=== PATIENT | male | born 1945 | race Caucasian/White ===

== ENCOUNTER 2017-08-21 11:55 | Day surgery (SDC) | payer MEDICARE, BC ==
[2017-08-21] MEDS ORDERED: LIDOCAINE HCL 10 APPL CARTRIDGE TP ONE (13:13)
--- NOTE | 2017-08-21 13:29 | OR ---
Operative Report - Dictated Report Narrative: Location: Main OR Anesthesia: Lidocaine jelly per urethra/local Preoperative Diagnosis: Gross hematuria Postoperative Diagnosis: Same, couple of false passages one in the area of prior AUS cuff erosion the other near bladder neck Procedure: #1 flexible cystoscopy with washing for cytology and culture Indications: 72-year-old male with history of prostate cancer post prostatectomy patient had AUS complicated by erosion and infection post explant. Significant incontinence and recent episode of gross hematuria. CT with left-sided renal stones but no other obvious pathology. Cystoscopy indicated to assess for bladder pathology and sure nothing else hiding there. Description: Consent obtained. Placed in the supine position. Prepped and draped. Time-out taken . Lidocaine jelly introduced into the urethra without incident. Flexible scope inserted into the urethra and navigated towards the bladder. Distal urethra has a blanching/colonization appearance secondary to colonization and significant incontinence. It is not pathologically narrowed. Prior distal cuff placement location remains as a slightly narrower portion of the urethra. At the 8 o'clock position is a small false passage-like opening I would say about the size of the cuff. Doesn't look like it tracts very far but obviously I did not tried to explore that with the scope. Bypassed easily navigated more proximally to the sphincter which does not coapt well. Anastomosis inspected and there is another false passage on the posterior right side again I did not introduce scope into that area but it almost gives the appearance that it is the right ureteric orifice. This is not the case. On further inspection both ureters are bit more proximal to this and there are normal post prostatectomy location effluxing clear urine. Bladder has some mild trabeculation but no tumor stones or suspicious lesions. They be a little bit of mild debris but nothing significant. Washing for cytology and culture. Anastomotic area looks okay other than that slight false passage like/ diverticular-like area. I don't think these are clinically significant but they may pose slight risk to future AUS placement and I would recommend cannulation and contrast injection to make sure that they dont track too far north or south. Normal urethra EBL: 0 Specimen: none Condition: tolerate procedure Important Findings: No clinically significant concerning cause for the gross hematuria. Diverticular/false passage-like areas near anastomosis posterior right side and in area of prior cuff placement 8 o'clock position. Could pose a problem on future AUS placement if those spaces entered or injured during future device placement as it would expose device to urinary tract. FOLLOW UP: I will see him in 12 months with a PSA/UA/creatinine. Sooner if trouble. Has already met with Dr. Kilgore.
[2017-08-21 13:45] VITALS: BP 144/67
== END 2017-08-21 11:56 | disposition home or self-care (01) ==
LOC: AMB 11:55
PROVIDERS: ATTEND Urology
PROC: 0TJB8ZZ Inspection of Bladder, Via Natural or Artificial Opening Endoscopic (ICD-10-PCS; principal; 2017-08-21)
PROC: 3E1K78Z Irrigation of Genitourinary Tract using Irrigating Substance, Via Natural or Artificial Opening (ICD-10-PCS; 2017-08-21)
DX: N20.0 Calculus of kidney; R31.0 Gross hematuria; Z85.46 Personal history of malignant neoplasm of prostate; N39.3 Stress incontinence (female) (male); Z79.899 Other long term (current) drug therapy

== ENCOUNTER 2020-01-23 22:24 | Inpatient (IN) ==
--- NOTE | 2020-01-23 22:54 | ERNOTE ---
Medical Problem HPI - General Chief Complaint: Fever Time Seen by Provider: 01/23/20 22:45 Source: patient, RN notes reviewed Exam Limitations: no limitations - Immun/Allergies/Home Medications Immunizations: IMMUNIZATION HX Immunizations Up to Date Yes History of Influenza Vaccine Yes Hx Pneumococcal Vaccination Yes Allergies/Adverse Reactions: Allergies Sulfa (Sulfonamide Antibiotics) [Sulfa(Sulfonamide Antibiotics)] Allergy (Severe, Verified 01/20/20 12:34) facial and tongue swelling tetracycline [Tetracycline] Allergy (Severe, Verified 01/20/20 12:34) facial and tongue swelling clindamycin Allergy (Intermediate, Verified 01/20/20 12:34) rash on genitals levofloxacin [From Levaquin] Adverse Reaction (Intermediate, Verified 01/20/20 12:34) severe rash seasonal allergies Adverse Reaction (Intermediate, Uncoded 01/20/20 12:34) rhinitis Home Medications: HOME MEDICATIONS Atorvastatin Calcium 20 mg PO DAILY 12/31/16 [Last Taken Unknown] Irbesartan [Avapro] 300 mg PO DAILY 12/31/16 [Last Taken Unknown] cyanocobalamin (vitamin B-12) 1,000 mcg tablet 1,000 mcg PO DAILY 01/24/18 [Last Taken Unknown] OneTouch Delica Lancets 30 gauge See Dose Instructions .ROUTE .MEDSUPPLY #200 ea NS 07/14/18 [Last Taken Unknown] dabigatran etexilate 150 mg capsule 150 mg PO BID 01/07/19 [Last Taken Unknown] polyethylene glycol 3350 17 gram/dose oral powder 17 g PO BID 01/07/19 [Last Taken Unknown] pregabalin 100 mg capsule 100 mg PO QID 01/07/19 [Last Taken Unknown] sennosides 8.6 mg tablet 8.6 mg PO BID 01/07/19 [Last Taken Unknown] clotrimazole-betamethasone 1 %-0.05 % topical cream 1 applic TP Q12H #45 g 06/08/19 [Last Taken Unknown] allopurinol 100 mg tablet 100 mg PO BID #180 tab 08/17/19 [Last Taken Unknown] blood sugar diagnostic See Dose Instructions .ROUTE .MEDSUPPLY #100 ea 09/14/19 [Last Taken Unknown] metformin 500 mg tablet 500 mg PO BID #180 tab 09/29/19 [Last Taken Unknown] mometasone 0.1 % topical solution 1 applic TP BID ml 11/17/19 [Last Taken Unknown] Aspirin [Aspirin EC] 81 mg PO DAILY 12/03/19 [Last Taken Unknown] Ferrous Sulfate [High Potency Iron] 27 mg PO DAILY 12/03/19 [Last Taken Unknown] Lactobacillus Rhamnosus GG [Culturelle] 1 tab PO DAILY 12/03/19 [Last Taken Unknown] Levomefolate/B6/B12/Algal Oil [Metanx Capsule] 1 ea PO DAILY 12/03/19 [Last Taken Unknown] Metoprolol Succinate [Toprol Xl] 50 mg PO DAILY 12/03/19 [Last Taken Unknown] acetaminophen 500 mg tablet 500 mg PO Q6H PRN #0.1 tab 12/04/19 [Last Taken Unknown] amlodipine 2.5 mg tablet 2.5 mg PO DAILY #0.1 tab 12/04/19 [Last Taken Unknown] hydrochlorothiazide 12.5 mg tablet 12.5 mg PO DAILY #30 tab 12/17/19 [Last Taken Unknown] fentanyl 12 mcg/hr transdermal patch 1 patch TRANSDERMAL Q72H #5 ea 01/13/20 [Last Taken Unknown] - History of Present History Narrative: Patient is a 74-year-old white male with past medical history significant diabetes, hypertension, hyperlipidemia, obstructive sleep apnea was in his usual state of health until yesterday afternoon when he began having fatigue, malaise, headache and low-grade fevers which progressed to higher fevers today with associated shortness of breath. He denies a productive cough, chest pain, ill contacts or wheezing. He does state he has had nausea but no vomiting, orthopnea and lower extremity edema. He denies history of CHF, but has had A. fib in the past, but is on no anticoagulants. He does take an 81 mg aspirin daily. He has no known ill contacts. Denies any abdominal pain, diarrhea or constipation. He has had some urinary frequency and hesitation. He has become progressively weaker and more dyspneic on exertion throughout the day. Timing: getting worse Severity: moderate Modifying Factors - (Improves): Present: rest Modifying Factors - (Worsens): Present: movement Review of Systems - Review of Systems Constitutional: Present: fever, weakness, fatigue, malaise. Absent: chills EYE: Absent: blurred vision, double vision ENT: Absent: nose congestion, sore throat Respiratory: Present: shortness of breath, orthopnea. Absent: cough, wheezing, stridor Cardiology: Present: edema. Absent: chest pain, palpitations, syncope, claudication Gastrointestinal/Abdominal: Present: nausea. Absent: vomiting, diarrhea, constipation, abdominal pain Genitourinary: Present: frequency, dysuria. Absent: hematuria, decreased urinary output Musculoskeletal: Absent: back pain, muscle stiffness, neck pain, joint pain Skin: Present: no symptoms reported Neurological: Present: headache, dizziness/light-headedness, weakness. Absent: numbness, tingling Endocrine: Absent: excessive sweating, flushing, intolerance to heat, intolerance to cold Hematologic/Lymphatic: Absent: easy bruising, easy bleeding Psych: Absent: anxiety, depressed Medical History (Last Reviewed 01/24/20 @ 00:21 by Jose Ramon Cruz MD) Diabetic ulcer of left foot (Acute) Onset Date: Unknown BPH with urinary obstruction Onset Date: Unknown Dr. Raul Fall MD Back pain Onset Date: Unknown L2-3 disc bulge Incontinence Onset Date: Unknown Influenza vaccine refused Onset Date: Unknown Wants to receive at later date. 04/06/19. [facility] Prostate cancer Onset Date: Unknown Urinary incontinence Onset Date: Unknown Atrial fibrillation Onset Date: ~1995 PAF Coronary artery disease Onset Date: Unknown Diabetes Onset Date: Unknown Diabetes mellitus type 2 in obese Onset Date: Unknown Elevated cholesterol Onset Date: Unknown Hyperlipidemia Onset Date: Unknown Hypertension Onset Date: Unknown Joint pain Onset Date: 09/06/11 Neuropathy Onset Date: Unknown Obesity Onset Date: Unknown Osteoarthritis Onset Date: 09/06/11 Sleep apnea Onset Date: Unknown CPAP Hx of intestinal obstruction Onset Date: Unknown Kidney stones Onset Date: ~08/2002 Partial small bowel obstruction Onset Date: Unknown Surgical History: Surgical History (Last Reviewed 01/24/20 @ 00:21 by Jose Ramon Cruz MD) Abnormal colonoscopy Onset Date: 01/09/10 [place]-2 tubular adenomas and 1 hyperplastic polyp H/O barium enema Onset Date: 05/19/15 normal-redundant colon. Recheck in 10 years. H/O cardiac catheterization Onset Date: 11/26/02 normal EF minimal CAD right dominant H/O cardioversion Onset Date: 01/21/03 Dr. Leonardo SAVAGE H/O lithotripsy Onset Date: ~05/2008 H/O radical prostatectomy Onset Date: ~12/2009 History of extraction of renal calculus Onset Date: ~07/2008 History of gastric surgery Onset Date: ~1999 Hx of abdominal surgery Onset Date: Unknown Hx of total knee arthroplasty Onset Date: ~2009 [place] Normal colonoscopy Onset Date: 05/18/15 03/14/01' Karlabiancajayant. 15' Rei-extremely redundant capacious colon. Normal to hepatic flexure. Barium edema done-nomal. Recheck 10 years with barium edema. Normal cystoscopy Onset Date: 12/09/13 [place] Status post epidural steroid injection Onset Date: 05/18/15 x2 07/22/02 artificial urinary sphincter insertion Onset Date: ~2010 [facility] Family History: Family History (Last Reviewed 01/24/20 @ 00:21 by Jose Ramon Cruz MD) Brother Heart disease, Onset Age: 44 coronary stent placement Neuropathy Brother , age 7-ruptured appendix age 65- suicide Ruptured appendix suicide Father , 77 Emphysema of lung Mother , 62 Myocardial infarction Hypertension Cancer Breast Diabetes Heart disease Sister Myocardial infarction Heart disease Sister Myocardial infarction 44, 48, 62, and 65 Cancer, Onset Age: 62 breast CHF (congestive heart failure), Onset Age: 85 Son A-fib paroxysmal Social History: (Last Reviewed 01/24/20 @ 00:21 by Jose Ramon Cruz MD) Social History: Marital status: household members: spouse current occupational status: retired Highest education level completed: high school graduate Service: No Tobacco: Smoking Status: Never smoker Alcohol: alcohol intake: former Substance Use: substance use type: does not use Dietary Habits: caffeine: Yes caffeine comment: 2-3 Type: coffee Personal Safety: victim of physical abuse: No victim of sexual abuse: No Physical Exam - Physical Exam General Appearance: Present: wd/wn, alert, moderate distress, other - Looks tired and weak Head Exam: Present: normal inspection, no evidence of injury Eye Exam: Normal inspection: bilateral, PERRL: bilateral, EOMI: bilateral Neck: Present: supple Respiratory: Present: no accessory muscle use, respiratory distress, rales Cardiovascular/Chest: Present: regular rate, rhythm, systolic murmur - Significant left upper sternal border murmur - 5/6 Gastrointestinal/Abdominal: Present: normal bowel sounds, nontender, no ndistended, soft, no organomegaly Extremity Exam: Present: non-tender, extremity edema Neurological Exam: Present: alert, oriented, normal mood/affect, no motor/sensory deficits Skin Exam: Present: normal color, warm/dry Progress - Results and Orders Patient's Lab Results:: I have reviewed the patient's lab results. Results and Orders: Laboratory Tests 01/23/20 01/23/20 23:00 23:00 Sodium 138 Plasma Sodium 139 Potassium 3.4 Chloride 105 Carbon Dioxide 21.7 L Anion Gap 14.7 H BUN 53 H D Creatinine 2.40 H D Est GFR (Non-Af Amer) 28 L D BUN/Creatinine Ratio 22.1 H Random Glucose 177 H Lactic Acid, Venous 4.1 H* Calcium 8.5 Calcium Adj for Albumin 9.1 Total Bilirubin 2.8 H AST 61 H ALT 69 H Alkaline Phosphatase 186 H Troponin I 0.363 H* C-Reactive Prot, Quant Pending B-Natriuretic Peptide 5884 H Total Protein 6.5 Albumin 2.8 L Laboratory Tests 01/23/20 23:10 WBC 18.4 H RBC 3.95 L Hgb 12.0 L Hct 36.7 L MCV 92.9 MCH 30.4 MCHC 32.7 RDW 15.1 H Plt Count 64 L MPV 13.0 H Neutrophils % (Manual) 85 H Band Neuts % (Manual) 2 Lymphocytes % (Manual) 6 L Monocytes % (Manual) 4 Immature Granulocytes 2 H Neutrophils # (Manual) 15.6 H Lymphocytes # (Manual) 1.1 L Monocytes # (Manual) 0.7 Atypic/Reactive Lymphs 1 Platelet Estimate Decreased L Laboratory Tests 01/23/20 23:00 SARS-CoV-2 (PCR) Not detected Laboratory Tests 01/23/20 23:00 PT 14.7 H INR (Anticoag Therapy) 1.51 H PTT (Sarmad) 41.8 H Laboratory Tests 01/23/20 23:55 Urine Color Dark yellow Urine Appearance Slightly cloudy Urine pH 5.0 Ur Specific [place] 1.020 Urine Protein 15 H Urine Glucose (UA) Negative Urine Ketones 5 Urine Blood 50 H Urine Nitrate Negative Urine Bilirubin 1 H Urine Ictotest Negative Prot Sulfosalicylic Acd Negative Urine Urobilinogen Normal Ur Leukocyte Esterase 25 H Urine RBC 0-5 Urine WBC 0-5 Ur Epithelial Cells Trace Amorphous Sediment Moderate - 2+ H Urine Bacteria 1+ H Urine Culture Comments Culture to follow Repeat troponin I was 0.353, repeat lactic acid was 2.3 - Vital Signs Patient's Vital Signs:: I have reviewed the patient's vital signs. Vital Signs: Vital Signs 01/23/20 22:36 Temperature 39.5 C H Pulse Rate 62 Respiratory Rate 20 Blood Pressure 135/45 O2 Sat by Pulse Oximetry 95 - EKG EKG #1 EKG read: Interp. by me EKG Comments: Paced EKG. EKG #2 EKG: other - Paced EKG unchanged from previous earlier this evening. EKG read: Interp. by me - X-Ray X-Ray #1 X-Ray: chest Interpretation: Interp. by me X-ray Comments: Chest x-ray shows pulmonary edema bilaterally. Right lower lobe consolidation. Noted pacemaker in left upper chest wall - Progress/Reassessment Chief Complaint: Fever Progress:: Improved Progress Note-Subjective: 01/24/20 02:13 Patient states that nausea had improved after Aspirin given and he feels less short of breath. 01/24/20 03:51 Uncertainty as to how much urine output patient has had due to incontinence. Patient did express feeling better at time of transfer to the floor. - Transfer of Care Expected Disposition: Admit Additional Notes: Patient discussed with Dr. Horne was agreeable to admit patient for sepsis, pneumonia, acute CHF, cardiac strain and acute kidney injury. Discussed with her troponin I trends, lactic acid trends and the fact that no IV fluids were given due to stable blood pressures, heart rate and the fact that patient had elevated BNP with chest x-ray consistent with pulmonary edema. Plan - Plan Plan: Patient with numerous abnormalities. Given his past medical history will check to be sure is not an CHF given his shortness of breath, orthopnea and lower extremity edema. Also check to make sure is not having an acute SD though initial EKG is hard to interpret given his pacemaker. Given his fever would also be worried about a pneumonia. Patient does have lactic acidosis with a level of 4.1 but also has an elevated BMP of 5800 and no history of CHF in the past. Lactic acidosis could be secondary to acute coronary syndrome, though given his fever would be more likely associated with sepsis. Chest x-ray does show possible pneumonia but also shows some pulmonary edema and blood pressures and heart rate are normal so will not give him fluid bolus at this time. Given his elevated troponin, again this could be cardiac strain versus acute coronary syndrome. We will give him aspirin, Lasix for the CHF and pulmonary edema and monitor his symptoms. Nitroglycerin was a consideration but was not given to him due to concerns for bottoming out his pressures given that he has findings consistent with sepsis and were about to give him some Lasix for his CHF. We will repeat his troponin I, 3 hours from the initial 1. If this is trending up we will look to transfer to facility with cardiology. Patient would prefer going to [facility] as that is where he follows with cardiology, but we were informed earlier this evening that [facility] has no available beds. Also given Medicare rules we would need to first look to [facility] as an initial transfer consideration. Due to troponin I trending down slightly, as well as improvement in the lactic acid despite no IV fluids given, felt patient was stable enough for admission here. Discussed with Dr. Horne who is agreeable to this. Departure Clinical Impression: Sepsis, Lactic acidosis, Elevated troponin I level, MANDEEP (acute kidney injury) CHF (congestive heart failure) Qualifiers: Heart failure type: combined systolic and diastolic Heart failure chronicity: acute Qualified Code(s): I50.41 - Acute combined systolic (congestive) and diastolic (congestive) heart failure Right lower lobe pneumonia Qualifiers: Pneumonia type: due to unspecified organism Qualified Code(s): J18.9 - Pneumonia, unspecified organism - Departure Disposition: Still a patient Condition: Fair
[2020-01-23 23:18] LABS: Hematocrit 36.7 % (42.0-52.0); Mean Cell Volume 92.9 fl (78-100); Mean Corpuscular Hemoglobin 30.4 pg (27-31); Mean Corpuscular Hgb Conc 32.7 g/dl (32-36); Red Blood Count 3.95 M/mm3 (4.7-6.0); Red Cell Distribution Width 15.1 % (11.5-14.0); White Blood Count 18.4 K/mm3 (4.0-10.5)
[2020-01-23 23:39] LABS: Albumin * 2.8 gm/dl (3.4-5.0); Anion Gap 14.7 mmol/L (6.8-13.8); BUN/Creatinine Ratio 22.1 (9.0-21.6); Bilirubin, Total 2.8 mg/dL (0.0-1.1); Ca. Corrected For Albumin 9.1 mg/dL (8.4-10.2); Calcium * 8.5 mg/dL (7.9-10.9); Carbon Dioxide 21.7 mmol/L (24-32.6); Potassium 3.4 mmol/L (3.4-4.6); Total Protein 6.5 gm/dL (6.2-8.2)
[2020-01-23] MEDS ORDERED: RINGER'S SOLUTION,LACTATED 1,000 ML IV ONE (23:42)
[2020-01-23 23:46] LABS: Troponin I 0.363 ng/mL (0.00-0.10)
[2020-01-24 00:04] LABS: Platelet Count 64 K/mm3 (150-450)
[2020-01-24 00:05] LABS: Total Cells Counted 100
[2020-01-24 00:06] LABS: Atypical (Reactive) Lymph 1 % (0-2); Band 2 % (0-2.0); Immature Granulocyte 2 (0-1); Lymphocyte 6 % (20-51); Monocyte 4 % (0-9); Neutrophil 85 % (42-75); Neutrophil # 15.6 K/mm3 (1.3-6.0); Platelet Estimate Decreased (NORMAL)
[2020-01-24] MEDS ORDERED: ASPIRIN 81 MG TAB.CHEW PO STA (00:08)
[2020-01-24] MEDS ORDERED: NITROGLYCERIN 0.4 MG/TAB BTL SL STA (00:08)
[2020-01-24 00:11] LABS: CRP 22.5 mg/dL (0.0-0.9)
[2020-01-24] MEDS ORDERED: cefTRIAXone SODIUM 1,000 MG/100 ML BAG IV ONE (00:12)
[2020-01-24] MEDS ORDERED: FUROSEMIDE 10 MG/ML VIAL IV STA (00:12)
[2020-01-24 00:17] LABS: Prothrombin Time (Patient) 14.7 Seconds (9.1-10.7)
[2020-01-24 00:19] LABS: INR 1.51 INR (0.92-1.08); Partial Thrombolplastin Time 41.8 Seconds (24-32)
[2020-01-24] MEDS ORDERED: ACETAMINOPHEN 1,000 MG/100 ML BTL IV PRN (00:19)
[2020-01-24 00:33] LABS: Urine Bilirubin 1 mg/dl (NEGATIVE); Urine Blood 50 /ul (NEGATIVE); Urine Ketone 5 mg/dL (NEGATIVE); Urine Nitrite Negative (NEGATIVE); Urine Protein 15 mg/dL (NEGATIVE); Urine Urobilinogen Normal (NORMAL)
[2020-01-24 00:42] LABS: Urine Amorphous Sediment Moderate - 2+ (NONE-FEW); Urine Appearance Slightly Cloudy (CLEAR); Urine Bacteria 1+; Urine Color Dark Yellow; Urine RBC 0-5 /hpf (0-5); Urine WBC 0-5 /hpf (0-5)
[2020-01-24] MEDS ORDERED: ACETAMINOPHEN 325 MG TABLET PO PRN (03:00)
[2020-01-24] MEDS: NORMAL SALINE 1,000 ML IV PRN ×3 (04:09→20:35)
[2020-01-24 06:50] LABS: Hematocrit 32.6 % (42.0-52.0); Hemoglobin 10.8 gm/dL (13.5-18.0); Mean Cell Volume 93.4 fl (78-100); Mean Corpuscular Hemoglobin 30.9 pg (27-31); Mean Corpuscular Hgb Conc 33.1 g/dl (32-36); Mean Platelet Volume 12.7 fl (8-11.3); Neutrophil # 14.4 K/mm3 (1.3-6.0); Neutrophil % 83.9 % (42-75.0); Platelet Count 57 K/mm3 (150-450); Red Blood Count 3.49 M/mm3 (4.7-6.0); Red Cell Distribution Width 15.2 % (11.5-14.0); White Blood Count 17.2 K/mm3 (4.0-10.5)
[2020-01-24 07:07] LABS: Anion Gap 12.6 mmol/L (6.8-13.8); BUN/Creatinine Ratio 26.4 (9.0-21.6); Calcium * 8.3 mg/dL (7.9-10.9); Carbon Dioxide 24.7 mmol/L (24-32.6); Estimated Creat Clear 34.8; Potassium 3.3 mmol/L (3.4-4.6)
[2020-01-24] MEDS: INSULIN REGULAR, HUMAN 100 UNITS/ML VIAL SC SCH ×4 (07:21→21:23)
--- NOTE | 2020-01-24 10:15 | HP ---
Chief Complaint - Chief Complaint Date of Service: 01/24/20 Time of Service: 10:15 Chief Complaint: fever History of Present Illness: Patient with past medical history of aortic stenosis status post TAVR, coronary artery disease, status post pacemaker, previous CVA, and two skin ulcers on his left foot, type 2 diabetes, RHODA on CPAP, previous prostate cancer, diabetic neuropathy. He had a CAT scan and a bone scan on at [facility] to investigate for potential recurrent prostate cancer. His temperature when he got home on was 100.3, and he attributed it to his testing. Temp was okay on Saturday, but yesterday he slept all day and his insisted he come to the hospital. He has a little shortness of breath and some edema. Denies cough. Denies urinary symptoms. No diarrhea. He does have a couple of foot ulcers on his left foot, followed by podiatry. He has not had recent medication changes. In the ED, there was suspicion for sepsis because he was febrile with a lactate of 4.1, elevated WPC of 18.4, tachypnea. However, his BP was not decreased, he was not tachycardic. There was some concern for pulmonary edema on his CXR, so he was not give a fluid bolus, and his lactate resolved. He was given a dose of 20 mg IV lasix. He did not require supplemental oxygen. He was given rocephin for the possible sepsis and fever. Urine was positive for leukocyte esterase, but only 1+ bacteria. Urine culture pending. Troponin was elevated at 0.363 on initial check, and has trended down from there. EKG in the ED showed mild possible ST depression, but he has a pacemaker. These changes not present on repeat EKG. On my admission history and physical, he reports feeling better than yesterday. He feels more alert. Medical History (Last Reviewed 01/24/20 @ 04:30 by Macrina Williamson RN) Diabetic ulcer of left foot (Acute) Onset Date: Unknown BPH with urinary obstruction Onset Date: Unknown Dr. Raul Fall MD Back pain Onset Date: Unknown L2-3 disc bulge Incontinence Onset Date: Unknown Influenza vaccine refused Onset Date: Unknown Wants to receive at later date. 04/06/19. [facility] Prostate cancer Onset Date: Unknown Urinary incontinence Onset Date: Unknown Atrial fibrillation Onset Date: ~1995 PAF Coronary artery disease Onset Date: Unknown Diabetes Onset Date: Unknown Diabetes mellitus type 2 in obese Onset Date: Unknown Elevated cholesterol Onset Date: Unknown Hyperlipidemia Onset Date: Unknown Hypertension Onset Date: Unknown Joint pain Onset Date: 09/06/11 Neuropathy Onset Date: Unknown Obesity Onset Date: Unknown Osteoarthritis Onset Date: 09/06/11 Sleep apnea Onset Date: Unknown CPAP Hx of intestinal obstruction Onset Date: Unknown Kidney stones Onset Date: ~08/2002 Partial small bowel obstruction Onset Date: Unknown Surgical History: Surgical History (Last Reviewed 01/24/20 @ 04:30 by Macrina Williamson RN) Hx of aortic valve replacement Onset Date: ~10/2019 U oF I Hx of heart surgery Onset Date: ~10/2019 U of I-Tevac procedure Abnormal colonoscopy Onset Date: 01/09/10 Bagan-2 tubular adenomas and 1 hyperplastic polyp H/O barium enema Onset Date: 05/19/15 normal-redundant colon. Recheck in 10 years. H/O cardiac catheterization Onset Date: 11/26/02 normal EF minimal CAD right dominant H/O cardioversion Onset Date: 01/21/03 Dr. Leonardo SAVAGE H/O lithotripsy Onset Date: ~05/2008 H/O radical prostatectomy Onset Date: ~12/2009 History of extraction of renal calculus Onset Date: ~07/2008 History of gastric surgery Onset Date: ~1999 Hx of abdominal surgery Onset Date: Unknown Hx of total knee arthroplasty Onset Date: ~2009 Left-[facility], [place] Normal colonoscopy Onset Date: 05/18/15 03/14/01 01' [place]. 15' Bagan-extremely redundant capacious colon. Normal to hepatic flexure. Barium edema done-nomal. Recheck 10 years with barium edema. Normal cystoscopy Onset Date: 12/09/13 [facility] Status post epidural steroid injection Onset Date: 05/18/15 x2 07/22/02 artificial urinary sphincter insertion Onset Date: ~2010 [facility] Family History: Family History (Last Reviewed 01/24/20 @ 04:30 by Macrina Williamson RN) Brother Heart disease, Onset Age: 44 coronary stent placement Neuropathy Brother , age 7-ruptured appendix age 65- suicide Ruptured appendix suicide Father , 77 Emphysema of lung Mother , 62 Myocardial infarction Hypertension Cancer Breast Diabetes Heart disease Sister Myocardial infarction Heart disease Sister Myocardial infarction 44, 48, 62, and 65 Cancer, Onset Age: 62 breast CHF (congestive heart failure), Onset Age: 85 Son A-fib paroxysmal Social History: (Last Updated 01/24/20 @ 04:33 by Macrina Williamson RN) Social History: Marital status: household members: spouse current occupational status: retired Highest education level completed: Bachelor's degree Service: No Tobacco: Smoking Status: Never smoker Alcohol: alcohol intake: former Substance Use: substance use type: does not use Dietary Habits: caffeine: Yes caffeine comment: 2-3 Type: coffee Personal Safety: victim of physical abuse: No victim of sexual abuse: No Review Of Systems (GEN) - Review of Systems Generalized/Overall Review: Present: Weakness, Fever Respiratory: Present: Shortness of Breath. Absent: Cough Cardiac: Absent: Chest Pain, Edema Abdominal: Present: No Symptoms Reported Genitourinary: Present: Incontinent. Absent: Hesitancy, Dysuria Musculoskeletal: Present: No Symptoms Reported Neurological: Present: Numbness, Tingling - neuropathy of bilateral feet Skin: Present: Other - ulcer of left 3rd toe and left planter surface of foot Immunizations: IMMUNIZATION HX Immunizations Up to Date Yes History of Influenza Vaccine Yes Hx Pneumococcal Vaccination Yes Allergies/Adverse Reactions: Allergies Allergy/AdvReac Type Severity Reaction Status Date / Time Sulfa (Sulfonamide Allergy Severe facial and Verified 01/20/20 12:34 Antibiotics) tongue [Sulfa(Sulfonamide swelling Antibiotics)] tetracycline [Tetracycline] Allergy Severe facial and Verified 01/20/20 12:34 tongue swelling clindamycin Allergy Intermediate rash on Verified 01/20/20 12:34 genitals levofloxacin [From Levaquin] AdvReac Intermediate severe rash Verified 01/20/20 12:34 seasonal allergies AdvReac Intermediate rhinitis Uncoded 01/20/20 12:34 Home Medications: HOME MEDICATIONS Atorvastatin Calcium 20 mg PO DAILY 12/31/16 [Last Taken Unknown] Irbesartan [Avapro] 300 mg PO DAILY 12/31/16 [Last Taken Unknown] cyanocobalamin (vitamin B-12) 1,000 mcg tablet 1,000 mcg PO DAILY 01/24/18 [Last Taken Unknown] OneTouch Delica Lancets 30 gauge See Dose Instructions .ROUTE .MEDSUPPLY #200 ea NS 07/14/18 [Last Taken Unknown] dabigatran etexilate 150 mg capsule 150 mg PO BID 01/07/19 [Last Taken Unknown] polyethylene glycol 3350 17 gram/dose oral powder 17 g PO BID 01/07/19 [Last Taken Unknown] pregabalin 100 mg capsule 100 mg PO QID 01/07/19 [Last Taken Unknown] sennosides 8.6 mg tablet 8.6 mg PO BID 01/07/19 [Last Taken Unknown] allopurinol 100 mg tablet 100 mg PO BID #180 tab 08/17/19 [Last Taken Unknown] blood sugar diagnostic See Dose Instructions .ROUTE .MEDSUPPLY #100 ea 09/14/19 [Last Taken Unknown] metformin 500 mg tablet 500 mg PO BID #180 tab 09/29/19 [Last Taken Unknown] mometasone 0.1 % topical solution 1 applic TP BID ml 11/17/19 [Last Taken Unknown] Aspirin [Aspirin EC] 81 mg PO DAILY 12/03/19 [Last Taken Unknown] Ferrous Sulfate [High Potency Iron] 27 mg PO DAILY 12/03/19 [Last Taken Unknown] Lactobacillus Rhamnosus GG [Culturelle] 1 tab PO DAILY 12/03/19 [Last Taken Unknown] Levomefolate/B6/B12/Algal Oil [Metanx Capsule] 1 ea PO DAILY 12/03/19 [Last Taken Unknown] Metoprolol Succinate [Toprol Xl] 50 mg PO DAILY 12/03/19 [Last Taken Unknown] acetaminophen 500 mg tablet 500 mg PO Q6H PRN #0.1 tab 12/04/19 [Last Taken Unknown] amlodipine 2.5 mg tablet 2.5 mg PO DAILY #0.1 tab 12/04/19 [Last Taken Unknown] hydrochlorothiazide 12.5 mg tablet 12.5 mg PO DAILY #30 tab 12/17/19 [Last Taken Unknown] fentanyl 12 mcg/hr transdermal patch 1 patch TRANSDERMAL Q72H #5 ea 01/13/20 [Last Taken Unknown] Clotrimazole/Betamethasone Dip [Lotrisone Cream] 1 applic TOPICAL PRN 01/24/20 [Last Taken Unknown] Flecainide Acetate 100 mg PO BID 01/24/20 [Last Taken Unknown] Pregabalin [Lyrica] 100 mg PO QID 01/24/20 [Last Taken Unknown] Exam - Exam Vital Signs: Vital Signs - Last Taken Temp 36.5 C 01/24/20 04:12 Pulse 63 01/24/20 10:06 Resp 20 01/24/20 08:00 BP 108/58 01/24/20 08:00 Pulse Ox 100 01/24/20 08:00 Constitutional: Present: Alert, Cooperative, No distress, Obese Respiratory: Present: lungs clear, normal breath sounds, no respiratory distress Cardiovascular/Chest: Present: regular rate, rhythm Abdomen: Present: soft, nontender, obese Extremity: Absent: lower extremity edema Skin Exam: Present: other - 2 1 cm stage II ulcers of left 3rd toe and left plantar surface at head of 3rd metatarsal Appearance: Present: appropriate insight Eye contact: Present: cooperative Diagnostic Studies: Abnormal Lab Results 01/23/20 01/23/20 01/23/20 Range/Units 23:00 23:00 23:00 WBC (4.0-10.5) K/mm3 RBC (4.7-6.0) M/mm3 Hgb (13.5-18.0) gm/dL Hct (42.0-52.0) % RDW (11.5-14.0) % Plt Count (150-450) K/mm3 MPV (8-11.3) fl Immature Gran % (Auto) (0.001-0.429) % Immature Gran # (Auto) (0.000-0.0310) K/mm3 Neutrophils % (42-75.0) % Neutrophils % (Manual) (42-75) % Lymphocytes % (20-51) % Lymphocytes % (Manual) (20-51) % Immature Granulocytes (0-1) Neutrophils # (1.3-6.0) K/mm3 Neutrophils # (Manual) (1.3-6.0) K/mm3 Lymphocytes # (1.5-3.5) k/mm3 Lymphocytes # (Manual) (1.5-3.5) k/mm3 Monocytes # (0.0-1.0) k/mm3 Platelet Estimate (NORMAL) PT 14.7 H (9.1-10.7) Seconds INR (Anticoag Therapy) 1.51 H (0.92-1.08) INR PTT ([place]) 41.8 H (24-32) Seconds Potassium (3.4-4.6) mmol/L Chloride (97-106) mmol/L Carbon Dioxide 21.7 L (24-32.6) mmol/L Anion Gap 14.7 H (6.8-13.8) mmol/L BUN 53 H D (6-23) mg/dL Creatinine 2.40 H D (0.4-1.4) mg/dL Est GFR (Non-Af Amer) 28 L D (60-130) mL/min BUN/Creatinine Ratio 22.1 H (9.0-21.6) Random Glucose 177 H (70-110) mg/dL Lactic Acid, Venous 4.1 H* (0.4-2.0) mmol/L Total Bilirubin 2.8 H (0.0-1.1) mg/dL AST 61 H (0-48) U/L ALT 69 H (19-67) U/L Alkaline Phosphatase 186 H (50-170) U/L Troponin I 0.363 H* (0.00-0.10) ng/mL C-Reactive Prot, Quant 22.5 H (0.0-0.9) mg/dL B-Natriuretic Peptide 5884 H (5-650) pg/mL Albumin 2.8 L (3.4-5.0) gm/dl Urine Protein (NEGATIVE) mg/dL Urine Blood (NEGATIVE) /ul Urine Bilirubin (NEGATIVE) mg/dl Ur Leukocyte Esterase (NEGATIVE) /ul Amorphous Sediment (NONE-FEW) Urine Bacteria (NONE) 01/23/20 01/23/20 01/24/20 Range/Units 23:10 23:55 02:00 WBC 18.4 H (4.0-10.5) K/mm3 RBC 3.95 L (4.7-6.0) M/mm3 Hgb 12.0 L (13.5-18.0) gm/dL Hct 36.7 L (42.0-52.0) % RDW 15.1 H (11.5-14.0) % Plt Count 64 L (150-450) K/mm3 MPV 13.0 H (8-11.3) fl Immature Gran % (Auto) (0.001-0.429) % Immature Gran # (Auto) (0.000-0.0310) K/mm3 Neutrophils % (42-75.0) % Neutrophils % (Manual) 85 H (42-75) % Lymphocytes % (20-51) % Lymphocytes % (Manual) 6 L (20-51) % Immature Granulocytes 2 H (0-1) Neutrophils # (1.3-6.0) K/mm3 Neutrophils # (Manual) 15.6 H (1.3-6.0) K/mm3 Lymphocytes # (1.5-3.5) k/mm3 Lymphocytes # (Manual) 1.1 L (1.5-3.5) k/mm3 Monocytes # (0.0-1.0) k/mm3 Platelet Estimate Decreased L (NORMAL) PT (9.1-10.7) Seconds INR (Anticoag Therapy) (0.92-1.08) INR PTT ([place]) (24-32) Seconds Potassium (3.4-4.6) mmol/L Chloride (97-106) mmol/L Carbon Dioxide (24-32.6) mmol/L Anion Gap (6.8-13.8) mmol/L BUN (6-23) mg/dL Creatinine (0.4-1.4) mg/dL Est GFR (Non-Af Amer) (60-130) mL/min BUN/Creatinine Ratio (9.0-21.6) Random Glucose (70-110) mg/dL Lactic Acid, Venous 2.3 H* (0.4-2.0) mmol/L Total Bilirubin (0.0-1.1) mg/dL AST (0-48) U/L ALT (19-67) U/L Alkaline Phosphatase (50-170) U/L Troponin I (0.00-0.10) ng/mL C-Reactive Prot, Quant (0.0-0.9) mg/dL B-Natriuretic Peptide (5-650) pg/mL Albumin (3.4-5.0) gm/dl Urine Protein 15 H (NEGATIVE) mg/dL Urine Blood 50 H (NEGATIVE) /ul Urine Bilirubin 1 H (NEGATIVE) mg/dl Ur Leukocyte Esterase 25 H (NEGATIVE) /ul Amorphous Sediment Moderate - 2+ H (NONE-FEW) Urine Bacteria 1+ H (NONE) 01/24/20 01/24/20 01/24/20 Range/Units 02:00 06:40 06:40 WBC 17.2 H (4.0-10.5) K/mm3 RBC 3.49 L (4.7-6.0) M/mm3 Hgb 10.8 L (13.5-18.0) gm/dL Hct 32.6 L (42.0-52.0) % RDW 15.2 H (11.5-14.0) % Plt Count 57 L (150-450) K/mm3 MPV 12.7 H (8-11.3) fl Immature Gran % (Auto) 0.50 H (0.001-0.429) % Immature Gran # (Auto) 0.09 H (0.000-0.0310) K/mm3 Neutrophils % 83.9 H (42-75.0) % Neutrophils % (Manual) (42-75) % Lymphocytes % 6.9 L (20-51) % Lymphocytes % (Manual) (20-51) % Immature Granulocytes (0-1) Neutrophils # 14.4 H (1.3-6.0) K/mm3 Neutrophils # (Manual) (1.3-6.0) K/mm3 Lymphocytes # 1.18 L (1.5-3.5) k/mm3 Lymphocytes # (Manual) (1.5-3.5) k/mm3 Monocytes # 1.4 H (0.0-1.0) k/mm3 Platelet Estimate (NORMAL) PT (9.1-10.7) Seconds INR (Anticoag Therapy) (0.92-1.08) INR PTT ([place]) (24-32) Seconds Potassium 3.3 L (3.4-4.6) mmol/L Chloride 107 H (97-106) mmol/L Carbon Dioxide (24-32.6) mmol/L Anion Gap (6.8-13.8) mmol/L BUN 57 H (6-23) mg/dL Creatinine 2.16 H (0.4-1.4) mg/dL Est GFR (Non-Af Amer) 32 L (60-130) mL/min BUN/Creatinine Ratio 26.4 H (9.0-21.6) Random Glucose 187 H (70-110) mg/dL Lactic Acid, Venous (0.4-2.0) mmol/L Total Bilirubin (0.0-1.1) mg/dL AST (0-48) U/L ALT (19-67) U/L Alkaline Phosphatase (50-170) U/L Troponin I 0.353 H* (0.00-0.10) ng/mL C-Reactive Prot, Quant (0.0-0.9) mg/dL B-Natriuretic Peptide (5-650) pg/mL Albumin (3.4-5.0) gm/dl Urine Protein (NEGATIVE) mg/dL Urine Blood (NEGATIVE) /ul Urine Bilirubin (NEGATIVE) mg/dl Ur Leukocyte Esterase (NEGATIVE) /ul Amorphous Sediment (NONE-FEW) Urine Bacteria (NONE) 01/24/20 Range/Units 08:47 WBC (4.0-10.5) K/mm3 RBC (4.7-6.0) M/mm3 Hgb (13.5-18.0) gm/dL Hct (42.0-52.0) % RDW (11.5-14.0) % Plt Count (150-450) K/mm3 MPV (8-11.3) fl Immature Gran % (Auto) (0.001-0.429) % Immature Gran # (Auto) (0.000-0.0310) K/mm3 Neutrophils % (42-75.0) % Neutrophils % (Manual) (42-75) % Lymphocytes % (20-51) % Lymphocytes % (Manual) (20-51) % Immature Granulocytes (0-1) Neutrophils # (1.3-6.0) K/mm3 Neutrophils # (Manual) (1.3-6.0) K/mm3 Lymphocytes # (1.5-3.5) k/mm3 Lymphocytes # (Manual) (1.5-3.5) k/mm3 Monocytes # (0.0-1.0) k/mm3 Platelet Estimate (NORMAL) PT (9.1-10.7) Seconds INR (Anticoag Therapy) (0.92-1.08) INR PTT ([place]) (24-32) Seconds Potassium (3.4-4.6) mmol/L Chloride (97-106) mmol/L Carbon Dioxide (24-32.6) mmol/L Anion Gap (6.8-13.8) mmol/L BUN (6-23) mg/dL Creatinine (0.4-1.4) mg/dL Est GFR (Non-Af Amer) (60-130) mL/min BUN/Creatinine Ratio (9.0-21.6) Random Glucose (70-110) mg/dL Lactic Acid, Venous (0.4-2.0) mmol/L Total Bilirubin (0.0-1.1) mg/dL AST (0-48) U/L ALT (19-67) U/L Alkaline Phosphatase (50-170) U/L Troponin I 0.172 H* (0.00-0.10) ng/mL C-Reactive Prot, Quant (0.0-0.9) mg/dL B-Natriuretic Peptide (5-650) pg/mL Albumin (3.4-5.0) gm/dl Urine Protein (NEGATIVE) mg/dL Urine Blood (NEGATIVE) /ul Urine Bilirubin (NEGATIVE) mg/dl Ur Leukocyte Esterase (NEGATIVE) /ul Amorphous Sediment (NONE-FEW) Urine Bacteria (NONE) Laboratory Results WBC 17.2 K/mm3 (4.0-10.5) H 01/24/20 06:40 RBC 3.49 M/mm3 (4.7-6.0) L 01/24/20 06:40 Hgb 10.8 gm/dL (13.5-18.0) L 01/24/20 06:40 Hct 32.6 % (42.0-52.0) L 01/24/20 06:40 MCV 93.4 fl (78-100) 01/24/20 06:40 MCH 30.9 pg (27-31) 01/24/20 06:40 MCHC 33.1 g/dl (32-36) 01/24/20 06:40 RDW 15.2 % (11.5-14.0) H 01/24/20 06:40 Plt Count 57 K/mm3 (150-450) L 01/24/20 06:40 MPV 12.7 fl (8-11.3) H 01/24/20 06:40 Immature Gran % (Auto) 0.50 % (0.001-0.429) H 01/24/20 06:40 Immature Gran # (Auto) 0.09 K/mm3 (0.000-0.0310) H 01/24/20 06:40 Neutrophils % 83.9 % (42-75.0) H 01/24/20 06:40 Neutrophils % (Manual) 85 % (42-75) H 01/23/20 23:10 Band Neuts % (Manual) 2 % (0-2.0) 01/23/20 23:10 Lymphocytes % 6.9 % (20-51) L 01/24/20 06:40 Lymphocytes % (Manual) 6 % (20-51) L 01/23/20 23:10 Monocytes % 8.0 % (0.0-9) 01/24/20 06:40 Monocytes % (Manual) 4 % (0-9) 01/23/20 23:10 Eosinophils % 0.6 % (0.0-3.0) 01/24/20 06:40 Basophils % 0.1 % (0.0-1.0) 01/24/20 06:40 Nucleated RBC % 0.0 k/mm3 (0-1) 01/24/20 06:40 Immature Granulocytes 2 (0-1) H 01/23/20 23:10 Neutrophils # 14.4 K/mm3 (1.3-6.0) H 01/24/20 06:40 Neutrophils # (Manual) 15.6 K/mm3 (1.3-6.0) H 01/23/20 23:10 Lymphocytes # 1.18 k/mm3 (1.5-3.5) L 01/24/20 06:40 Lymphocytes # (Manual) 1.1 k/mm3 (1.5-3.5) L 01/23/20 23:10 Monocytes # 1.4 k/mm3 (0.0-1.0) H 01/24/20 06:40 Monocytes # (Manual) 0.7 k/mm3 (0.0-1.0) 01/23/20 23:10 Eosinophils # 0.1 k/mm3 (0.0-0.7) 01/24/20 06:40 Absolute Basophils 0.0 k/mm3 (0.0-0.1) 01/24/20 06:40 Atypic/Reactive Lymphs 1 % (0-2) 01/23/20 23:10 Platelet Estimate Decreased (NORMAL) L 01/23/20 23:10 PT 14.7 Seconds (9.1-10.7) H 01/23/20 23:00 INR (Anticoag Therapy) 1.51 INR (0.92-1.08) H 01/23/20 23:00 PTT ([facility]) 41.8 Seconds (24-32) H 01/23/20 23:00 Sodium 141 mmol/L (132-142) 01/24/20 06:40 Plasma Sodium 142 mmol/L (130-142) 01/24/20 06:40 Potassium 3.3 mmol/L (3.4-4.6) L 01/24/20 06:40 Chloride 107 mmol/L (97-106) H 01/24/20 06:40 Carbon Dioxide 24.7 mmol/L (24-32.6) 01/24/20 06:40 Anion Gap 12.6 mmol/L (6.8-13.8) 01/24/20 06:40 BUN 57 mg/dL (6-23) H 01/24/20 06:40 Creatinine 2.16 mg/dL (0.4-1.4) H 01/24/20 06:40 Est GFR (Non-Af Amer) 32 mL/min (60-130) L 01/24/20 06:40 BUN/Creatinine Ratio 26.4 (9.0-21.6) H 01/24/20 06:40 Random Glucose 187 mg/dL (70-110) H 01/24/20 06:40 Lactic Acid, Venous 2.3 mmol/L (0.4-2.0) H* 01/24/20 02:00 Calcium 8.3 mg/dL (7.9-10.9) 01/24/20 06:40 Calcium Adj for Albumin 9.1 mg/dL (8.4-10.2) 01/23/20 23:00 Total Bilirubin 2.8 mg/dL (0.0-1.1) H 01/23/20 23:00 AST 61 U/L (0-48) H 01/23/20 23:00 ALT 69 U/L (19-67) H 01/23/20 23:00 Alkaline Phosphatase 186 U/L (50-170) H 01/23/20 23:00 Troponin I 0.172 ng/mL (0.00-0.10) H* 01/24/20 08:47 C-Reactive Prot, Quant 22.5 mg/dL (0.0-0.9) H 01/23/20 23:00 B-Natriuretic Peptide 5884 pg/mL (5-650) H 01/23/20 23:00 Total Protein 6.5 gm/dL (6.2-8.2) 01/23/20 23:00 Albumin 2.8 gm/dl (3.4-5.0) L 01/23/20 23:00 Urine Color Dark yellow 01/23/20 23:55 Urine Appearance Slightly cloudy (CLEAR) 01/23/20 23:55 Urine pH 5.0 pH (5.0-7.0) 01/23/20 23:55 Ur Specific [place] 1.020 SP.GR. (1.005-1.030) 01/23/20 23:55 Urine Protein 15 mg/dL (NEGATIVE) H 01/23/20 23:55 Urine Glucose (UA) Negative mg/dL (NEGATIVE) 01/23/20 23:55 Urine Ketones 5 mg/dL (NEGATIVE) 01/23/20 23:55 Urine Blood 50 /ul (NEGATIVE) H 01/23/20 23:55 Urine Nitrate Negative (NEGATIVE) 01/23/20 23:55 Urine Bilirubin 1 mg/dl (NEGATIVE) H 01/23/20 23:55 Urine Ictotest Negative (NEGATIVE) 01/23/20 23:55 Prot Sulfosalicylic Acd Negative mg/dL (0) 01/23/20 23:55 Urine Urobilinogen Normal EU/dl (NORMAL) 01/23/20 23:55 Ur Leukocyte Esterase 25 /ul (NEGATIVE) H 01/23/20 23:55 Urine RBC 0-5 /hpf (0-5) 01/23/20 23:55 Urine WBC 0-5 /hpf (0-5) 01/23/20 23:55 Ur Epithelial Cells Trace /hpf (0-5) 01/23/20 23:55 Amorphous Sediment Moderate - 2+ (NONE-FEW) H 01/23/20 23:55 Urine Bacteria 1+ (NONE) H 01/23/20 23:55 Urine Culture Comments Culture to follow 01/23/20 23: SARS-CoV-2 (PCR) Not detected (ND) 01/23/20 23:00 Assessment/Plan - Assessment/Plan (1) Fever Assessment: The most likely source thus far are his foot ulcers. Will obtain an xray, and if it's suggestive of osteomyelitis, an MRI. He has a history of prostate cancer, and is undergoing workup for recurrence. If he does have cancer currently, that could also be a source of fever. He continues to have fevers despite rocephin, so will add linezolid. Will avoid vancomycin due to his reduced renal function. CXR not convincing for pneumonia, and he denies cough or chest pain. UA only showed 1+ bacteria, so UTI less likely, but urine culture pending. Blood cultures pending as well. Problem: Acute (2) Sepsis Assessment: There was some concern for sepsis initially with his lactate, WBC, and fever, but BP is not decreased, he is not tachycardic or tachypneic. Sepsis less likely. Lactate resolved without fluid bolus. Problem: Resolved (3) Chronic ulcer of left foot Assessment: He has been receiving care from Dr. Musa regarding these wounds. Dressings changed today, and will consult her. He's been receiving rocephin, but still spiked a fever today. Will add linezolid to cover MRSA. Problem: Acute Qualifiers: Non-pressure ulcer stage: unspecified non-pressure ulcer stage Qualified Code(s): L97.529 - Non-pressure chronic ulcer of other part of left foot with unspecified severity (4) Lactic acidosis Assessment: Initial level of 4.1, but this resolved in the ED after rocephin administration. Problem: Resolved (5) Elevated troponin I level Assessment: Initial troponin of 0.363 in the ED, which was the peak. Likely due to strain. EKG showed minimal ST depression, resolved on repeat. Problem: Resolved (6) Diabetes mellitus Assessment: glucose has been in the 100's. Will hold metformin, for GFR of only 32. Can resume if this recovers to greater than 45. Problem: Chronic Qualifiers: Diabetes mellitus type: type 2 Diabetes mellitus penitentiary insulin use: without termite exterminator use Diabetes mellitus complication status: with neurologic complications Diabetes mellitus complication detail: with polyneuropathy Qualified Code(s): E11.42 - Type 2 diabetes mellitus with diabetic polyneuropa thy (7) Diabetic neuropathy Problem: Chronic Qualifiers: Diabetes mellitus type: type 2 Diabetes mellitus complication detail: diabetic polyneuropathy Qualified Code(s): E11.42 - Type 2 diabetes mellitus with diabetic polyneuropathy (8) Paroxysmal A-fib Assessment: continue home metoprolol and pradaxa. Will need to watch for uncontrolled bleed. Problem: Chronic (9) RHODA on CPAP Problem: Chronic (10) Aortic valve stenosis Problem: Chronic Qualifiers: Cardiac valve disease etiology: nonrheumatic Qualified Code(s): I35.0 - Nonrheumatic aortic (valve) stenosis (11) Hypertension Assessment: BP has been fluctuating. Will restart home meds, but hold if BP less than 120/80. Problem: Chronic Qualifiers: Hypertension type: essential hypertension Qualified Code(s): I10 - Essential (primary) hypertension (12) History of prostate cancer Problem: Chronic (13) Elevated PSA Assessment: He has a history of prostate cancer, and his prostate was removed. He had a recent elevated PSA, and a CT scan of his abd/pel and bone scan were done on at [facility]. Will attempt to get those records. If he has recurrent cancer, that could also be a source of his fever. Problem: Acute
[2020-01-24] MEDS: PREGABALIN 50 MG CAPSULE PO SCH ×3 (12:06→21:27)
[2020-01-24] MEDS ORDERED: ACETAMINOPHEN 1,000 MG/100 ML BTL IV ONE (12:54)
[2020-01-24] MEDS ORDERED: amLODIPine BESYLATE 5 MG TABLET PO SCH (14:15)
[2020-01-24] MEDS: LINEZOLID 600 MG TABLET PO SCH (15:49)
[2020-01-24] MEDS: fentaNYL 12 MCG PATCH.TD72 TD SCH (15:49)
[2020-01-24] MEDS ORDERED: metFORMIN HCL 500 MG TABLET PO SCH (17:00)
[2020-01-24] MEDS: ACETAMINOPHEN 500 MG TABLET PO PRN (18:55)
[2020-01-24] MEDS ORDERED: NORMAL SALINE 1,000 ML IV ONE (19:01)
[2020-01-24] MEDS: POLYETHYLENE GLYCOL 3350 17 GM PACKET PO SCH (21:24)
[2020-01-24] MEDS: DABIGATRAN ETEXILATE MESYLATE 150 MG CAPSULE PO SCH (21:27)
[2020-01-24] MEDS: FLECAINIDE ACETATE 100 MG TABLET PO SCH ×2 (21:27→21:29)
[2020-01-25] MEDS: LINEZOLID 600 MG TABLET PO SCH ×2 (04:31→16:52)
[2020-01-25 06:40] LABS: Hematocrit 31.8 % (42.0-52.0); Hemoglobin 10.4 gm/dL (13.5-18.0); Mean Cell Volume 93.8 fl (78-100); Mean Corpuscular Hemoglobin 30.7 pg (27-31); Mean Corpuscular Hgb Conc 32.7 g/dl (32-36); Mean Platelet Volume 12.5 fl (8-11.3); Neutrophil # 16.4 K/mm3 (1.3-6.0); Neutrophil % 86.5 % (42-75.0); Red Blood Count 3.39 M/mm3 (4.7-6.0); Red Cell Distribution Width 15.5 % (11.5-14.0)
[2020-01-25 06:45] LABS: Platelet Count 47 K/mm3 (150-450)
[2020-01-25] MEDS: INSULIN REGULAR, HUMAN 100 UNITS/ML VIAL SC SCH ×4 (06:55→21:00)
[2020-01-25 07:45] LABS: Albumin * 2.3 gm/dl (3.4-5.0); Anion Gap 9.8 mmol/L (6.8-13.8); BUN/Creatinine Ratio 28.6 (9.0-21.6); Bilirubin, Total 1.6 mg/dL (0.0-1.1); Ca. Corrected For Albumin 9.4 mg/dL (8.4-10.2); Calcium * 8.4 mg/dL (7.9-10.9); Carbon Dioxide 28.4 mmol/L (24-32.6); Potassium 3.2 mmol/L (3.4-4.6); Total Protein 5.9 gm/dL (6.2-8.2)
[2020-01-25] MEDS ORDERED: ACETAMINOPHEN 650 MG SUPP.RECT RC PRN (08:30)
--- NOTE | 2020-01-25 08:40 | PN ---
Subjective - Date and Time Seen Date: 01/25/20 Time: 08:32 Subjective Narrative: Moe is awake alert oriented x3. He is shaking/chills in his chair. He does have low back pain. Objective - Review of Systems Generalized/Overall Review: Reports: Weakness, Chills, Fever EENTM: Denies: Blurred Vision Respiratory: Denies: Cough, Shortness of Breath, Orthopnea Cardiac: Denies: Chest Pain, Edema, Palpitations Abdominal: Reports: Nausea, Vomiting. Denies: Abdominal Pain Genitourinary Symptoms: Denies: Urgency, Frequency Musculoskeletal Complaints: Reports: Joint Pain, Back Pain Neurological: Denies: Headache Skin: Denies: Lesions, Rash Misc: All systems neg except as marked - Vitals Vitals: Last Vital Signs Temp 36.8 C 01/25/20 07:57 Pulse 87 01/25/20 07:57 Resp 20 01/25/20 07:57 BP 163/64 H 01/25/20 07:57 Pulse Ox 99 01/25/20 07:57 - Abnormal Lab Findings Abnormal Lab Findings: Abnormal Lab Results 01/24/20 01/24/20 01/24/20 Range/Units 08:47 13:04 18:42 WBC (4.0-10.5) K/mm3 RBC (4.7-6.0) M/mm3 Hgb (13.5-18.0) gm/dL Hct (42.0-52.0) % RDW (11.5-14.0) % Plt Count (150-450) K/mm3 MPV (8-11.3) fl Immature Gran % (Auto) (0.001-0.429) % Immature Gran # (Auto) (0.000-0.0310) K/mm3 Neutrophils % (42-75.0) % Lymphocytes % (20-51) % Neutrophils # (1.3-6.0) K/mm3 Lymphocytes # (1.5-3.5) k/mm3 Monocytes # (0.0-1.0) k/mm3 Potassium (3.4-4.6) mmol/L BUN (6-23) mg/dL Creatinine (0.4-1.4) mg/dL Est GFR (Non-Af Amer) (60-130) mL/min BUN/Creatinine Ratio (9.0-21.6) Random Glucose (70-110) mg/dL Total Bilirubin (0.0-1.1) mg/dL Troponin I 0.172 H* 0.110 H 0.206 H* (0.00-0.10) ng/mL Total Protein (6.2-8.2) gm/dL Albumin (3.4-5.0) gm/dl 01/24/20 01/25/20 01/25/20 Range/Units 21:50 06:30 06:30 WBC 19.0 H (4.0-10.5) K/mm3 RBC 3.39 L (4.7-6.0) M/mm3 Hgb 10.4 L (13.5-18.0) gm/dL Hct 31.8 L (42.0-52.0) % RDW 15.5 H (11.5-14.0) % Plt Count 47 L (150-450) K/mm3 MPV 12.5 H (8-11.3) fl Immature Gran % (Auto) 0.60 H (0.001-0.429) % Immature Gran # (Auto) 0.12 H (0.000-0.0310) K/mm3 Neutrophils % 86.5 H (42-75.0) % Lymphocytes % 5.7 L (20-51) % Neutrophils # 16.4 H (1.3-6.0) K/mm3 Lymphocytes # 1.09 L (1.5-3.5) k/mm3 Monocytes # 1.1 H (0.0-1.0) k/mm3 Potassium 3.2 L (3.4-4.6) mmol/L BUN 55 H (6-23) mg/dL Creatinine 1.92 H (0.4-1.4) mg/dL Est GFR (Non-Af Amer) 36 L (60-130) mL/min BUN/Creatinine Ratio 28.6 H (9.0-21.6) Random Glucose 138 H (70-110) mg/dL Total Bilirubin 1.6 H (0.0-1.1) mg/dL Troponin I 0.141 H* (0.00-0.10) ng/mL Total Protein 5.9 L (6.2-8.2) gm/dL Albumin 2.3 L (3.4-5.0) gm/dl - Exam Constitutional: Present: Alert, Oriented x3, Cooperative ENT Exam: Present: hearing grossly normal Neck: Present: supple. Absent: lymphadenopathy (R), lymphadenopathy (L) Respiratory: Present: decreased breath sounds, No rales, No wheezing Cardiovascular/Chest: Present: regular rate, rhythm, no JVD, no murmur Abdomen: Present: Normal bowel sounds, soft, nontender, nondistended Extremity: Present: no calf tenderness, other - Foot ulcer Assessment/Plan Plan Narrative: Moe was admitted for fever and possible pneumonia with sepsis. He was started on IV Rocephin and linezolid. Admitting impression by physician bone density technician was likely source was his foot ulcer and/or UTI. The patient said that he was seen on 01/18/2020 by his foot doctor and said that his wound was healing well. Possible sources will include UTI, possible recurrence of discitis L1-L2 and possible vegetation on his aortic valve replacement. We will get a lumbosacral x-ray, add ESR and CRP, and will do an echocardiogram. We will change his IV Rocephin to IV cefepime and continue with linezolid for now. Addendum: Lab called and said that he was growing gram-negative bacilli on his blood x 1 bottle and on his urine. - Problems/Diagnosis (1) Fever Problem: Acute Qualifiers: Fever type: unspecified Qualified Code(s): R50.9 - Fever, unspecified (2) UTI (urinary tract infection) Problem: Acute Qualifiers: Urinary tract infection type: site unspecified Hematuria presence: with hematuria Qualified Code(s): N39.0 - Urinary tract infection, site not specified; R31.9 - Hematuria, unspecified Narrative: lab called - growing Gram negative bacilli (3) Bacteremia Problem: Acute Narrative: lab called -Gram Negative bacilli- likely source UTI (4) Aortic valve stenosis Problem: Chronic Qualifiers: Cardiac valve disease etiology: nonrheumatic Qualified Code(s): I35.0 - Nonrheumatic aortic (valve) stenosis Narrative: s/p TAVR r/o vegetation (5) Chronic ulcer of left foot Problem: Chronic Qualifiers: Non-pressure ulcer stage: unspecified non-pressure ulcer stage Qualified Code(s): L97.529 - Non-pressure chronic ulcer of other part of left foot with unspecified severity (6) Elevated troponin I level Problem: Resolved (7) Lactic acidosis Problem: Resolved (8) Back pain Problem: Acute Qualifiers: Back pain location: back pain in unspecified location Chronicity: acute Back pain laterality: midline Qualified Code(s): M54.9 - Dorsalgia, unspecified (9) History of prostate cancer Problem: Chronic (10) Hyperlipidemia Problem: Chronic Qualifiers: Hyperlipidemia type: pure hypercholesterolemia Qualified Code(s): E78.00 - Pure hypercholesterolemia, unspecified (11) RHODA on CPAP Problem: Chronic (12) Paroxysmal A-fib Problem: Chronic
[2020-01-25] MEDS: ONDANSETRON HCL/PF 2 MG/ML VIAL IV PRN ×2 (08:47→16:52)
[2020-01-25] MEDS ORDERED: LOSARTAN POTASSIUM 50 MG TABLET PO SCH (09:00)
[2020-01-25] MEDS ORDERED: HYDROCHLOROTHIAZIDE 12.5 MG CAPSULE PO SCH (09:00)
[2020-01-25] MEDS: METOPROLOL SUCCINATE 50 MG TABLET.SA PO SCH (10:17)
[2020-01-25] MEDS: PREGABALIN 50 MG CAPSULE PO SCH ×4 (10:19→21:04)
[2020-01-25] MEDS: ASPIRIN 81 MG TABLET.DR PO SCH (10:20)
[2020-01-25] MEDS: DABIGATRAN ETEXILATE MESYLATE 150 MG CAPSULE PO SCH ×2 (10:20→21:03)
[2020-01-25] MEDS: FLECAINIDE ACETATE 100 MG TABLET PO SCH (10:21)
[2020-01-25] MEDS: CEFEPIME HCL 2 GM in DEXTROSE 5 % IN WATER 100 ML IV SCH ×4 (10:21→21:04)
[2020-01-25] MEDS: POLYETHYLENE GLYCOL 3350 17 GM PACKET PO SCH ×2 (10:21→20:07)
--- NOTE | 2020-01-25 13:51 | CONS ---
HPI - General Date of Service: 01/25/20 Source: patient Exam Limitations: no limitations - History of Present Illness Initial Comments: Patient is a 74 year old male, recently admitted to the hospital regarding fever and chills and suspicion of sepsis. He has longstanding ulcers to his feet, and follows closely with Dr. Musa. He was seen in her office last week. He states that the current ulcers have been present for almost 5 years. He shares that he will and return frequently. He states the most recent ulcers include the left third toe and the bottom of his foot. He is using Aquacel AG for treatment. He describes mild pain with manipulation of the wounds. His medical history is notable for atrial fibrillation, coronary artery disease, diabetes, hyperlipidemia, hypertension, neuropathy, prostate cancer and sleep apnea. Timing/Duration: constant Allergies/Adverse Reactions: Allergies Sulfa (Sulfonamide Antibiotics) [Sulfa(Sulfonamide Antibiotics)] Allergy (Severe, Verified 01/20/20 12:34) facial and tongue swelling tetracycline [Tetracycline] Allergy (Severe, Verified 01/20/20 12:34) facial and tongue swelling clindamycin Allergy (Intermediate, Verified 01/20/20 12:34) rash on genitals levofloxacin [From Levaquin] Adverse Reaction (Intermediate, Verified 01/20/20 12:34) severe rash seasonal allergies Adverse Reaction (Intermediate, Uncoded 01/20/20 12:34) rhinitis Home Medications: Home Medications Medication Instructions Recorded Last Taken Atorvastatin Calcium 20 mg PO DAILY 12/31/16 Unknown Irbesartan [Avapro] 300 mg PO DAILY 12/31/16 Unknown cyanocobalamin (vitamin B-12) 1,000 mcg PO DAILY 01/24/18 Unknown 1,000 mcg tablet OneTouch Delica Lancets 30 gauge See Dose Instructions .ROUTE 07/14/18 Unknown .MEDSUPPLY #200 ea NS dabigatran etexilate 150 mg capsule 150 mg PO BID 01/07/19 Unknown polyethylene glycol 3350 17 17 g PO BID 01/07/19 Unknown gram/dose oral powder pregabalin 100 mg capsule 100 mg PO QID 01/07/19 Unknown sennosides 8.6 mg tablet 8.6 mg PO BID 01/07/19 Unknown allopurinol 100 mg tablet 100 mg PO BID #180 tab 08/17/19 Unknown blood sugar diagnostic See Dose Instructions .ROUTE 09/14/19 Unknown .MEDSUPPLY #100 ea metformin 500 mg tablet 500 mg PO BID #180 tab 09/29/19 Unknown mometasone 0.1 % topical solution 1 applic TP BID ml 11/17/19 Unknown Aspirin [Aspirin EC] 81 mg PO DAILY 12/03/19 Unknown Ferrous Sulfate [High Potency Iron] 27 mg PO DAILY 12/03/19 Unknown Lactobacillus Rhamnosus GG 1 tab PO DAILY 12/03/19 Unknown [Culturelle] Levomefolate/B6/B12/Algal Oil 1 ea PO DAILY 12/03/19 Unknown [Metanx Capsule] Metoprolol Succinate [Toprol Xl] 50 mg PO DAILY 12/03/19 Unknown acetaminophen 500 mg tablet 500 mg PO Q6H PRN #0.1 tab 12/04/19 Unknown amlodipine 2.5 mg tablet 2.5 mg PO DAILY #0.1 tab 12/04/19 Unknown hydrochlorothiazide 12.5 mg tablet 12.5 mg PO DAILY #30 tab 12/17/19 Unknown fentanyl 12 mcg/hr transdermal 1 patch TRANSDERMAL Q72H #5 ea 01/13/20 Unknown patch Clotrimazole/Betamethasone Dip 1 applic TOPICAL PRN 01/24/20 Unknown [Lotrisone Cream] Pregabalin [Lyrica] 100 mg PO QID 01/24/20 Unknown Procedures Colonoscopy (03/14/01) ENDOSC POLYPECTOMY OF LG INTEST (01/09/10) Injection of anesthetic into spinal canal for analgesia (07/20/02) Injection of other agent into spinal canal (07/20/02) Injection of steroid (07/20/02) Inspection of Lower Intestinal Tract, Via Natural or Artificial Opening Endoscopic (05/18/15) Other lysis of peritoneal adhesions (01/10/00) Retrograde pyelogram (12/09/13) Medications - Medications Current Medications: Current Medications Acetaminophen (Tylenol) 500 mg PO Q6H PRN PRN Reason: fever or pain Stop: 02/23/20 14:08 Last Admin: 01/24/20 18:55 Dose: 500 mg Documented by: Acetaminophen (Tylenol Suppository) 650 mg RC Q6H PRN PRN Reason: Fever Stop: 02/24/20 08:31 Last Admin: 01/25/20 08:43 Dose: 650 mg Documented by: Amlodipine Besylate (Norvasc) 2.5 mg PO DAILY [facility] Stop: 02/23/20 14:16 Last Admin: 01/24/20 15:30 Dose: Not Given Documented by: Aspirin (Aspirin Enteric Coated) 81 mg PO DAILY [facility] Stop: 02/24/20 09:01 Last Admin: 01/25/20 10:20 Dose: 81 mg Documented by: Dabigatran (Pradaxa) 150 mg PO BID [facility] Stop: 02/23/20 21:01 Last Admin: 01/25/20 10:20 Dose: 150 mg Documented by: Fentanyl (Duragesic) 12 mcg TD Q72H [facility] Stop: 02/23/20 14:16 Last Admin: 01/24/20 15:49 Dose: 12 mcg Documented by: Sodium Chloride (Sodium Chloride 0.9%) 1,000 mls @ 30 mls/hr IV .Q24H PRN PRN Reason: HYDRATION Stop: 02/23/20 03:01 Last Admin: 01/24/20 20:35 Dose: 30 mls/hr Documented by: Cefepime HCl 2 gm/ Dextrose/ (Water) 100 mls @ 200 mls/hr IV Q12H [facility] Stop: 02/24/20 09:01 Last Infusion: 01/25/20 10:56 Dose: Infused Documented by: Insulin Human Regular (Humulin R) 0 units SC [facility]; Protocol Stop: 02/23/20 07:01 Last Admin: 01/25/20 13:41 Dose: Not Given Documented by: Linezolid (Zyvox) 600 mg PO Q12H [facility] Stop: 02/23/20 16:01 Last Admin: 01/25/20 04:31 Dose: Not Given Documented by: Losartan Potassium (Cozaar) 100 mg PO DAILY [facility] Stop: 02/24/20 09:01 Last Admin: 01/25/20 10:16 Dose: Not Given Documented by: Metoprolol Succinate (Toprol Xl) 50 mg PO DAILY [facility] Stop: 02/24/20 09:01 Last Admin: 01/25/20 10:17 Dose: Not Given Documented by: Ondansetron HCl (Zofran) 4 mg IV Q6H PRN PRN Reason: Nausea And Vomiting Stop: 02/24/20 08:26 Last Admin: 01/25/20 08:47 Dose: 4 mg Documented by: Polyethylene Glycol (Miralax) 17 gm PO BID [facility] Stop: 02/23/20 21:01 Last Admin: 01/25/20 10:21 Dose: 17 gm Documented by: Pregabalin (Lyrica) 100 mg PO QID [facility] Stop: 02/23/20 13:01 Last Admin: 01/25/20 10:19 Dose: 100 mg Documented by: Review of Systems - Review of Systems Generalized/Overall Review: Present: Chills, Fever EENTM: Absent: Nose Congestion Respiratory: Absent: Shortness of Breath Cardiac: Present: Edema Abdominal: Present: Nausea. Absent: Vomiting Musculoskeletal: Present: Joint Pain Neurological: Present: Numbness Skin: Present: Lesions Physical Examination - Exam Vital Signs: Vital Signs - Last Taken Temp 37.0 C 01/25/20 12:16 Pulse 65 01/25/20 12:16 Resp 22 H 01/25/20 12:16 BP 100/53 01/25/20 12:16 Pulse Ox 100 01/25/20 12:16 O2 Oxygen Delivery Method Room Air Constitutional: Present: Alert, No distress ENT Exam: Present: hearing grossly normal Skin Exam: Present: warm/dry, other - There is an area on the distal aspect of the left third toe measuring approximately 0.3 cm in circumference. This is superficial. Minimal drainage. Mild erythema. The area on the left plantar foot measures 2.0 x 1.0 x 0.1. Large amount of granulation tissue. Minimal maceration. No erythema. Eye contact: Present: cooperative, good eye contact, normal speech - Results and Findings: Lab/Microbiology results last 24 hrs: Abnormal/Pending Laboratory Last 24 HRS 01/25/20 01/25/20 01/25/20 06:30 06:30 06:30 WBC RBC Hgb Hct RDW Plt Count MPV Immature Gran % (Auto) Immature Gran # (Auto) Neutrophils % Lymphocytes % Neutrophils # Lymphocytes # Monocytes # ESR 63 H Potassium 3.2 L BUN 55 H Creatinine 1.92 H Est GFR (Non-Af Amer) 36 L BUN/Creatinine Ratio 28.6 H Random Glucose 138 H Total Bilirubin 1.6 H Troponin I C-Reactive Prot, Quant 27.0 H Total Protein 5.9 L Albumin 2.3 L 01/25/20 01/24/20 01/24/20 06:30 21:50 18:42 WBC 19.0 H RBC 3.39 L Hgb 10.4 L Hct 31.8 L RDW 15.5 H Plt Count 47 L MPV 12.5 H Immature Gran % (Auto) 0.60 H Immature Gran # (Auto) 0.12 H Neutrophils % 86.5 H Lymphocytes % 5.7 L Neutrophils # 16.4 H Lymphocytes # 1.09 L Monocytes # 1.1 H ESR Potassium BUN Creatinine Est GFR (Non-Af Amer) BUN/Creatinine Ratio Random Glucose Total Bilirubin Troponin I 0.141 H* 0.206 H* C-Reactive Prot, Quant Total Protein Albumin Culture 01/23/20 23:00 Blood Culture - Preliminary Blood Ruling Out Pathogen 01/24/20 23:55 Urine Culture - Preliminary Urine,Catheterized Gram Negative Bacilli 01/23/20 23:10 Blood Culture - Preliminary Blood NO GROWTH 24 HOURS - Assessments/Findings (1) Chronic ulcer of left foot Diagnosis(s): The ulcers appear stable. Recommend continuing with the Radio Re[employer] AG. This will be changed daily and as needed, per drainage. Wash the areas with soap and water at dressing changes. He will continue his care with Dr. Musa as scheduled. Problem: Chronic Qualifiers: Non-pressure ulcer stage: unspecified non-pressure ulcer stage Qualified Code(s): L97.529 - Non-pressure chronic ulcer of other part of left foot with unspecified severity
[2020-01-26] MEDS: LINEZOLID 600 MG TABLET PO SCH ×2 (03:06→16:30)
[2020-01-26] MEDS: INSULIN REGULAR, HUMAN 100 UNITS/ML VIAL SC SCH ×4 (06:37→20:16)
--- NOTE | 2020-01-26 08:04 | PN ---
Subjective - Date and Time Seen Date: 01/26/20 Time: 07:55 Subjective Narrative: Patient is AAO x 3. Afebrile since his last fever yesrterday morning. Dicussed with patienthis Echo and LS xray. C/O weakness. Objective - Review of Systems Generalized/Overall Review: Reports: Weakness. Denies: Chills, Fever EENTM: Denies: Blurred Vision Respiratory: Denies: Cough, Shortness of Breath, Orthopnea Cardiac: Denies: Chest Pain, Edema, Palpitations Abdominal: Denies: Nausea, Vomiting Genitourinary Symptoms: Denies: Urgency, Frequency Musculoskeletal Complaints: Reports: Joint Pain, Back Pain Neurological: Denies: Headache Skin: Denies: Lesions, Rash Misc: All systems neg except as marked - Vitals Vitals: Last Vital Signs Temp 36.4 C 01/26/20 06:33 Pulse 62 01/26/20 06:33 Resp 18 01/26/20 06:33 BP 114/56 01/26/20 06:33 Pulse Ox 97 01/26/20 06:33 - Abnormal Lab Findings Abnormal Lab Findings: Abnormal Lab Results 01/25/20 01/25/20 Range/Units 06:30 06:30 ESR 63 H (0-10) mm/hr C-Reactive Prot, Quant 27.0 H (0.0-0.9) mg/dL - Exam Constitutional: Present: Alert, Oriented x3, Cooperative, Obese ENT Exam: Present: hearing grossly normal Neck: Present: supple. Absent: lymphadenopathy (R), lymphadenopathy (L) Respiratory: Present: decreased breath sounds, No rales, No wheezing Cardiovascular/Chest: Present: regular rate, rhythm, no JVD, systolic murmur Abdomen: Present: Normal bowel sounds, soft, nontender, nondistended Extremity: Present: no calf tenderness, pedal edema Assessment/Plan Plan Narrative: Moe was admitted for fever/chills with leukocytosis. BC and UC is growing gram negative bacilli. Echo showed mild LVH, EF 61%, indeterminate diastolic dysfunction, echodensities on MVL, likely calcification of MV cords or chordae tendinae, no clear vegetation, bioprosthetic valve sitting well, MPG7, PPG 13. LS shows compression deformity of L1 cannot rule out discitis. Patient cannot have MRI due to pacemaker. He had a CT scan of his abdomen and pelvis in [facility] last and is lumbar area was read as degenerative changes. We will try to get the results of his bone scan. In [facility] hospitals [facility] clinics will try to get in touch [facility] his thoracovascular surgeon/cardiology and I.D. Addendum: Lab called and said that he is growing Proteus mirabilis. If his blood culture is showing also Proteus mirabilis we will change his antibiotics to IV Rocephin and discontinue his linezolid. - Problems/Diagnosis (1) Fever Problem: Acute Qualifiers: Fever type: unspecified Qualified Code(s): R50.9 - Fever, unspecified (2) UTI (urinary tract infection) Problem: Acute Qualifiers: Urinary tract infection type: site unspecified Hematuria presence: with hematuria Qualified Code(s): N39.0 - Urinary tract infection, site not specified; R31.9 - Hematuria, unspecified (3) Bacteremia Problem: Acute (4) Aortic valve stenosis Problem: Chronic Qualifiers: Cardiac valve disease etiology: nonrheumatic Qualified Code(s): I35.0 - Nonrheumatic aortic (valve) stenosis (5) Chronic ulcer of left foot Problem: Chronic Qualifiers: Non-pressure ulcer stage: unspecified non-pressure ulcer stage Qualified Code(s): L97.529 - Non-pressure chronic ulcer of other part of left foot with unspecified severity (6) Elevated troponin I level Problem: Resolved (7) Lactic acidosis Problem: Resolved (8) Back pain Problem: Acute Qualifiers: Back pain location: back pain in unspecified location Chronicity: acute Back pain laterality: midline Qualified Code(s): M54.9 - Dorsalgia, unspecified (9) History of prostate cancer Problem: Chronic (10) Hyperlipidemia Problem: Chronic Qualifiers: Hyperlipidemia type: pure hypercholesterolemia Qualified Code(s): E78.00 - Pure hypercholesterolemia, unspecified (11) RHODA on CPAP Problem: Chronic (12) Paroxysmal A-fib Problem: Chronic
[2020-01-26] MEDS: POLYETHYLENE GLYCOL 3350 17 GM PACKET PO SCH ×2 (08:08→20:11)
[2020-01-26] MEDS: DABIGATRAN ETEXILATE MESYLATE 150 MG CAPSULE PO SCH ×2 (08:08→20:10)
[2020-01-26] MEDS: ASPIRIN 81 MG TABLET.DR PO SCH (08:08)
[2020-01-26] MEDS: METOPROLOL SUCCINATE 50 MG TABLET.SA PO SCH (08:10)
[2020-01-26] MEDS: PREGABALIN 50 MG CAPSULE PO SCH ×4 (08:12→20:10)
[2020-01-26] MEDS: CEFEPIME HCL 2 GM in DEXTROSE 5 % IN WATER 100 ML IV SCH ×4 (08:14→20:10)
[2020-01-26 09:24] LABS: Hematocrit 30.2 % (42.0-52.0); Mean Cell Volume 93.2 fl (78-100); Mean Corpuscular Hemoglobin 30.9 pg (27-31); Mean Corpuscular Hgb Conc 33.1 g/dl (32-36); Mean Platelet Volume 13.6 fl (8-11.3); Neutrophil # 11.9 K/mm3 (1.3-6.0); Red Blood Count 3.24 M/mm3 (4.7-6.0); Red Cell Distribution Width 15.4 % (11.5-14.0)
[2020-01-26 09:25] LABS: Platelet Count 40 K/mm3 (150-450)
[2020-01-26 09:34] LABS: Anion Gap 11.5 mmol/L (6.8-13.8); BUN/Creatinine Ratio 28.6 (9.0-21.6); Calcium * 8.3 mg/dL (7.9-10.9); Carbon Dioxide 24.9 mmol/L (24-32.6); Estimated Creat Clear 40.6; Potassium 3.4 mmol/L (3.4-4.6)
[2020-01-26] MEDS: ACETAMINOPHEN 500 MG TABLET PO PRN (15:09)
[2020-01-26] MEDS: NORMAL SALINE 1,000 ML IV PRN (16:36)
[2020-01-27] MEDS: LINEZOLID 600 MG TABLET PO SCH (04:33)
[2020-01-27] MEDS: INSULIN REGULAR, HUMAN 100 UNITS/ML VIAL SC SCH ×4 (07:12→21:12)
[2020-01-27 07:45] LABS: Hemoglobin 9.8 gm/dL (13.5-18.0); Mean Cell Volume 92.6 fl (78-100); Mean Corpuscular Hemoglobin 30.2 pg (27-31); Mean Corpuscular Hgb Conc 32.7 g/dl (32-36); Mean Platelet Volume 14.1 fl (8-11.3); Neutrophil # 10.6 K/mm3 (1.3-6.0); Neutrophil % 82.2 % (42-75.0); Red Blood Count 3.24 M/mm3 (4.7-6.0); Red Cell Distribution Width 15.6 % (11.5-14.0); White Blood Count 12.8 K/mm3 (4.0-10.5)
[2020-01-27 07:51] LABS: Anion Gap 13.2 mmol/L (6.8-13.8); BUN/Creatinine Ratio 25.9 (9.0-21.6); Calcium * 8.4 mg/dL (7.9-10.9); Carbon Dioxide 23.6 mmol/L (24-32.6); Estimated Creat Clear 40.6; Potassium 3.8 mmol/L (3.4-4.6)
[2020-01-27 07:57] LABS: Platelet Count 43 K/mm3 (150-450)
[2020-01-27] MEDS: POLYETHYLENE GLYCOL 3350 17 GM PACKET PO SCH ×2 (08:09→21:16)
[2020-01-27] MEDS: DABIGATRAN ETEXILATE MESYLATE 150 MG CAPSULE PO SCH ×2 (08:09→21:15)
[2020-01-27] MEDS: ASPIRIN 81 MG TABLET.DR PO SCH (08:09)
[2020-01-27] MEDS: METOPROLOL SUCCINATE 50 MG TABLET.SA PO SCH (08:09)
[2020-01-27] MEDS: PREGABALIN 50 MG CAPSULE PO SCH ×4 (08:11→21:13)
[2020-01-27] MEDS: CEFEPIME HCL 2 GM in DEXTROSE 5 % IN WATER 100 ML IV SCH ×4 (08:15→21:18)
--- NOTE | 2020-01-27 09:10 | PN ---
Subjective - Date and Time Seen Date: 01/27/20 Time: 09:10 Subjective Narrative: CLARIBEL x3. Afebrile for 48 hours. Objective - Vitals Vitals: Last Vital Signs Temp 36.5 C 01/27/20 06:48 Pulse 61 01/27/20 08:09 Resp 16 01/27/20 06:48 BP 111/56 01/27/20 08:09 Pulse Ox 100 01/27/20 06:48 - Abnormal Lab Findings Abnormal Lab Findings: Abnormal Lab Results 01/26/20 01/26/20 01/27/20 Range/Units 08:56 08:56 06:57 WBC 14.0 H D 12.8 H (4.0-10.5) K/mm3 RBC 3.24 L 3.24 L (4.7-6.0) M/mm3 Hgb 10.0 L 9.8 L (13.5-18.0) gm/dL Hct 30.2 L 30.0 L (42.0-52.0) % RDW 15.4 H 15.6 H (11.5-14.0) % Plt Count 40 L 43 L (150-450) K/mm3 MPV 13.6 H 14.1 H (8-11.3) fl Immature Gran % (Auto) 0.90 H 1.20 H (0.001-0.429) % Immature Gran # (Auto) 0.12 H 0.15 H (0.000-0.0310) K/mm3 Neutrophils % 85.0 H 82.2 H (42-75.0) % Lymphocytes % 6.4 L 7.8 L (20-51) % Neutrophils # 11.9 H 10.6 H (1.3-6.0) K/mm3 Lymphocytes # 0.89 L 1.00 L (1.5-3.5) k/mm3 Carbon Dioxide (24-32.6) mmol/L BUN 53 H (6-23) mg/dL Creatinine 1.85 H (0.4-1.4) mg/dL Est GFR (Non-Af Amer) 38 L (60-130) mL/min BUN/Creatinine Ratio 28.6 H (9.0-21.6) Random Glucose 180 H D (70-110) mg/dL 01/27/20 Range/Units 06:57 WBC (4.0-10.5) K/mm3 RBC (4.7-6.0) M/mm3 Hgb (13.5-18.0) gm/dL Hct (42.0-52.0) % RDW (11.5-14.0) % Plt Count (150-450) K/mm3 MPV (8-11.3) fl Immature Gran % (Auto) (0.001-0.429) % Immature Gran # (Auto) (0.000-0.0310) K/mm3 Neutrophils % (42-75.0) % Lymphocytes % (20-51) % Neutrophils # (1.3-6.0) K/mm3 Lymphocytes # (1.5-3.5) k/mm3 Carbon Dioxide 23.6 L (24-32.6) mmol/L BUN 48 H (6-23) mg/dL Creatinine 1.85 H (0.4-1.4) mg/dL Est GFR (Non-Af Amer) 38 L (60-130) mL/min BUN/Creatinine Ratio 25.9 H (9.0-21.6) Random Glucose 116 H D (70-110) mg/dL Assessment/Plan Plan Narrative: Moe was admitted for fever/ possible pneumonia. Official reading of the CXR showed no acute caediopulmonary fondings except for cardiomegaly and chronic changes of scarring. I don't think he has pneumonia but has UTI as source of his bacteremia as it also grew Proteus. . Will do Renal US to r/o any complicated UTI like abscess or pyelonephritis. His BC also grew Proteus Mirabilis in his blood . 2nd bottle is also growing Gram negative bacilli now. Will likely change his antibiotics to Rocephin or even change to oral antibiotics if he continues to be afebrile or WBC continues to go down to normal after talking to his I.D. - Problems/Diagnosis (1) Fever Problem: Acute Qualifiers: Fever type: unspecified Qualified Code(s): R50.9 - Fever, unspecified (2) UTI (urinary tract infection) Problem: Acute Qualifiers: Urinary tract infection type: site unspecified Hematuria presence: with hematuria Qualified Code(s): N39.0 - Urinary tract infection, site not specified; R31.9 - Hematuria, unspecified (3) Bacteremia Problem: Acute (4) Aortic valve stenosis Problem: Chronic Qualifiers: Cardiac valve disease etiology: nonrheumatic Qualified Code(s): I35.0 - Nonrheumatic aortic (valve) stenosis (5) Chronic ulcer of left foot Problem: Chronic Qualifiers: Non-pressure ulcer stage: unspecified non-pressure ulcer stage Qualified Code(s): L97.529 - Non-pressure chronic ulcer of other part of left foot with unspecified severity (6) Elevated troponin I level Problem: Resolved (7) Lactic acidosis Problem: Resolved (8) Back pain Problem: Acute Qualifiers: Back pain location: back pain in unspecified location Chronicity: acute Back pain laterality: midline Qualified Code(s): M54.9 - Dorsalgia, unspecified (9) History of prostate cancer Problem: Chronic (10) Hyperlipidemia Problem: Chronic Qualifiers: Hyperlipidemia type: pure hypercholesterolemia Qualified Code(s): E78.00 - Pure hypercholesterolemia, unspecified (11) RHODA on CPAP Problem: Chronic (12) Paroxysmal A-fib Problem: Chronic
[2020-01-27] MEDS: fentaNYL 12 MCG PATCH.TD72 TD SCH (15:20)
--- NOTE | 2020-01-27 16:39 | PN ---
Progess Note - Interim Date: 01/27/20 Time: 16:33 Narrative: 01/27/20 16:33 Discussed case with I.DElizabeth doctor- Dr. Crenshaw- [facility]- he recommends IV rocephin Q Daily for 9 more days for a total of 14 days. Will consult anesthesia for PICC line. Patient is agreeable to plan of care.
[2020-01-27] MEDS ORDERED: FUROSEMIDE 10 MG/ML VIAL IV ONE (18:31)
[2020-01-27] MEDS: ROSUVASTATIN CALCIUM 10 MG TABLET PO SCH (21:13)
[2020-01-27] MEDS: ALLOPURINOL 100 MG TABLET PO SCH (21:16)
[2020-01-28 07:11] LABS: Hematocrit 29.6 % (42.0-52.0); Hemoglobin 9.7 gm/dL (13.5-18.0); Mean Cell Volume 91.9 fl (78-100); Mean Corpuscular Hemoglobin 30.1 pg (27-31); Mean Corpuscular Hgb Conc 32.8 g/dl (32-36); Mean Platelet Volume 12.8 fl (8-11.3); Neutrophil # 10.6 K/mm3 (1.3-6.0); Neutrophil % 83.9 % (42-75.0); Red Blood Count 3.22 M/mm3 (4.7-6.0); Red Cell Distribution Width 15.3 % (11.5-14.0); White Blood Count 12.6 K/mm3 (4.0-10.5)
[2020-01-28] MEDS: NORMAL SALINE 1,000 ML IV PRN (07:15)
[2020-01-28 07:18] LABS: Platelet Count 63 K/mm3 (150-450)
[2020-01-28 07:20] LABS: Anion Gap 11.8 mmol/L (6.8-13.8); BUN/Creatinine Ratio 23.8 (9.0-21.6); Calcium * 8.2 mg/dL (7.9-10.9); Carbon Dioxide 25.2 mmol/L (24-32.6); Estimated Creat Clear 45.8
[2020-01-28] MEDS: INSULIN REGULAR, HUMAN 100 UNITS/ML VIAL SC SCH ×4 (07:32→21:13)
[2020-01-28] MEDS: POTASSIUM CHLORIDE 10 MEQ TABLET.SA PO SCH (08:32)
[2020-01-28] MEDS: LACTOBACILLUS ACIDOPHILUS 1 EACH CAPSULE PO SCH (08:32)
[2020-01-28] MEDS: ASPIRIN 81 MG TABLET.DR PO SCH (08:32)
[2020-01-28] MEDS: FUROSEMIDE 40 MG TABLET PO SCH (08:33)
[2020-01-28] MEDS: ALLOPURINOL 100 MG TABLET PO SCH ×2 (08:33→21:11)
[2020-01-28] MEDS: POLYETHYLENE GLYCOL 3350 17 GM PACKET PO SCH ×2 (08:33→21:13)
[2020-01-28] MEDS: METOPROLOL SUCCINATE 50 MG TABLET.SA PO SCH (08:33)
[2020-01-28] MEDS: DABIGATRAN ETEXILATE MESYLATE 150 MG CAPSULE PO SCH (08:36)
[2020-01-28] MEDS: PREGABALIN 50 MG CAPSULE PO SCH ×4 (08:36→21:12)
--- NOTE | 2020-01-28 09:15 | PN ---
Subjective - Date and Time Seen Date: 01/28/20 Time: 09:15 Subjective Narrative: Patient is afebrile for 72 hours now. Discussed case with his I.D. doctor. patient knows of plan. Objective - Review of Systems Generalized/Overall Review: Reports: Weakness. Denies: Chills, Fever EENTM: Denies: Blurred Vision Respiratory: Denies: Cough, Shortness of Breath, Orthopnea Cardiac: Denies: Chest Pain, Edema, Palpitations Abdominal: Denies: Nausea, Vomiting, Abdominal Pain Genitourinary Symptoms: Denies: Urgency, Frequency Musculoskeletal Complaints: Reports: Joint Pain, Back Pain Neurological: Denies: Headache Skin: Denies: Lesions, Rash - Vitals Vitals: Last Vital Signs Temp 36.6 C 01/28/20 06:45 Pulse 60 01/28/20 08:33 Resp 12 01/28/20 06:45 BP 112/59 01/28/20 08:33 Pulse Ox 100 01/28/20 06:45 - Abnormal Lab Findings Abnormal Lab Findings: Abnormal Lab Results 01/28/20 01/28/20 Range/Units 06:50 06:50 WBC 12.6 H (4.0-10.5) K/mm3 RBC 3.22 L (4.7-6.0) M/mm3 Hgb 9.7 L (13.5-18.0) gm/dL Hct 29.6 L (42.0-52.0) % RDW 15.3 H (11.5-14.0) % Plt Count 63 L (150-450) K/mm3 MPV 12.8 H (8-11.3) fl Immature Gran % (Auto) 1.60 H (0.001-0.429) % Immature Gran # (Auto) 0.20 H (0.000-0.0310) K/mm3 Neutrophils % 83.9 H (42-75.0) % Lymphocytes % 7.6 L (20-51) % Neutrophils # 10.6 H (1.3-6.0) K/mm3 Lymphocytes # 0.96 L (1.5-3.5) k/mm3 BUN 39 H (6-23) mg/dL Creatinine 1.64 H (0.4-1.4) mg/dL Est GFR (Non-Af Amer) 44 L (60-130) mL/min BUN/Creatinine Ratio 23.8 H (9.0-21.6) - Exam Constitutional: Present: Alert, Oriented x3, Cooperative, Obese ENT Exam: Present: hearing grossly normal Neck: Present: supple. Absent: lymphadenopathy (R), lymphadenopathy (L) Respiratory: Present: decreased breath sounds, No rales, No wheezing Cardiovascular/Chest: Present: regular rate, rhythm, no JVD, systolic murmur Abdomen: Present: Normal bowel sounds, soft, nontender, obese Extremity: Present: no calf tenderness, lower extremity edema Assessment/Plan Plan Narrative: Moe has been afebrile for the last 72 hours. His WBC count continues to trend down although slow. I did discuss with his infectious disease doctor who treated him for these discitis in the past and he agrees that the source of his bacteremia is his urinary tract infection. He recommends doing a PICC line and continuing antibiotics for another 9 days to complete a total of 14 days. Anesthesia came in this morning and would like to have his anticoagulant stopped for this 24 hours before doing the PICC line. Patient is aware of the plan and is for possible discharge tomorrow after placement of PICC line with IV Rocephin once a day possibly in the [facility]. - Problems/Diagnosis (1) Fever Problem: Resolved Qualifiers: Fever type: unspecified Qualified Code(s): R50.9 - Fever, unspecified (2) UTI (urinary tract infection) Problem: Acute Qualifiers: Urinary tract infection type: site unspecified Hematuria presence: with hematuria Qualified Code(s): N39.0 - Urinary tract infection, site not specified; R31.9 - Hematuria, unspecified (3) Bacteremia Problem: Acute (4) Aortic valve stenosis Problem: Chronic Qualifiers: Cardiac valve disease etiology: nonrheumatic Qualified Code(s): I35.0 - Nonrheumatic aortic (valve) stenosis (5) Chronic ulcer of left foot Problem: Chronic Qualifiers: Non-pressure ulcer stage: unspecified non-pressure ulcer stage Qualified Code(s): L97.529 - Non-pressure chronic ulcer of other part of left foot with unspecified severity (6) Elevated troponin I level Problem: Resolved (7) Lactic acidosis Problem: Resolved (8) Back pain Problem: Acute Qualifiers: Back pain location: back pain in unspecified location Chronicity: acute Back pain laterality: midline Qualified Code(s): M54.9 - Dorsalgia, unspecified (9) History of prostate cancer Problem: Chronic (10) Hyperlipidemia Problem: Chronic Qualifiers: Hyperlipidemia type: pure hypercholesterolemia Qualified Code(s): E78.00 - Pure hypercholesterolemia, unspecified (11) RHODA on CPAP Problem: Chronic (12) Paroxysmal A-fib Problem: Chronic
[2020-01-28] MEDS: CEFEPIME HCL 2 GM in DEXTROSE 5 % IN WATER 100 ML IV SCH ×4 (09:32→21:12)
[2020-01-28] MEDS: FAMOTIDINE 20 MG TABLET PO SCH ×2 (09:32→21:12)
[2020-01-28] MEDS ORDERED: DOCUSATE SODIUM 100 MG CAPSULE ONE (17:27)
[2020-01-28] MEDS: DOCUSATE SODIUM 100 MG CAPSULE PO SCH ×2 (17:28→21:03)
[2020-01-28] MEDS: ROSUVASTATIN CALCIUM 10 MG TABLET PO SCH (21:12)
--- NOTE | 2020-01-29 08:40 | DS ---
(1) Fever Problem: Resolved Qualifiers: Fever type: unspecified Qualified Code(s): R50.9 - Fever, unspecified (2) UTI (urinary tract infection) Problem: Acute Qualifiers: Urinary tract infection type: site unspecified Hematuria presence: with hematuria Qualified Code(s): N39.0 - Urinary tract infection, site not specified; R31.9 - Hematuria, unspecified (3) Bacteremia Problem: Acute (4) Aortic valve stenosis Problem: Chronic Qualifiers: Cardiac valve disease etiology: nonrheumatic Qualified Code(s): I35.0 - Nonrheumatic aortic (valve) stenosis (5) Chronic ulcer of left foot Problem: Chronic Qualifiers: Non-pressure ulcer stage: unspecified non-pressure ulcer stage Qualified Code(s): L97.529 - Non-pressure chronic ulcer of other part of left foot with unspecified severity (6) Elevated troponin I level Problem: Resolved (7) Lactic acidosis Problem: Resolved (8) Back pain Problem: Chronic Qualifiers: Back pain location: back pain in unspecified location Chronicity: acute Back pain laterality: midline Qualified Code(s): M54.9 - Dorsalgia, unspecified (9) History of prostate cancer Problem: Chronic (10) Hyperlipidemia Problem: Chronic Qualifiers: Hyperlipidemia type: pure hypercholesterolemia Qualified Code(s): E78.00 - Pure hypercholesterolemia, unspecified (11) RHODA on CPAP Problem: Chronic (12) Paroxysmal A-fib Problem: Chronic (13) Sepsis Diagnosis(s): Ruled out Problem: Resolved Qualifiers: Sepsis acute organ dysfunction status: with acute organ dysfunction Severe sepsis acute organ dysfunction type: acute renal failure Acute renal failure type: unspecified Severe sepsis shock status: without septic shock Date of Discharge:: 01/29/20 Hospital Course: Moe Gutierrez is 74 year old white male with past medical history of aortic stenosis status post TAVR, coronary artery disease, status post pacemaker, previous CVA, and two skin ulcers on his left foot, type 2 diabetes, RHODA on CPAP, previous prostate cancer, diabetic neuropathy who was admitted on 01/24/2020 for fever/shakes and chills. He had a CAT scan and a bone scan on at [place] [facility] to investigate for potential recurrent prostate cancer. His temperature when he got home on was 100.3, and he attributed it to his testing. Temp was okay on Saturday, but yesterday he slept all day and his insisted he come to the hospital. He has a little shortness of breath and some edema. Denies cough. Denies urinary symptoms. No diarrhea. He does have a couple of foot ulcers on his left foot, followed by podiatry. He has not had recent medication changes. In the ED, there was suspicion for sepsis because he was febrile with a lactate of 4.1, elevated WPC of 18.4, tachypnea. However, his BP was not decreased, he was not tachycardic. There was some concern for pulmonary edema on his CXR, so he was not give a fluid bolus, and his lactate resolved. He was given a dose of 20 mg IV lasix. He did not require supplemental oxygen. He was given rocephin for the possible sepsis and fever. Urine was positive for leukocyte esterase, but only 1+ bacteria. Troponin was elevated at 0.363 on initial check, and has trended down from there. EKG in the ED showed mild possible ST depression, but he has a pacemaker. These changes not present on repeat EKG. He continue to have fevers/shakes/chill till the and his IV rocephin was changed to Cefepime. We did an Echocardiogram as he had a recent TAVR and it did not show clear vegetation. His LS xray showed compression deformity of LI but he had a CTS of his abdomen/pelvis, the day his s/sx started and it did not show acute chages of lumbar spine just degenerative changes. His UCS and BC were growing gram negative bacilli ( rods). It grew proteus Mirabilis. He has been afebrile now for 4 days. I did talked to the I.D. specialist from [facility], Dr. Crenshaw, and he believes the source of infection is his UTI and not recurrence of his prior discitis . He recommended PICC line and IV antibotics for 9 more days to complete a total of 14 days. Picc line was attempted but w/o success. He has a pacemaker recently placed. We will just give him IV rocephin as it it once a day thru the annex via his peripheral line and change IV site q 3 days. Procedures Performed: see notes below - PICC line insertion ( failed) Results and Findings: Lab Pending Results 01/23/20 23:00: Sodium 138, Plasma Sodium 139, Potassium 3.4, Chloride 105, Carbon Dioxide 21.7 L, Anion Gap 14.7 H, BUN 53 H D, Creatinine 2.40 H D, Est GFR (Non-Af Amer) 28 L D, BUN/Creatinine Ratio 22.1 H, Random Glucose 177 H, Calcium 8.5, Calcium Adj for Albumin 9.1, Total Bilirubin 2.8 H, AST 61 H, ALT 69 H, Alkaline Phosphatase 186 H, Troponin I 0.363 H*, C-Reactive Prot, Quant 22.5 H, B-Natriuretic Peptide 5884 H, Total Protein 6.5, Albumin 2.8 L 01/23/20 23:00: Lactic Acid, Venous 4.1 H* 01/23/20 23:00: SARS-CoV-2 (PCR) Not detected 01/23/20 23:00: PT 14.7 H, INR (Anticoag Therapy) 1.51 H, PTT ([place]) 41.8 H 01/23/20 23:10: WBC 18.4 H, RBC 3.95 L, Hgb 12.0 L, Hct 36.7 L, MCV 92.9, MCH 30.4, MCHC 32.7, RDW 15.1 H, Plt Count 64 L, MPV 13.0 H, Neutrophils % (Manual) 85 H, Band Neuts % (Manual) 2, Lymphocytes % (Manual) 6 L, Monocytes % (Manual) 4, Immature Granulocytes 2 H, Neutrophils # (Manual) 15.6 H, Lymphocytes # (Manual) 1.1 L, Monocytes # (Manual) 0.7, Atypic/Reactive Lymphs 1, Platelet Estimate Decreased L 01/23/20 23:55: Urine Color Dark yellow, Urine Appearance Slightly cloudy, Urine pH 5.0, Ur Specific [place] 1.020, Urine Protein 15 H, Urine Glucose (UA) Negative, Urine Ketones 5, Urine Blood 50 H, Urine Nitrate Negative, Urine Bilirubin 1 H, Urine Ictotest Negative, Prot Sulfosalicylic Acd Negative, Urine Urobilinogen Normal, Ur Leukocyte Esterase 25 H, Urine RBC 0-5, Urine WBC 0-5, Ur Epithelial Cells Trace, Amorphous Sediment Moderate - 2+ H, Urine Bacteria 1+ H, Urine Culture Comments Culture to follow 01/24/20 02:00: Lactic Acid, Venous 2.3 H* 01/24/20 02:00: Troponin I 0.353 H* 01/24/20 06:40: Sodium 141, Plasma Sodium 142, Potassium 3.3 L, Chloride 107 H, Carbon Dioxide 24.7, Anion Gap 12.6, BUN 57 H, Creatinine 2.16 H, Est GFR (Non- Af Amer) 32 L, BUN/Creatinine Ratio 26.4 H, Random Glucose 187 H, Calcium 8.3 01/24/20 06:40: WBC 17.2 H, RBC 3.49 L, Hgb 10.8 L, Hct 32.6 L, MCV 93.4, MCH 30.9, MCHC 33.1, RDW 15.2 H, Plt Count 57 L, MPV 12.7 H, Immature Gran % (Auto) 0.50 H, Immature Gran # (Auto) 0.09 H, Neutrophils % 83.9 H, Lymphocytes % 6.9 L, Monocytes % 8.0, Eosinophils % 0.6, Basophils % 0.1, Nucleated RBC % 0.0, Neutrophils # 14.4 H, Lymphocytes # 1.18 L, Monocytes # 1.4 H, Eosinophils # 0.1, Absolute Basophils 0.0 01/24/20 08:47: Troponin I 0.172 H* 01/24/20 13:04: Troponin I 0.110 H 01/24/20 18:42: Troponin I 0.206 H* 01/24/20 21:50: Troponin I 0.141 H* 01/25/20 06:30: WBC 19.0 H, RBC 3.39 L, Hgb 10.4 L, Hct 31.8 L, MCV 93.8, MCH 30.7, MCHC 32.7, RDW 15.5 H, Plt Count 47 L, MPV 12.5 H, Immature Gran % (Auto) 0.60 H, Immature Gran # (Auto) 0.12 H, Neutrophils % 86.5 H, Lymphocytes % 5.7 L, Monocytes % 5.7, Eosinophils % 1.3, Basophils % 0.2, Nucleated RBC % 0.0, Neutrophils # 16.4 H, Lymphocytes # 1.09 L, Monocytes # 1.1 H, Eosinophils # 0.2, Absolute Basophils 0.0 01/25/20 06:30: Sodium 140, Plasma Sodium 141, Potassium 3.2 L, Chloride 105, Carbon Dioxide 28.4, Anion Gap 9.8, BUN 55 H, Creatinine 1.92 H, Est GFR (Non-Af Amer) 36 L, BUN/Creatinine Ratio 28.6 H, Random Glucose 138 H, Calcium 8.4, Calcium Adj for Albumin 9.4, Total Bilirubin 1.6 H, AST 39, ALT 49, Alkaline Phosphatase 147, Total Protein 5.9 L, Albumin 2.3 L 01/25/20 06:30: ESR 63 H 01/25/20 06:30: C-Reactive Prot, Quant 27.0 H 01/26/20 08:56: WBC 14.0 H D, RBC 3.24 L, Hgb 10.0 L, Hct 30.2 L, MCV 93.2, MCH 30.9, MCHC 33.1, RDW 15.4 H, Plt Count 40 L, MPV 13.6 H, Immature Gran % (Auto) 0.90 H, Immature Gran # (Auto) 0.12 H, Neutrophils % 85.0 H, Lymphocytes % 6.4 L, Monocytes % 5.7, Eosinophils % 1.6, Basophils % 0.4, Nucleated RBC % 0.0, Neutrophils # 11.9 H, Lymphocytes # 0.89 L, Monocytes # 0.8, Eosinophils # 0.2, Absolute Basophils 0.1 01/26/20 08:56: Sodium 138, Plasma Sodium 139, Potassium 3.4, Chloride 105, Carbon Dioxide 24.9, Anion Gap 11.5, BUN 53 H, Creatinine 1.85 H, Est GFR (Non- Af Amer) 38 L, BUN/Creatinine Ratio 28.6 H, Random Glucose 180 H D, Calcium 8.3 01/27/20 06:57: WBC 12.8 H, RBC 3.24 L, Hgb 9.8 L, Hct 30.0 L, MCV 92.6, MCH 30.2, MCHC 32.7, RDW 15.6 H, Plt Count 43 L, MPV 14.1 H, Immature Gran % (Auto) 1.20 H, Immature Gran # (Auto) 0.15 H, Neutrophils % 82.2 H, Lymphocytes % 7.8 L, Monocytes % 6.5, Eosinophils % 1.9, Basophils % 0.4, Nucleated RBC % 0.0, Neutrophils # 10.6 H, Lymphocytes # 1.00 L, Monocytes # 0.8, Eosinophils # 0.3, Absolute Basophils 0.1 01/27/20 06:57: Sodium 138, Plasma Sodium 138, Potassium 3.8, Chloride 105, Carbon Dioxide 23.6 L, Anion Gap 13.2, BUN 48 H, Creatinine 1.85 H, Est GFR (Non-Af Amer) 38 L, BUN/Creatinine Ratio 25.9 H, Random Glucose 116 H D, Calcium 8.4 01/28/20 06:50: WBC 12.6 H, RBC 3.22 L, Hgb 9.7 L, Hct 29.6 L, MCV 91.9, MCH 30.1, MCHC 32.8, RDW 15.3 H, Plt Count 63 L, MPV 12.8 H, Immature Gran % (Auto) 1.60 H, Immature Gran # (Auto) 0.20 H, Neutrophils % 83.9 H, Lymphocytes % 7.6 L, Monocytes % 4.8, Eosinophils % 1.5, Basophils % 0.6, Nucleated RBC % 0.0, Neutrophils # 10.6 H, Lymphocytes # 0.96 L, Monocytes # 0.6, Eosinophils # 0.2, Absolute Basophils 0.1 01/28/20 06:50: Sodium 138, Plasma Sodium 138, Potassium 4.0, Chloride 105, Carbon Dioxide 25.2, Anion Gap 11.8, BUN 39 H, Creatinine 1.64 H, Est GFR (Non- Af Amer) 44 L, BUN/Creatinine Ratio 23.8 H, Random Glucose 110, Calcium 8.2 Discharge Location: Home Disposition: Home self-care Condition: Stable Discharge Activity: Activity as tolerated Discharge Diet: Consistent carbs Referrals: Laila Roberts MD [Primary Care Provider] - Additional Patient Instructions (free text): IV antibiotics daily in the [facility] [place] at 9am. Follow up with PCP in 1 week. Prescriptions (Any new or edited meds): Furosemide [Lasix] 40 mg PO DAILY #30 tab Transmission Status: Pending to [place], [place] Famotidine [Pepcid] 20 mg PO BID #60 tab Transmission Status: Pending to [place], [place] cefTRIAXone SODIUM [Rocephin] 1,000 mg IV Q24H 7 Days #7 vial Complete Home Medications List: Complete Home Medication List: Atorvastatin Calcium 20 mg PO DAILY 12/31/16 Irbesartan [Avapro] 300 mg PO DAILY 12/31/16 cyanocobalamin (vitamin B-12) 1,000 mcg tablet 1,000 mcg PO DAILY 01/24/18 OneTouch Delica Lancets 30 gauge See Dose Instructions .ROUTE .MEDSUPPLY #200 ea NS 07/14/18 dabigatran etexilate 150 mg capsule 150 mg PO BID 01/07/19 polyethylene glycol 3350 17 gram/dose oral powder 17 g PO BID 01/07/19 sennosides 8.6 mg tablet 8.6 mg PO BID 01/07/19 allopurinol 100 mg tablet 100 mg PO BID #180 tab 08/17/19 blood sugar diagnostic See Dose Instructions .ROUTE .MEDSUPPLY #100 ea 09/14/19 mometasone 0.1 % topical solution 1 applic TP BID ml 11/17/19 Aspirin [Aspirin EC] 81 mg PO DAILY 12/03/19 Ferrous Sulfate [High Potency Iron] 27 mg PO DAILY 12/03/19 Lactobacillus Rhamnosus GG [Culturelle] 1 tab PO DAILY 12/03/19 Levomefolate/B6/B12/Algal Oil [Metanx Capsule] 1 ea PO DAILY 12/03/19 Metoprolol Succinate [Toprol Xl] 50 mg PO DAILY 12/03/19 acetaminophen 500 mg tablet 500 mg PO Q6H PRN #0.1 tab 12/04/19 amlodipine 2.5 mg tablet 2.5 mg PO DAILY #0.1 tab 12/04/19 fentanyl 12 mcg/hr transdermal patch 1 patch TRANSDERMAL Q72H #5 ea 01/13/20 Clotrimazole/Betamethasone Dip [Lotrisone Cream] 1 applic TOPICAL PRN 01/24/20 Pregabalin [Lyrica] 100 mg PO QID 01/24/20 Famotidine [Pepcid] 20 mg PO BID #60 tab 01/29/20 Furosemide [Lasix] 40 mg PO DAILY #30 tab 01/29/20 cefTRIAXone SODIUM [Rocephin] 1,000 mg IV Q24H 7 Days #7 vial 01/29/20 Amb Orders for Discharge: CBC Time Frame: 02/01/20, Facility: [facility], Location: Laboratory UCS * Time Frame: 02/01/20, Facility: [facility], Location: Laboratory Culture Blood Time Frame: 02/01/20, Facility: [facility], Location: Laboratory Forms: Patient Portal Registration
[2020-01-29] MEDS: INSULIN REGULAR, HUMAN 100 UNITS/ML VIAL SC SCH ×2 (08:59→11:49)
--- NOTE | 2020-01-29 09:04 | ANES ---
Anesthesia Procedure Note Procedure Note: ANESTHESIA PROCEDURE NOTE Date of procedure: 01/29/2020. Time of procedure: 02 12. Performed by: Satish Rolle CRNA Inspection Manager: None . Preprocedure diagnosis: Need for long-term antibiotic therapy. Post procedure diagnosis: Same. Procedure: PICC line Placement Indications: Need for long-term antibiotic. Findings: Ultrasound utilized in attempt to identify vascular access right antecubital fossa and also right basilic vein. Attempted to cannulate basilic vein without success. Patient has a recently implanted pacemaker in the left chest. Left sided PICC line access was not attempted. Dr. Roberts notified. Patient will receive antibiotics through a peripheral IV site. EBL: Minimal. Fluids: N/A. Specimen: N/A. Post procedure condition: The patient tolerated the procedure well. No complications were noted. Thank you for this consultation Satish Rolle CRNA
[2020-01-29] MEDS: ASPIRIN 81 MG TABLET.DR PO SCH (10:11)
[2020-01-29] MEDS: LACTOBACILLUS ACIDOPHILUS 1 EACH CAPSULE PO SCH (10:11)
[2020-01-29] MEDS: POLYETHYLENE GLYCOL 3350 17 GM PACKET PO SCH (10:11)
[2020-01-29] MEDS: FUROSEMIDE 40 MG TABLET PO SCH (10:12)
[2020-01-29] MEDS: ALLOPURINOL 100 MG TABLET PO SCH (10:12)
[2020-01-29] MEDS: POTASSIUM CHLORIDE 10 MEQ TABLET.SA PO SCH (10:13)
[2020-01-29] MEDS: DOCUSATE SODIUM 100 MG CAPSULE PO SCH (10:14)
[2020-01-29] MEDS: METOPROLOL SUCCINATE 50 MG TABLET.SA PO SCH (10:15)
[2020-01-29] MEDS: FAMOTIDINE 20 MG TABLET PO SCH (10:15)
[2020-01-29] MEDS: PREGABALIN 50 MG CAPSULE PO SCH ×2 (10:17→14:26)
[2020-01-29] MEDS ORDERED: BISACODYL 10 MG SUPP.RECT RC ONE (12:22)
[2020-01-29 14:43] VITALS: BP 115/59
--- NOTE | 2020-02-05 09:04 | ECHO ---
This report is available in the EMR
== END 2020-01-29 13:43 | disposition home or self-care (01) | DRG 690 ==
LOC: ER 22:24 → MS 01-24 02:51
PROVIDERS: ADMIT Family Medicine; ATTEND Internal Medicine
DX: E11.621 Type 2 diabetes mellitus with foot ulcer; N17.9 Acute kidney failure, unspecified; R78.81 Bacteremia; R79.89 Other specified abnormal findings of blood chemistry; B96.4 Proteus (mirabilis) (morganii) as the cause of diseases classified elsewhere; R50.9 Fever, unspecified; M54.9 Dorsalgia, unspecified; R11.10 Vomiting, unspecified; I25.10 Atherosclerotic heart disease of native coronary artery without angina pectoris; E87.2 Acidosis; Z85.46 Personal history of malignant neoplasm of prostate; I48.0 Paroxysmal atrial fibrillation; G47.33 Obstructive sleep apnea (adult) (pediatric); Z11.59 Encounter for screening for other viral diseases; I35.0 Nonrheumatic aortic (valve) stenosis; L97.529 Non-pressure chronic ulcer of other part of left foot with unspecified severity; R06.02 Shortness of breath; N39.0 Urinary tract infection, site not specified; E78.00 Pure hypercholesterolemia, unspecified; B96.89 Other specified bacterial agents as the cause of diseases classified elsewhere
CPT/HCPCS: 36415; 71010; 71045; 72110; 73630; 76770; 80048; 80053; 81001; 83519; 83605; 83880; 84484; 85025; 85610; 85652; 85730; 86140; 87040; 87077; 87086; 87186; 93005; 93306; 94660; 96365; 96375; 97110; 97116; 97161; 99285; C9803; J0131; J2405

== ENCOUNTER 2020-02-09 21:11 | Inpatient (IN) ==
[2020-02-09 21:42] LABS: Urine Bilirubin Negative (NEGATIVE); Urine Blood Negative /ul (NEGATIVE); Urine Ketone Negative (NEGATIVE); Urine Nitrite Negative (NEGATIVE); Urine Protein Negative (NEGATIVE); Urine Urobilinogen Normal (NORMAL); Urine pH 6.5 pH (5.0-7.0)
[2020-02-09] MEDS ORDERED: NORMAL SALINE 1,000 ML IV ONE (21:50)
[2020-02-09 21:51] LABS: Urine Appearance Clear (CLEAR); Urine Color Yellow
[2020-02-09 21:52] LABS: Urine Bacteria TRACE; Urine RBC TRACE /hpf (0-5); Urine WBC TRACE /hpf (0-5)
--- NOTE | 2020-02-09 21:53 | ERNOTE ---
Medical Problem HPI - General Chief Complaint: Fever Time Seen by Provider: 02/09/20 21:34 Source: patient, family Exam Limitations: clinical condition - Immun/Allergies/Home Medications Immunizations: IMMUNIZATION HX Immunizations Up to Date Yes History of Influenza Vaccine Yes Hx Pneumococcal Vaccination Yes Allergies/Adverse Reactions: Allergies Sulfa (Sulfonamide Antibiotics) [Sulfa(Sulfonamide Antibiotics)] Allergy (Severe, Verified 02/09/20 21:38) facial and tongue swelling tetracycline [Tetracycline] Allergy (Severe, Verified 02/09/20 21:38) facial and tongue swelling clindamycin Allergy (Intermediate, Verified 02/09/20 21:38) rash on genitals levofloxacin [From Levaquin] Adverse Reaction (Intermediate, Verified 02/09/20 21:38) severe rash seasonal allergies Adverse Reaction (Intermediate, Uncoded 02/09/20 21:38) rhinitis Home Medications: HOME MEDICATIONS Atorvastatin Calcium 20 mg PO DAILY 12/31/16 [Last Taken Unknown] Irbesartan [Avapro] 300 mg PO DAILY 12/31/16 [Last Taken Unknown] cyanocobalamin (vitamin B-12) 1,000 mcg tablet 1,000 mcg PO DAILY 01/24/18 [Last Taken Unknown] polyethylene glycol 3350 17 gram/dose oral powder 17 g PO BID 01/07/19 [Last Taken Unknown] sennosides 8.6 mg tablet 8.6 mg PO BID 01/07/19 [Last Taken Unknown] allopurinol 100 mg tablet 100 mg PO BID #180 tab 08/17/19 [Last Taken Unknown] Aspirin [Aspirin EC] 81 mg PO DAILY 12/03/19 [Last Taken Unknown] Ferrous Sulfate [High Potency Iron] 65 mg PO DAILY 12/03/19 [Last Taken Unknown] Lactobacillus Rhamnosus GG [Culturelle] 1 tab PO DAILY 12/03/19 [Last Taken Unknown] Levomefolate/B6/B12/Algal Oil [Metanx Capsule] 1 ea PO DAILY 12/03/19 [Last Taken Unknown] Metoprolol Succinate [Toprol Xl] 50 mg PO DAILY 12/03/19 [Last Taken Unknown] amlodipine 2.5 mg tablet 2.5 mg PO DAILY #0.1 tab 12/04/19 [Last Taken Unknown] Clotrimazole/Betamethasone Dip [Lotrisone Cream] 1 applic TOPICAL PRN 07/26/20 [Last Taken Unknown] Pregabalin [Lyrica] 100 mg PO QID 01/24/20 [Last Taken Unknown] Famotidine [Pepcid] 20 mg PO BID #60 tab 01/29/20 [Last Taken Unknown] Furosemide [Lasix] 40 mg PO DAILY #30 tab 01/29/20 [Last Taken Unknown] acetaminophen 500 mg tablet 500 mg PO Q6H PRN #90 tab 02/03/20 [Last Taken 02/09/20 19:00] fentanyl 12 mcg/hr transdermal patch 1 patch TRANSDERMAL Q72H #5 ea 02/03/20 [Last Taken Unknown] Cephalexin 500 mg PO PRN PRN 02/09/20 [Last Taken Unknown] Dabigatran Etexilate Mesylate [Pradaxa] 150 mg PO BID 02/09/20 [Last Taken Unknown] Hydrochlorothiazide [Microzide] 12.5 mg PO DAILY 02/09/20 [Last Taken Unknown] Zinc Oxide/Petrolatum,White [Sensi-Care Protective Barrier] 113 gm TOPICAL PRN PRN 02/09/20 [Last Taken Unknown] oxyCODONE HCL/ACETAMINOPHEN [Oxycodone-Acetaminophen 5-325] 1 ea PO PRN PRN 02/09/20 [Last Taken Unknown] - History of Present History Narrative: Patient has been seen here for possible UTI last week. He has been getting antibiotics but today he began running a fever again and was getting somewhat confused and was brought in by EMS for further evaluation Timing: getting worse Severity: moderate Review of Systems - Review of Systems Constitutional: Present: recent illness, fever, chills, fatigue, malaise EYE: Absent: vision changes ENT: Present: nasal drainage - Just a little Respiratory: Present: shortness of breath - Just a little, cough Cardiology: Absent: chest pain, palpitations Gastrointestinal/Abdominal: Present: abdominal pain. Absent: nausea, vomiting Genitourinary: Present: dysuria Musculoskeletal: Present: back pain, muscle pain Skin: Absent: rash Neurological: Absent: headache, dizziness/light-headedness Endocrine: Absent: excessive sweating Medical History (Last Reviewed 02/09/20 @ 21:55 by Carlos Severino DO) Diabetic ulcer of left foot (Acute) Onset Date: Unknown BPH with urinary obstruction Onset Date: Unknown Dr. Raul Fall MD Back pain Onset Date: Unknown L2-3 disc bulge Incontinence Onset Date: Unknown Influenza vaccine refused Onset Date: Unknown Wants to receive at later date. 04/06/19. [facility] Prostate cancer Onset Date: Unknown Urinary incontinence Onset Date: Unknown Atrial fibrillation Onset Date: ~1995 PAF Coronary artery disease Onset Date: Unknown Diabetes Onset Date: Unknown Diabetes mellitus type 2 in obese Onset Date: Unknown Elevated cholesterol Onset Date: Unknown Hyperlipidemia Onset Date: Unknown Hypertension Onset Date: Unknown Joint pain Onset Date: 09/06/11 Neuropathy Onset Date: Unknown Obesity Onset Date: Unknown Osteoarthritis Onset Date: 09/06/11 Sleep apnea Onset Date: Unknown CPAP Hx of intestinal obstruction Onset Date: Unknown Kidney stones Onset Date: ~08/2002 Partial small bowel obstruction Onset Date: Unknown Surgical History: Surgical History (Last Reviewed 02/09/20 @ 21:55 by Carlos Severino DO) Hx of aortic valve replacement Onset Date: ~10/2019 U oF I Hx of heart surgery Onset Date: ~10/2019 U of I-Tevac procedure Abnormal colonoscopy Onset Date: 01/09/10 Bagan-2 tubular adenomas and 1 hyperplastic polyp H/O barium enema Onset Date: 05/19/15 normal-redundant colon. Recheck in 10 years. H/O cardiac catheterization Onset Date: 11/26/02 normal EF minimal CAD right dominant H/O cardioversion Onset Date: 01/21/03 Dr. Leonardo SAVAGE H/O lithotripsy Onset Date: ~05/2008 H/O radical prostatectomy Onset Date: ~12/2009 History of extraction of renal calculus Onset Date: ~07/2008 History of gastric surgery Onset Date: ~1999 Hx of abdominal surgery Onset Date: Unknown Hx of total knee arthroplasty Onset Date: ~2009 [place] Normal colonoscopy Onset Date: 05/18/15 03/14/01 01' [place]. 15' [place]-extremely redundant capacious colon. Normal to hepatic flexure. Barium edema done-nomal. Recheck 10 years with barium edema. Normal cystoscopy Onset Date: 12/09/13 [place] Status post epidural steroid injection Onset Date: 05/18/15 x2 07/22/02 artificial urinary sphincter insertion Onset Date: ~2010 [facility] Family History: Family History (Last Reviewed 02/09/20 @ 21:55 by Carlos Severino DO) Brother Heart disease, Onset Age: 44 coronary stent placement Neuropathy Brother , age 7-ruptured appendix age 65- suicide Ruptured appendix suicide Father , 77 Emphysema of lung Mother , 62 Myocardial infarction Hypertension Cancer Breast Diabetes Heart disease Sister Myocardial infarction Heart disease Sister Myocardial infarction 44, 48, 62, and 65 Cancer, Onset Age: 62 breast CHF (congestive heart failure), Onset Age: 85 Son A-fib paroxysmal Social History: (Last Reviewed 02/09/20 @ 21:55 by Carlos Severino DO) Social History: Marital status: household members: spouse current occupational status: retired Highest education level completed: Bachelor's degree Service: No Tobacco: Smoking Status: Never smoker Alcohol: alcohol intake: former Substance Use: substance use type: does not use Dietary Habits: caffeine: Yes caffeine comment: 2-3 Type: coffee Personal Safety: victim of physical abuse: No victim of sexual abuse: No Physical Exam - Physical Exam General Appearance: Present: wd/wn, alert, mild distress Head Exam: Present: normal inspection, no evidence of injury Eye Exam: Normal inspection: bilateral, PERRL: bilateral Ears, Nose, Throat: Present: normal ENT inspection Neck: Present: normal inspection, nontender, supple Respiratory: Present: no respiratory distress, no accessory muscle use, rhonchi - Bilateral bases Cardiovascular/Chest: Present: regular rate, rhythm, systolic murmur - 4 / 6 Gastrointestinal/Abdominal: Present: normal bowel sounds, nondistended, soft, tenderness - Diffuse mild Extremity Exam: Present: normal inspection, normal range of motion, no edema Neurological Exam: Present: alert, disoriented to time Skin Exam: Present: normal color, warm/dry Lymphatic Exam: Present: no adenopathy Progress - Results and Orders Patient's Lab Results:: I have reviewed the patient's lab results. Results and Orders: Laboratory Tests 02/09/20 02/09/20 02/09/20 21:35 22:05 22:05 WBC 12.0 H Hgb 10.9 L Hct 33.8 L Plt Count 163 Neutrophils % 81.6 H Sodium 140 Potassium 4.1 Chloride 106 Anion Gap 13.9 H BUN 26 H Creatinine 1.81 H Random Glucose 162 H Lactic Acid, Venous Albumin 2.9 L Urine Color Yellow Urine Appearance Clear Urine pH 6.5 Ur Specific [place] 1.010 Urine Ketones Negative Urine Blood Negative Urine Nitrate Negative Urine Bilirubin Negative Ur Leukocyte Esterase Negative 08/11/20 22:05 WBC Hgb Hct Plt Count Neutrophils % Sodium Potassium Chloride Anion Gap BUN Creatinine Random Glucose Lactic Acid, Venous 2.6 H* Albumin Urine Color Urine Appearance Urine pH Ur Specific [place] Urine Ketones Urine Blood Urine Nitrate Urine Bilirubin Ur Leukocyte Esterase - Vital Signs Patient's Vital Signs:: I have reviewed the patient's vital signs. Vital Signs: Vital Signs 02/09/20 21:24 02/09/20 21:30 02/09/20 21:38 Temperature 40.5 C H 39.2 C H 39.2 C H Pulse Rate 63 62 71 Respiratory Rate 12 22 H 15 Blood Pressure 136/52 136/48 141/47 O2 Sat by Pulse Oximetry 97 96 96 - EKG EKG #1 EKG read: Interp. by me EKG Comments: Ventricular pacemaker. No specific abnormality is able to be ascertained due to pacemaker. - CT/Ultrasound CT/Ultrasound Narrative: CT abdomen pelvis with IV and oral contrast. 1. Acute left ureteritis without definite stone possibly reflecting acute pyelonephritis. 2. Left renal pelvic nephrolithiasis. 3. Distended gallbladder if indicated ultrasound would be helpful for more definitive assessment of potential acute cholecystitis - Progress/Reassessment Chief Complaint: Fever Progress Note-Subjective: 02/10/20 01:54 CT results returned suggesting left ureteritis possible acute pyelonephritis which goes along with the patient's recent UTI that he has been being treated on outpatient basis with IV Rocephin. CT results suggesting possible acute cholecystitis would not fit with the patient's physical exam as he had no right upper quadrant tenderness. I spoke with Dr. Jluio he agrees to admit the patient for treatment of acute pyelonephritis. As the patient has failed Rocephin outpatient will need to use another antibiotic. Next choice would be Levaquin but patient has severe rash allergy to Levaquin. We will use Zosyn to start despite it not being in the sepsis guidelines due to his allergies and other recent use of antibiotics Departure Clinical Impression: Pyelonephritis of left kidney - Departure Disposition: Still a patient Condition: Good
[2020-02-09] MEDS ORDERED: KETOROLAC TROMETHAMINE 30 MG/ML VIAL IV ONE (21:59)
[2020-02-09 22:13] LABS: Hematocrit 33.8 % (42.0-52.0); Hemoglobin 10.9 gm/dL (13.5-18.0); Mean Cell Volume 93.1 fl (78-100); Mean Corpuscular Hgb Conc 32.2 g/dl (32-36); Mean Platelet Volume 10.7 fl (8-11.3); Neutrophil # 9.8 K/mm3 (1.3-6.0); Neutrophil % 81.6 % (42-75.0); Platelet Count 163 K/mm3 (150-450); Red Blood Count 3.63 M/mm3 (4.7-6.0); Red Cell Distribution Width 14.7 % (11.5-14.0)
[2020-02-09] MEDS ORDERED: DIATRIZOATE MEGLUMINE, SODIUM 30 ML BTL PO ONE (22:24)
[2020-02-09 22:29] LABS: Albumin * 2.9 gm/dl (3.4-5.0); Anion Gap 13.9 mmol/L (6.8-13.8); BUN/Creatinine Ratio 14.4 (9.0-21.6); Bilirubin, Total 0.9 mg/dL (0.0-1.1); Ca. Corrected For Albumin 9.7 mg/dL (8.4-10.2); Calcium * 9.1 mg/dL (7.9-10.9); Carbon Dioxide 24.2 mmol/L (24-32.6); Potassium 4.1 mmol/L (3.4-4.6); Total Protein 7.1 gm/dL (6.2-8.2)
[2020-02-09] MEDS ORDERED: ONDANSETRON HCL/PF 2 MG/ML VIAL IV ONE (22:49)
[2020-02-10] MEDS ORDERED: PIPERACILLIN SODIUM/TAZOBACTAM 3.375 GM in DEXTROSE 5 % IN WATER 100 ML IV ONE ×2 (01:50)
--- NOTE | 2020-02-10 08:26 | HP ---
Chief Complaint - Chief Complaint Date of Service: 02/10/20 Time of Service: 08:01 Chief Complaint: confusion/fever History of Present Illness: Moe Gutierrez is a 73-year-old white male with past medical history of diabetes mellitus type 2, chronic diastolic congestive heart failure, paroxysmal atrial fibrillation, nonrheumatic aortic valve stenosis status post Betsey essential hypertension, history of prostate cancer, thrombocytopenia, obstructive sleep apnea on CPAP who was admitted on 02/10/2020 because of confusion and fever and chills. 5 days prior to admission the patient had cleaning of his teeth, dental prophylkaxis. He took prophylactic antibiotic, amoxicillin, prior to his dental procedure . The patient started having chills and shakes in the afternoon but no fever. Yesterday morning the patient's took his temperat ure and it was 104. He was having confusion and so they brought him to the emergency room where his white blood cell count was found to be around 12, a urinalysis that was clean, and a CT scan of the abdomen showing possible left ureteritis likely due to acute pyelonephritis and thickening of the gallbladder. This was an unofficial reading. The patient was just recently discharged here for Proteus mirabilis bacteremia and urinary tract infection and had 14 days of IV antibiotics. His repeat urinalysis and blood cultures on 02/01/2020 showed no urinary tract infection and no growth for 5 days with WBC going back to normal He was started on IV Zosyn and admitted for IV antibiotics and further . Medical History (Last Reviewed 02/10/20 @ 03:15 by Daniela Handy RN) Diabetic ulcer of left foot (Acute) Onset Date: Unknown BPH with urinary obstruction Onset Date: Unknown Dr. Raul Fall MD Back pain Onset Date: Unknown L2-3 disc bulge Incontinence Onset Date: Unknown Influenza vaccine refused Onset Date: Unknown Wants to receive at later date. 04/06/19. [facility] Prostate cancer Onset Date: Unknown Urinary incontinence Onset Date: Unknown Atrial fibrillation Onset Date: ~1995 PAF Coronary artery disease Onset Date: Unknown Diabetes Onset Date: Unknown Diabetes mellitus type 2 in obese Onset Date: Unknown Elevated cholesterol Onset Date: Unknown Hyperlipidemia Onset Date: Unknown Hypertension Onset Date: Unknown Joint pain Onset Date: 09/06/11 Neuropathy Onset Date: Unknown Obesity Onset Date: Unknown Osteoarthritis Onset Date: 09/06/11 Sleep apnea Onset Date: Unknown CPAP Hx of intestinal obstruction Onset Date: Unknown Kidney stones Onset Date: ~08/2002 Partial small bowel obstruction Onset Date: Unknown Surgical History: Surgical History (Last Reviewed 02/10/20 @ 03:16 by Daniela Handy RN) Hx of aortic valve replacement Onset Date: ~10/2019 U oF I Hx of heart surgery Onset Date: ~10/2019 U of I-Tevac procedure Abnormal colonoscopy Onset Date: 01/09/10 Bagan-2 tubular adenomas and 1 hyperplastic polyp H/O barium enema Onset Date: 05/19/15 normal-redundant colon. Recheck in 10 years. H/O cardiac catheterization Onset Date: 11/26/02 normal EF minimal CAD right dominant H/O cardioversion Onset Date: 01/21/03 Dr. Leonardo SAVAGE H/O lithotripsy Onset Date: ~05/2008 H/O radical prostatectomy Onset Date: ~12/2009 History of extraction of renal calculus Onset Date: ~07/2008 History of gastric surgery Onset Date: ~1999 Hx of abdominal surgery Onset Date: Unknown Hx of total knee arthroplasty Onset Date: ~2009 [place] Normal colonoscopy Onset Date: 05/18/15 03/14/01 01' Isidroerg. 15' Bagan-extremely redundant capacious colon. Normal to hepatic flexure. Barium edema done-nomal. Recheck 10 years with barium edema. Normal cystoscopy Onset Date: 12/09/13 [place] Status post epidural steroid injection Onset Date: 05/18/15 x2 07/22/02 artificial urinary sphincter insertion Onset Date: ~2010 [facility] Family History: Family History (Last Reviewed 02/10/20 @ 03:16 by Daniela Handy RN) Brother Heart disease, Onset Age: 44 coronary stent placement Neuropathy Brother , age 7-ruptured appendix age 65- suicide Ruptured appendix suicide Father , 77 Emphysema of lung Mother , 62 Myocardial infarction Hypertension Cancer Breast Diabetes Heart disease Sister Myocardial infarction Heart disease Sister Myocardial infarction 44, 48, 62, and 65 Cancer, Onset Age: 62 breast CHF (congestive heart failure), Onset Age: 85 Son A-fib paroxysmal Social History: (Last Reviewed 02/10/20 @ 03:16 by Daniela Handy RN) Social History: Marital status: household members: spouse current occupational status: retired Highest education level completed: Bachelor's degree Service: No Tobacco: Smoking Status: Never smoker Alcohol: alcohol intake: former Substance Use: substance use type: does not use Dietary Habits: caffeine: Yes caffeine comment: 2-3 Type: coffee Personal Safety: victim of physical abuse: No victim of sexual abuse: No Review Of Systems (GEN) - Review of Systems Generalized/Overall Review: Present: Chills, Fever EENTM: Absent: Blurred Vision Respiratory: Absent: Cough, Shortness of Breath, Orthopnea Cardiac: Absent: Chest Pain, Edema, Palpitations Abdominal: Absent: Nausea, Vomiting, Abdominal Pain Genitourinary: Absent: Urgency, Frequency, Hematuria, Polyuria Musculoskeletal: Present: Back Pain. Absent: Joint Pain Neurological: Present: Other - confusion. Absent: Headache Skin: Absent: Lesions, Rash Endocrine: Absent: Intolerance to Cold, Intolerance to Heat Misc: All systems neg except as marked Immunizations: IMMUNIZATION HX Immunizations Up to Date Yes History of Influenza Vaccine Yes Hx Pneumococcal Vaccination Yes Allergies/Adverse Reactions: Allergies Allergy/AdvReac Type Severity Reaction Status Date / Time Sulfa (Sulfonamide Allergy Severe facial and Verified 02/09/20 21:38 Antibiotics) tongue [Sulfa(Sulfonamide swelling Antibiotics)] tetracycline [Tetracycline] Allergy Severe facial and Verified 02/09/20 21:38 tongue swelling clindamycin Allergy Intermediate rash on Verified 02/09/20 21:38 genitals levofloxacin [From Levaquin] AdvReac Intermediate severe rash Verified 02/09/20 21:38 seasonal allergies AdvReac Intermediate rhinitis Uncoded 02/09/20 21:38 Home Medications: HOME MEDICATIONS Atorvastatin Calcium 20 mg PO DAILY 12/31/16 [Last Taken Unknown] Irbesartan [Avapro] 300 mg PO DAILY 12/31/16 [Last Taken Unknown] cyanocobalamin (vitamin B-12) 1,000 mcg tablet 1,000 mcg PO DAILY 01/24/18 [Last Taken Unknown] polyethylene glycol 3350 17 gram/dose oral powder 17 g PO BID 01/07/19 [Last Taken Unknown] sennosides 8.6 mg tablet 8.6 mg PO BID 01/07/19 [Last Taken Unknown] allopurinol 100 mg tablet 100 mg PO BID #180 tab 08/17/19 [Last Taken Unknown] Aspirin [Aspirin EC] 81 mg PO DAILY 12/03/19 [Last Taken Unknown] Ferrous Sulfate [High Potency Iron] 65 mg PO DAILY 12/03/19 [Last Taken Unknown] Lactobacillus Rhamnosus GG [Culturelle] 1 tab PO DAILY 12/03/19 [Last Taken Unknown] Levomefolate/B6/B12/Algal Oil [Metanx Capsule] 1 ea PO DAILY 12/03/19 [Last Taken Unknown] Metoprolol Succinate [Toprol Xl] 50 mg PO DAILY 12/03/19 [Last Taken Unknown] amlodipine 2.5 mg tablet 2.5 mg PO DAILY #0.1 tab 12/04/19 [Last Taken Unknown] Clotrimazole/Betamethasone Dip [Lotrisone Cream] 1 applic TOPICAL PRN 01/24/20 [Last Taken Unknown] Pregabalin [Lyrica] 100 mg PO QID 01/24/20 [Last Taken Unknown] Famotidine [Pepcid] 20 mg PO BID #60 tab 01/29/20 [Last Taken Unknown] Furosemide [Lasix] 40 mg PO DAILY #30 tab 01/29/20 [Last Taken Unknown] acetaminophen 500 mg tablet 500 mg PO Q6H PRN #90 tab 02/03/20 [Last Taken 02/09/20 19:00] fentanyl 12 mcg/hr transdermal patch 1 patch TRANSDERMAL Q72H #5 ea 02/03/20 [Last Taken Unknown] Cephalexin 500 mg PO PRN PRN 02/09/20 [Last Taken Unknown] Dabigatran Etexilate Mesylate [Pradaxa] 150 mg PO BID 02/09/20 [Last Taken Unknown] Hydrochlorothiazide [Microzide] 12.5 mg PO DAILY 02/09/20 [Last Taken Unknown] Zinc Oxide/Petrolatum,White [Sensi-Care Protective Barrier] 113 gm TOPICAL PRN PRN 02/09/20 [Last Taken Unknown] oxyCODONE HCL/ACETAMINOPHEN [Oxycodone-Acetaminophen 5-325] 1 ea PO PRN PRN 02/09/20 [Last Taken Unknown] Exam - Exam Vital Signs: Vital Signs - Last Taken Temp 37.4 C 02/10/20 07:09 Pulse 72 02/10/20 07:09 Resp 24 H 02/10/20 07:09 BP 128/54 02/10/20 07:09 Pulse Ox 98 02/10/20 07:09 Constitutional: Present: Alert, Oriented x3, Cooperative ENT Exam: Present: hearing grossly normal Eye Exam: bilateral eye: normal inspection, PERRL, EOMI Neck: Present: supple Respiratory: Present: decreased breath sounds, No rales, No wheezing Cardiovascular/Chest: Present: regular rate, rhythm, no JVD, systolic murmur Abdomen: Present: Normal bowel sounds, soft, nontender, obese Extremity: Present: no pedal edema, no calf tenderness Neurologic: Present: laboratory inspector II-XII nml as tested, no motor/sensory deficits, alert, oriented x 3 Diagnostic Studies: Abnormal Lab Results 02/09/20 02/09/20 02/09/20 Range/Units 22:05 22:05 22:05 WBC 12.0 H (4.0-10.5) K/mm3 RBC 3.63 L (4.7-6.0) M/mm3 Hgb 10.9 L (13.5-18.0) gm/dL Hct 33.8 L (42.0-52.0) % RDW 14.7 H (11.5-14.0) % Immature Gran # (Auto) 0.05 H (0.000-0.0310) K/mm3 Neutrophils % 81.6 H (42-75.0) % Lymphocytes % 6.0 L (20-51) % Monocytes % 10.9 H (0.0-9) % Neutrophils # 9.8 H (1.3-6.0) K/mm3 Lymphocytes # 0.72 L (1.5-3.5) k/mm3 Monocytes # 1.3 H (0.0-1.0) k/mm3 Anion Gap 13.9 H (6.8-13.8) mmol/L BUN 26 H (6-23) mg/dL Creatinine 1.81 H (0.4-1.4) mg/dL Est GFR (Non-Af Amer) 39 L (60-130) mL/min Random Glucose 162 H (70-110) mg/dL Lactic Acid, Venous 2.6 H* (0.4-2.0) mmol/L Albumin 2.9 L (3.4-5.0) gm/dl Laboratory Results WBC 12.0 K/mm3 (4.0-10.5) H 02/09/20 22:05 RBC 3.63 M/mm3 (4.7-6.0) L 02/09/20 22:05 Hgb 10.9 gm/dL (13.5-18.0) L 02/09/20 22:05 Hct 33.8 % (42.0-52.0) L 02/09/20 22:05 MCV 93.1 fl (78-100) 02/09/20 22:05 MCH 30.0 pg (27-31) 02/09/20 22:05 MCHC 32.2 g/dl (32-36) 02/09/20 22:05 RDW 14.7 % (11.5-14.0) H 02/09/20 22:05 Plt Count 163 K/mm3 (150-450) 02/09/20 22:05 MPV 10.7 fl (8-11.3) 02/09/20 22:05 Immature Gran % (Auto) 0.40 % (0.001-0.429) 02/09/20 22:05 Immature Gran # (Auto) 0.05 K/mm3 (0.000-0.0310) H 02/09/20 22:05 Neutrophils % 81.6 % (42-75.0) H 02/09/20 22:05 Lymphocytes % 6.0 % (20-51) L 02/09/20 22:05 Monocytes % 10.9 % (0.0-9) H 02/09/20 22:05 Eosinophils % 0.4 % (0.0-3.0) 02/09/20 22:05 Basophils % 0.7 % (0.0-1.0) 02/09/20 22:05 Nucleated RBC % 0.0 k/mm3 (0-1) 02/09/20 22:05 Neutrophils # 9.8 K/mm3 (1.3-6.0) H 02/09/20 22:05 Lymphocytes # 0.72 k/mm3 (1.5-3.5) L 02/09/20 22:05 Monocytes # 1.3 k/mm3 (0.0-1.0) H 02/09/20 22:05 Eosinophils # 0.1 k/mm3 (0.0-0.7) 02/09/20 22:05 Absolute Basophils 0.1 k/mm3 (0.0-0.1) 02/09/20 22:05 Sodium 140 mmol/L (132-142) 02/09/20 22:05 Plasma Sodium 141 mmol/L (130-142) 02/09/20 22:05 Potassium 4.1 mmol/L (3.4-4.6) 02/09/20 22:05 Chloride 106 mmol/L (97-106) 02/09/20 22:05 Carbon Dioxide 24.2 mmol/L (24-32.6) 02/09/20 22:05 Anion Gap 13.9 mmol/L (6.8-13.8) H 02/09/20 22:05 BUN 26 mg/dL (6-23) H 02/09/20 22:05 Creatinine 1.81 mg/dL (0.4-1.4) H 02/09/20 22:05 Est GFR (Non-Af Amer) 39 mL/min (60-130) L 02/09/20 22:05 BUN/Creatinine Ratio 14.4 (9.0-21.6) 02/09/20 22:05 Random Glucose 162 mg/dL (70-110) H 02/09/20 22:05 Lactic Acid, Venous 1.9 mmol/L (0.4-2.0) 02/10/20 00:51 Calcium 9.1 mg/dL (7.9-10.9) 02/09/20 22:05 Calcium Adj for Albumin 9.7 mg/dL (8.4-10.2) 02/09/20 22:05 Total Bilirubin 0.9 mg/dL (0.0-1.1) 02/09/20 22:05 AST 25 U/L (0-48) 02/09/20 22:05 ALT 25 U/L (19-67) 02/09/20 22:05 Alkaline Phosphatase 142 U/L (50-170) 02/09/20 22:05 Total Protein 7.1 gm/dL (6.2-8.2) 02/09/20 22:05 Albumin 2.9 gm/dl (3.4-5.0) L 02/09/20 22:05 Amylase 31 U/L (25-115) 02/09/20 22:05 Lipase 111 U/L (73-393) 02/09/20 22:05 Urine Color Yellow 02/09/20 21:35 Urine Appearance Clear (CLEAR) 02/09/20 21:35 Urine pH 6.5 pH (5.0-7.0) 02/09/20 21:35 Ur Specific Cullen 1.010 SP.GR. (1.005-1.030) 02/09/20 21:35 Urine Protein Negative mg/dL (NEGATIVE) 02/09/20 21:35 Urine Glucose (UA) Negative mg/dL (NEGATIVE) 02/09/20 21:35 Urine Ketones Negative mg/dL (NEGATIVE) 02/09/20 21:35 Urine Blood Negative /ul (NEGATIVE) 02/09/20 21:35 Urine Nitrate Negative (NEGATIVE) 02/09/20 21:35 Urine Bilirubin Negative mg/dl (NEGATIVE) 02/09/20 21:35 Urine Urobilinogen Normal EU/dl (NORMAL) 02/09/20 21:35 Ur Leukocyte Esterase Negative /ul (NEGATIVE) 02/09/20 21:35 Urine RBC Trace /hpf (0-5) 02/09/20 21:35 Urine WBC Trace /hpf (0-5) 02/09/20 21:35 Ur Epithelial Cells Trace /hpf (0-5) 02/09/20 21:35 Urine Bacteria Trace (NONE) 02/09/20 21:35 Urine Culture Comments No culture indicated 02/09/20 21:35 Assessment/Plan - Narrative Narrative: Moe was admitted for fever, chills, and confusion likely due to bacteremia from dental prophylaxis. Although he did get amoxicillin prophylaxis prior to the procedure it does not cover gram-negative bacilli/anaerobic bacteria. The official reading of his CT scan of abdomen showed no acute intra-abdominal or pelvic process. The left ureter is normal and there was no stone or obstruction or inflammation. No stones. The gallbladder was also normal. We will do blood cultures x2 as there was not one ordered but it may come out to be negative as he just had IV antibiotics for 14 days for a recent UTI and new IV antibiotic was already started in the ER. We will continue with IV Zosyn for now and await results of his cultures. In the meantime we will do more septic work-up and will do a chest x-ray, a wound consult to to evaluate if his chronic ulcer and see if it is a likely source as well. We may have to repeat an echocardiogram to see if there seeding there and r/o endocarditis. His lactic acidosis is resolved. If the source is his genitourinary tract it is not due to a failure of his prior treatment as follow-up urinalysis and blood cultures were negative with a normal WBC but likely due to a reinfection with a different bacteria unless it was only partially suppressed.. - Assessment/Plan (1) Fever Problem: Acute Qualifiers: (2) Leukocytosis Problem: Acute (3) Lactic acidosis Problem: Resolved (4) Diabetes mellitus Problem: Chronic Qualifiers: (5) Hyperlipidemia Problem: Chronic Qualifiers: (6) RHODA on CPAP Problem: Chronic (7) Paroxysmal A-fib Problem: Chronic (8) Aortic valve stenosis Problem: Chronic Qualifiers: (9) Chronic ulcer of left foot Problem: Chronic (10) Hypertension Problem: Chronic Qualifiers: (11) BPH (benign prostatic hyperplasia) Problem: Chronic Qualifiers: (12) Low back pain Problem: Chronic Qualifiers: (13) History of prostate cancer Problem: Chronic (14) Thrombocytopenia Problem: Acute
--- NOTE | 2020-02-10 08:42 | HP ---
History of Present Illness: Moe Gutierrez is a 73-year-old white male with past medical history of diabetes mellitus type 2, chronic diastolic congestive heart failure, paroxysmal atrial fibrillation, nonrheumatic aortic valve stenosis status post Betsey essential hypertension, history of prostate cancer, thrombocytopenia, obstructive sleep apnea on CPAP who was admitted on 02/10/2020 because of confusion and fever and chills. 5 days prior to admission the patient had cleaning of his teeth ( dental prophylaxis) . He had prophylactic amoxicillin intake. In the afternoon the patient started having chills and shakes but no fever. Yesterday morning the patient's took his temperature and it was 104. He was having confusion and so they brought him to the emergency room where his temperature was 40.5, his white blood cell count was found to be around 12, a urinalysis that was clean, and a CT scan of the abdomen showing possible left ureteritis l ikely due to acute pyelonephritis and thickening of the gallbladder. This was an unofficial reading. The patient was just recently discharged here for Proteus mirabilis bacteremia and urinary tract infection and had 14 days of IV antibiotics. His repeat urinalysis and blood cultures on 02/01/2020 showed no urinary tract infection and no growth for 5 days. He was started on IV Rocephin and admitted for IV antibiotics. Medical History (Last Reviewed 02/10/20 @ 03:15 by Daniela Handy RN) Diabetic ulcer of left foot (Acute) Onset Date: Unknown BPH with urinary obstruction Onset Date: Unknown Dr. Raul Fall MD Back pain Onset Date: Unknown L2-3 disc bulge Incontinence Onset Date: Unknown Influenza vaccine refused Onset Date: Unknown Wants to receive at later date. 04/06/19. [facility] Prostate cancer Onset Date: Unknown Urinary incontinence Onset Date: Unknown Atrial fibrillation Onset Date: ~1995 PAF Coronary artery disease Onset Date: Unknown Diabetes Onset Date: Unknown Diabetes mellitus type 2 in obese Onset Date: Unknown Elevated cholesterol Onset Date: Unknown Hyperlipidemia Onset Date: Unknown Hypertension Onset Date: Unknown Joint pain Onset Date: 09/06/11 Neuropathy Onset Date: Unknown Obesity Onset Date: Unknown Osteoarthritis Onset Date: 09/06/11 Sleep apnea Onset Date: Unknown CPAP Hx of intestinal obstruction Onset Date: Unknown Kidney stones Onset Date: ~08/2002 Partial small bowel obstruction Onset Date: Unknown Surgical History: Surgical History (Last Reviewed 02/10/20 @ 03:16 by Daniela Handy RN) Hx of aortic valve replacement Onset Date: ~10/2019 U oF I Hx of heart surgery Onset Date: ~10/2019 U of I-Tevac procedure Abnormal colonoscopy Onset Date: 01/09/10 Bagan-2 tubular adenomas and 1 hyperplastic polyp H/O barium enema Onset Date: 05/19/15 normal-redundant colon. Recheck in 10 years. H/O cardiac catheterization Onset Date: 11/26/02 normal EF minimal CAD right dominant H/O cardioversion Onset Date: 01/21/03 Dr. Leonardo SAVAGE H/O lithotripsy Onset Date: ~05/2008 H/O radical prostatectomy Onset Date: ~12/2009 History of extraction of renal calculus Onset Date: ~07/2008 History of gastric surgery Onset Date: ~1999 Hx of abdominal surgery Onset Date: Unknown Hx of total knee arthroplasty Onset Date: ~2009 [place] Normal colonoscopy Onset Date: 05/18/15 03/14/01 01' [place]. 15' Bagan-extremely redundant capacious colon. Normal to hepatic flexure. Barium edema done-nomal. Recheck 10 years with barium edema. Normal cystoscopy Onset Date: 12/09/13 [place] Status post epidural steroid injection Onset Date: 05/18/15 x2 07/22/02 artificial urinary sphincter insertion Onset Date: ~2010 [facility] Family History: Family History (Last Reviewed 02/10/20 @ 03:16 by Daniela Handy RN) Brother Heart disease, Onset Age: 44 coronary stent placement Neuropathy Brother , age 7-ruptured appendix age 65- suicide Ruptured appendix suicide Father , 77 Emphysema of lung Mother , 62 Myocardial infarction Hypertension Cancer Breast Diabetes Heart disease Sister Myocardial infarction Heart disease Sister Myocardial infarction 44, 48, 62, and 65 Cancer, Onset Age: 62 breast CHF (congestive heart failure), Onset Age: 85 Son A-fib paroxysmal Social History: (Last Reviewed 02/10/20 @ 03:16 by Daniela Handy RN) Social History: Marital status: household members: spouse current occupational status: retired Highest education level completed: Bachelor's degree Service: No Tobacco: Smoking Status: Never smoker Alcohol: alcohol intake: former Substance Use: substance use type: does not use Dietary Habits: caffeine: Yes caffeine comment: 2-3 Type: coffee Personal Safety: victim of physical abuse: No victim of sexual abuse: No Immunizations: IMMUNIZATION HX Immunizations Up to Date Yes History of Influenza Vaccine Yes Hx Pneumococcal Vaccination Yes Allergies/Adverse Reactions: Allergies Allergy/AdvReac Type Severity Reaction Status Date / Time Sulfa (Sulfonamide Allergy Severe facial and Verified 02/09/20 21:38 Antibiotics) tongue [Sulfa(Sulfonamide swelling Antibiotics)] tetracycline [Tetracycline] Allergy Severe facial and Verified 02/09/20 21:38 tongue swelling clindamycin Allergy Intermediate rash on Verified 02/09/20 21:38 genitals levofloxacin [From Levaquin] AdvReac Intermediate severe rash Verified 02/09/20 21:38 seasonal allergies AdvReac Intermediate rhinitis Uncoded 02/09/20 21:38 Home Medications: HOME MEDICATIONS Atorvastatin Calcium 20 mg PO DAILY 12/31/16 [Last Taken Unknown] Irbesartan [Avapro] 300 mg PO DAILY 12/31/16 [Last Taken Unknown] cyanocobalamin (vitamin B-12) 1,000 mcg tablet 1,000 mcg PO DAILY 01/24/18 [Last Taken Unknown] polyethylene glycol 3350 17 gram/dose oral powder 17 g PO BID 01/07/19 [Last Taken Unknown] sennosides 8.6 mg tablet 8.6 mg PO BID 01/07/19 [Last Taken Unknown] allopurinol 100 mg tablet 100 mg PO BID #180 tab 08/17/19 [Last Taken Unknown] Aspirin [Aspirin EC] 81 mg PO DAILY 12/03/19 [Last Taken Unknown] Ferrous Sulfate [High Potency Iron] 65 mg PO DAILY 12/03/19 [Last Taken Unknown] Lactobacillus Rhamnosus GG [Culturelle] 1 tab PO DAILY 12/03/19 [Last Taken Unknown] Levomefolate/B6/B12/Algal Oil [Metanx Capsule] 1 ea PO DAILY 12/03/19 [Last Taken Unknown] Metoprolol Succinate [Toprol Xl] 50 mg PO DAILY 12/03/19 [Last Taken Unknown] amlodipine 2.5 mg tablet 2.5 mg PO DAILY #0.1 tab 12/04/19 [Last Taken Unknown] Clotrimazole/Betamethasone Dip [Lotrisone Cream] 1 applic TOPICAL PRN 01/24/20 [Last Taken Unknown] Pregabalin [Lyrica] 100 mg PO QID 01/24/20 [Last Taken Unknown] Famotidine [Pepcid] 20 mg PO BID #60 tab 01/29/20 [Last Taken Unknown] Furosemide [Lasix] 40 mg PO DAILY #30 tab 01/29/20 [Last Taken Unknown] acetaminophen 500 mg tablet 500 mg PO Q6H PRN #90 tab 02/03/20 [Last Taken 02/09/20 19:00] fentanyl 12 mcg/hr transdermal patch 1 patch TRANSDERMAL Q72H #5 ea 02/03/20 [Last Taken Unknown] Cephalexin 500 mg PO PRN PRN 02/09/20 [Last Taken Unknown] Dabigatran Etexilate Mesylate [Pradaxa] 150 mg PO BID 02/09/20 [Last Taken Unknown] Hydrochlorothiazide [Microzide] 12.5 mg PO DAILY 02/09/20 [Last Taken Unknown] Zinc Oxide/Petrolatum,White [Sensi-Care Protective Barrier] 113 gm TOPICAL PRN PRN 02/09/20 [Last Taken Unknown] oxyCODONE HCL/ACETAMINOPHEN [Oxycodone-Acetaminophen 5-325] 1 ea PO PRN PRN 02/09/20 [Last Taken Unknown] Exam - Exam Vital Signs: Vital Signs - Last Taken Temp 37.4 C 02/10/20 07:09 Pulse 72 02/10/20 07:09 Resp 24 H 02/10/20 07:09 BP 128/54 02/10/20 07:09 Pulse Ox 98 02/10/20 07:09 Diagnostic Studies: Abnormal Lab Results 02/09/20 02/09/20 02/09/20 Range/Units 22:05 22:05 22:05 WBC 12.0 H (4.0-10.5) K/mm3 RBC 3.63 L (4.7-6.0) M/mm3 Hgb 10.9 L (13.5-18.0) gm/dL Hct 33.8 L (42.0-52.0) % RDW 14.7 H (11.5-14.0) % Immature Gran # (Auto) 0.05 H (0.000-0.0310) K/mm3 Neutrophils % 81.6 H (42-75.0) % Lymphocytes % 6.0 L (20-51) % Monocytes % 10.9 H (0.0-9) % Neutrophils # 9.8 H (1.3-6.0) K/mm3 Lymphocytes # 0.72 L (1.5-3.5) k/mm3 Monocytes # 1.3 H (0.0-1.0) k/mm3 Anion Gap 13.9 H (6.8-13.8) mmol/L BUN 26 H (6-23) mg/dL Creatinine 1.81 H (0.4-1.4) mg/dL Est GFR (Non-Af Amer) 39 L (60-130) mL/min Random Glucose 162 H (70-110) mg/dL Lactic Acid, Venous 2.6 H* (0.4-2.0) mmol/L Albumin 2.9 L (3.4-5.0) gm/dl Laboratory Results WBC 12.0 K/mm3 (4.0-10.5) H 02/09/20 22:05 RBC 3.63 M/mm3 (4.7-6.0) L 02/09/20 22:05 Hgb 10.9 gm/dL (13.5-18.0) L 02/09/20 22:05 Hct 33.8 % (42.0-52.0) L 02/09/20 22:05 MCV 93.1 fl (78-100) 02/09/20 22:05 MCH 30.0 pg (27-31) 02/09/20 22:05 MCHC 32.2 g/dl (32-36) 02/09/20 22:05 RDW 14.7 % (11.5-14.0) H 02/09/20 22:05 Plt Count 163 K/mm3 (150-450) 02/09/20 22:05 MPV 10.7 fl (8-11.3) 02/09/20 22:05 Immature Gran % (Auto) 0.40 % (0.001-0.429) 02/09/20 22:05 Immature Gran # (Auto) 0.05 K/mm3 (0.000-0.0310) H 02/09/20 22:05 Neutrophils % 81.6 % (42-75.0) H 02/09/20 22:05 Lymphocytes % 6.0 % (20-51) L 02/09/20 22:05 Monocytes % 10.9 % (0.0-9) H 02/09/20 22:05 Eosinophils % 0.4 % (0.0-3.0) 02/09/20 22:05 Basophils % 0.7 % (0.0-1.0) 02/09/20 22:05 Nucleated RBC % 0.0 k/mm3 (0-1) 02/09/20 22:05 Neutrophils # 9.8 K/mm3 (1.3-6.0) H 02/09/20 22:05 Lymphocytes # 0.72 k/mm3 (1.5-3.5) L 02/09/20 22:05 Monocytes # 1.3 k/mm3 (0.0-1.0) H 02/09/20 22:05 Eosinophils # 0.1 k/mm3 (0.0-0.7) 02/09/20 22:05 Absolute Basophils 0.1 k/mm3 (0.0-0.1) 02/09/20 22:05 Sodium 140 mmol/L (132-142) 02/09/20 22:05 Plasma Sodium 141 mmol/L (130-142) 02/09/20 22:05 Potassium 4.1 mmol/L (3.4-4.6) 02/09/20 22:05 Chloride 106 mmol/L (97-106) 02/09/20 22:05 Carbon Dioxide 24.2 mmol/L (24-32.6) 02/09/20 22:05 Anion Gap 13.9 mmol/L (6.8-13.8) H 02/09/20 22:05 BUN 26 mg/dL (6-23) H 02/09/20 22:05 Creatinine 1.81 mg/dL (0.4-1.4) H 02/09/20 22:05 Est GFR (Non-Af Amer) 39 mL/min (60-130) L 02/09/20 22:05 BUN/Creatinine Ratio 14.4 (9.0-21.6) 02/09/20 22:05 Random Glucose 162 mg/dL (70-110) H 02/09/20 22:05 Lactic Acid, Venous 1.9 mmol/L (0.4-2.0) 02/10/20 00:51 Calcium 9.1 mg/dL (7.9-10.9) 02/09/20 22:05 Calcium Adj for Albumin 9.7 mg/dL (8.4-10.2) 02/09/20 22:05 Total Bilirubin 0.9 mg/dL (0.0-1.1) 02/09/20 22:05 AST 25 U/L (0-48) 02/09/20 22:05 ALT 25 U/L (19-67) 02/09/20 22:05 Alkaline Phosphatase 142 U/L (50-170) 02/09/20 22:05 Total Protein 7.1 gm/dL (6.2-8.2) 02/09/20 22:05 Albumin 2.9 gm/dl (3.4-5.0) L 02/09/20 22:05 Amylase 31 U/L (25-115) 02/09/20 22:05 Lipase 111 U/L (73-393) 02/09/20 22:05 Urine Color Yellow 02/09/20 21:35 Urine Appearance Clear (CLEAR) 02/09/20 21:35 Urine pH 6.5 pH (5.0-7.0) 02/09/20 21:35 Ur Specific [place] 1.010 SP.GR. (1.005-1.030) 02/09/20 21:35 Urine Protein Negative mg/dL (NEGATIVE) 02/09/20 21:35 Urine Glucose (UA) Negative mg/dL (NEGATIVE) 02/09/20 21:35 Urine Ketones Negative mg/dL (NEGATIVE) 02/09/20 21:35 Urine Blood Negative /ul (NEGATIVE) 02/09/20 21:35 Urine Nitrate Negative (NEGATIVE) 02/09/20 21:35 Urine Bilirubin Negative mg/dl (NEGATIVE) 02/09/20 21:35 Urine Urobilinogen Normal EU/dl (NORMAL) 02/09/20 21:35 Ur Leukocyte Esterase Negative /ul (NEGATIVE) 02/09/20 21:35 Urine RBC Trace /hpf (0-5) 02/09/20 21:35 Urine WBC Trace /hpf (0-5) 02/09/20 21:35 Ur Epithelial Cells Trace /hpf (0-5) 02/09/20 21:35 Urine Bacteria Trace (NONE) 02/09/20 21:35 Urine Culture Comments No culture indicated 02/09/20 21:35 Assessment/Plan - Narrative Narrative: Moe was admitted for fever, chills, and confusion likely due to bacteremia from dental prophylaxis. Although he did get amoxicillin prophylaxis prior to the procedure it does not cover gram-negative bacilli. The official reading of his CT scan of abdomen showed no acute intra-abdominal or pelvic process. The left ureter is normal and there was no stone or obstruction or inflammation. The gallbladder was also normal. We will do blood cultures x2 as there was not one ordered but it may come out to be negative as IV antibiotics was already started in the ER. We will continue with IV Zosyn for now and await results of his cultures. In the meantime we will do more septic work-up and will do a chest x-ray. A wound consult to to evaluate his chronic ulcer and see if it is a likely source as well. We may have to repeat an echocardiogram to see if there seeding there. His lactic acidosis is resolved. If the source is his genitourinary tract it is not due to a failure of his prior treatment as follow- up urinalysis and blood cultures were negative but likely due to a reinfection. - Assessment/Plan (1) Fever Problem: Resolved Qualifiers: (2) Leukocytosis Problem: Acute (3) Lactic acidosis Problem: Resolved (4) Diabetes mellitus Problem: Chronic Qualifiers: (5) Hyperlipidemia Problem: Chronic Qualifiers: (6) RHODA on CPAP Problem: Chronic (7) Paroxysmal A-fib Problem: Chronic (8) Aortic valve stenosis Problem: Chronic Qualifiers: (9) Chronic ulcer of left foot Problem: Chronic (10) Hypertension Problem: Chronic Qualifiers: (11) BPH (benign prostatic hyperplasia) Problem: Chronic Qualifiers: (12) Low back pain Problem: Chronic Qualifiers: (13) History of prostate cancer Problem: Chronic (14) Thrombocytopenia Problem: Acute
[2020-02-10] MEDS ORDERED: COD LIVER OIL/ZINC OXIDE 113 APPL TUBE TP PRN (08:55)
[2020-02-10] MEDS ORDERED: oxyCODONE HCL/ACETAMINOPHEN 1 TAB TABLET PO PRN (08:55)
[2020-02-10] MEDS: PREGABALIN 50 MG CAPSULE PO SCH ×4 (10:05→21:37)
[2020-02-10] MEDS: fentaNYL 12 MCG PATCH.TD72 TD SCH (10:05)
[2020-02-10] MEDS: PIPERACILLIN SODIUM/TAZOBACTAM 3.375 GM in DEXTROSE 5 % IN WATER 100 ML IV SCH ×4 (10:06→17:32)
[2020-02-10] MEDS: SACCHAROMYCES BOULARDII 250 MG CAPSULE PO SCH ×2 (10:06→21:38)
[2020-02-10] MEDS: METOPROLOL SUCCINATE 50 MG TABLET.SA PO SCH (10:06)
[2020-02-10] MEDS: LOSARTAN POTASSIUM 50 MG TABLET PO SCH (10:06)
[2020-02-10] MEDS: DABIGATRAN ETEXILATE MESYLATE 150 MG CAPSULE PO SCH ×2 (10:06→21:37)
[2020-02-10] MEDS: CYANOCOBALAMIN 1,000 MCG TABLET PO SCH (10:07)
[2020-02-10] MEDS: ASPIRIN 81 MG TABLET.DR PO SCH (10:07)
[2020-02-10] MEDS: FAMOTIDINE 20 MG TABLET PO SCH ×2 (10:07→21:38)
[2020-02-10] MEDS: FERROUS SULFATE 325 MG TABLET PO SCH (10:07)
[2020-02-10] MEDS: FUROSEMIDE 40 MG TABLET PO SCH (10:07)
[2020-02-10] MEDS: ALLOPURINOL 100 MG TABLET PO SCH ×2 (10:07→21:42)
[2020-02-10] MEDS: amLODIPine BESYLATE 5 MG TABLET PO SCH (10:07)
[2020-02-10] MEDS: B12 PO SCH (10:08)
[2020-02-10] MEDS: B6 PO SCH (10:08)
[2020-02-10] MEDS: POLYETHYLENE GLYCOL 3350 17 GM PACKET PO SCH ×2 (10:08→21:35)
[2020-02-10] MEDS: LEVOMEFOLATE PO SCH (10:08)
[2020-02-10] MEDS: ALGAL OIL PO SCH (10:08)
[2020-02-10] MEDS: SENNOSIDES 8.6 MG TABLET PO SCH ×2 (10:18→21:39)
[2020-02-10] MEDS: ACETAMINOPHEN 500 MG TABLET PO PRN (13:55)
--- NOTE | 2020-02-10 13:57 | CONS ---
- Reason for consultation (1) Chronic ulcer of left foot Date of Service: 02/10/20 HPI - General Date of Service: 02/10/20 Narrative: Patient is evaluated at bedside today for chronic diabetic ulcerations of his left foot. He was admitted last evening with fevers, chills, and confusion secondary to pyelonephritis. On admission he was noted to have ulcerations to his left foot. He is a known patient to my practice, and was evaluated/treated for these ulcerations in my office on 02/04/2020. There were no concerns for infection surrounding these ulcerations, and both had improved. I was consulted for evaluation and care of ulcerations. He denies any current foot pain. Still with intermittent chills, but improved. His changed his dressing yesterday. They are applying Aquacel Ag, dry gauze, and tape to the toe ulcer and Aquacel Ag and a Mepilex border to the plantar foot. Source: patient - History of Present Illness Allergies/Adverse Reactions: Allergies Sulfa (Sulfonamide Antibiotics) [Sulfa(Sulfonamide Antibiotics)] Allergy (Severe, Verified 02/09/20 21:38) facial and tongue swelling tetracycline [Tetracycline] Allergy (Severe, Verified 02/09/20 21:38) facial and tongue swelling clindamycin Allergy (Intermediate, Verified 02/09/20 21:38) rash on genitals levofloxacin [From Levaquin] Adverse Reaction (Intermediate, Verified 02/09/20 21:38) severe rash seasonal allergies Adverse Reaction (Intermediate, Uncoded 02/09/20 21:38) rhinitis Home Medications: Home Medications Medication Instructions Recorded Last Taken Atorvastatin Calcium 20 mg PO DAILY 12/31/16 Unknown Irbesartan [Avapro] 300 mg PO DAILY 12/31/16 Unknown cyanocobalamin (vitamin B-12) 1,000 mcg PO DAILY 01/24/18 Unknown 1,000 mcg tablet polyethylene glycol 3350 17 17 g PO BID 01/07/19 Unknown gram/dose oral powder sennosides 8.6 mg tablet 8.6 mg PO BID 01/07/19 Unknown allopurinol 100 mg tablet 100 mg PO BID #180 tab 08/17/19 Unknown Aspirin [Aspirin EC] 81 mg PO DAILY 12/03/19 Unknown Ferrous Sulfate [High Potency Iron] 65 mg PO DAILY 12/03/19 Unknown Lactobacillus Rhamnosus GG 1 tab PO DAILY 12/03/19 Unknown [Culturelle] Levomefolate/B6/B12/Algal Oil 1 ea PO DAILY 12/03/19 Unknown [Metanx Capsule] Metoprolol Succinate [Toprol Xl] 50 mg PO DAILY 12/03/19 Unknown amlodipine 2.5 mg tablet 2.5 mg PO DAILY #0.1 tab 12/04/19 Unknown Clotrimazole/Betamethasone Dip 1 applic TOPICAL PRN 01/24/20 Unknown [Lotrisone Cream] Pregabalin [Lyrica] 100 mg PO QID 01/24/20 Unknown Famotidine [Pepcid] 20 mg PO BID #60 tab 01/29/20 Unknown Furosemide [Lasix] 40 mg PO DAILY #30 tab 01/29/20 Unknown acetaminophen 500 mg tablet 500 mg PO Q6H PRN #90 tab 02/03/20 02/09/20 19:00 fentanyl 12 mcg/hr transdermal 1 patch TRANSDERMAL Q72H #5 ea 02/03/20 Unknown patch Cephalexin 500 mg PO PRN PRN 02/09/20 Unknown Dabigatran Etexilate Mesylate 150 mg PO BID 02/09/20 Unknown [Pradaxa] Hydrochlorothiazide [Microzide] 12.5 mg PO DAILY 02/09/20 Unknown Zinc Oxide/Petrolatum,White 113 gm TOPICAL PRN PRN 02/09/20 Unknown [Sensi-Care Protective Barrier] oxyCODONE HCL/ACETAMINOPHEN 1 ea PO PRN PRN 02/09/20 Unknown [Oxycodone-Acetaminophen 5-325] Potassium Chloride [Klor-Con M10] 10 meq PO DAILY 02/10/20 Unknown metFORMIN HCL [Metformin HCl] 500 mg PO BID 02/10/20 Unknown Procedures Colonoscopy (03/14/01) ENDOSC POLYPECTOMY OF LG INTEST (01/09/10) Injection of anesthetic into spinal canal for analgesia (07/20/02) Injection of other agent into spinal canal (07/20/02) Injection of steroid (07/20/02) Insertion of Infusion Device into Upper Vein, Percutaneous Approach (01/24/20) Inspection of Lower Intestinal Tract, Via Natural or Artificial Opening Endoscopic (05/18/15) Other lysis of peritoneal adhesions (01/10/00) Retrograde pyelogram (12/09/13) Medications - Medications Current Medications: Current Medications Allopurinol (Zyloprim) 100 mg PO BID ELSY Stop: 03/11/20 09:01 Last Admin: 02/10/20 10:07 Dose: 100 mg Documented by: Amlodipine Besylate (Norvasc) 2.5 mg PO DAILY ELSY Stop: 03/11/20 09:01 Last Admin: 02/10/20 10:07 Dose: 2.5 mg Documented by: Aspirin (Aspirin Enteric Coated) 81 mg PO DAILY ELSY Stop: 03/11/20 09:01 Last Admin: 02/10/20 10:07 Dose: 81 mg Documented by: Cyanocobalamin (Vitamin B-12) 1,000 mcg PO DAILY ELSY Stop: 03/11/20 09:01 Last Admin: 02/10/20 10:07 Dose: 1,000 mcg Documented by: Dabigatran (Pradaxa) 150 mg PO BID ELSY Stop: 03/11/20 09:01 Last Admin: 02/10/20 10:06 Dose: 150 mg Documented by: Famotidine (Pepcid) 20 mg PO BID [facility] Stop: 03/11/20 09:01 Last Admin: 02/10/20 10:07 Dose: 20 mg Documented by: Fentanyl (Duragesic) 12 mcg TD Q72H ELSY Stop: 03/11/20 09:01 Last Admin: 02/10/20 10:05 Dose: Not Given Documented by: Ferrous Sulfate (Ferrous Sulfate) 325 mg PO DAILY [facility] Stop: 03/11/20 09:01 Last Admin: 02/10/20 10:07 Dose: 325 mg Documented by: Furosemide (Lasix) 40 mg PO DAILY [facility] Stop: 03/11/20 09:01 Last Admin: 02/10/20 10:07 Dose: 40 mg Documented by: Piperacillin Sod/Tazobactam (Sod 3.375 gm/ Dextrose/Water) 100 mls @ 25 mls/hr IV Q8H [facility]; Protocol Stop: 03/11/20 08:46 Last Admin: 02/10/20 10:06 Dose: 25 mls/hr Documented by: Losartan Potassium (Cozaar) 100 mg PO DAILY [facility] Stop: 03/11/20 09:01 Last Admin: 02/10/20 10:06 Dose: 100 mg Documented by: Metoprolol Succinate (Toprol Xl) 50 mg PO DAILY [facility] Stop: 03/11/20 09:01 Last Admin: 08/12/20 10:06 Dose: 50 mg Documented by: (Levomefolate/B6/B12 /Algal Oil [Metanx Capsule] 1 Ea) 1 ea PO DAILY ELSY Stop: 03/11/20 09:01 Last Admin: 02/10/20 10:08 Dose: Not Given Documented by: Polyethylene Glycol (Miralax) 17 gm PO BID ELSY Stop: 03/11/20 09:01 Last Admin: 02/10/20 10:08 Dose: 17 gm Documented by: Pregabalin (Lyrica) 100 mg PO QID ELS[facility] Stop: 03/11/20 09:01 Last Admin: 02/10/20 10:05 Dose: 100 mg Documented by: Saccharomyces Boulardii (Florastor) 250 mg PO BID [facility] Stop: 03/11/20 09:01 Last Admin: 02/10/20 10:06 Dose: 250 mg Documented by: Senna (Senokot) 8.6 mg PO BID [facility] Stop: 03/11/20 09:01 Last Admin: 02/10/20 10:18 Dose: 8.6 mg Documented by: Review of Systems - Review of Systems Generalized/Overall Review: Present: Weakness, Chills - intermittent, Fever, Malaise, Fatigue Abdominal: Absent: Vomiting, Diarrhea Musculoskeletal: Present: Back Pain Neurological: Present: Numbness Skin: Present: Other - left foot ulceration x2 Endocrine: Absent: Increased Hunger, Increased Thirst Physical Examination - Exam Vital Signs: Vital Signs - Last Taken Temp 38.4 C H 02/10/20 13:51 Pulse 60 02/10/20 13:51 Resp 16 02/10/20 13:51 BP 104/38 02/10/20 13:51 Pulse Ox 96 02/10/20 13:51 O2 Oxygen Delivery Method Room Air Constitutional: Present: Alert, Oriented x3, Cooperative Peripheral Pulses: dorsalis-pedis (L): 2+ Extremity: Present: no pedal edema, other - pes planus left foot Skin Exam: Present: other - Left foot ulcerations as follows: Ulceration to distal tip 3rd toe measuring 0.2 x 0.1 x 0.1 cm. No tunneling or undermining. Loss of tissue to full thickness with exposure of subcutaneous fat layer. Base mostly red, granular. Surrounding tissue slightly callused, otherwise pink, intact. Previous erythema remains resolved. There is a scant amount of serous drainage, no malodor. No exposed tendon or bone at this time. Ulceration to the plantar medial arch of the foot measuring 0.3 x 0.3 x 0.1 cm. No tunneling or undermining. Loss of tissue to full thickness with exposure of subcutaneous fat layer. Base mostly red, healthy, granulation tissue. Surrounding tissue callused, otherwise pink and intact. There no active drainage, no malodor. No exposed tendon or bone at this time. Neurologic: Present: sensory deficit Appearance: Present: appropriate appearance Eye contact: Present: cooperative - Results and Findings: Lab/Microbiology results last 24 hrs: Abnormal/Pending Laboratory Last 24 HRS 02/09/20 02/09/20 02/09/20 22:05 22:05 22:05 WBC 12.0 H RBC 3.63 L Hgb 10.9 L Hct 33.8 L RDW 14.7 H Immature Gran # (Auto) 0.05 H Neutrophils % 81.6 H Lymphocytes % 6.0 L Monocytes % 10.9 H Neutrophils # 9.8 H Lymphocytes # 0.72 L Monocytes # 1.3 H Anion Gap 13.9 H BUN 26 H Creatinine 1.81 H Est GFR (Non-Af Amer) 39 L Random Glucose 162 H Lactic Acid, Venous 2.6 H* Albumin 2.9 L - Assessments/Findings (1) Chronic ulcer of left foot Diagnosis(s): Discussed with patient ulcerations and treatment. Ulcerations are unchanged since his visit last week. They are stable and do not require debridement at this time. I have no current concerns for infection as there is no redness, swelling, pain, or purulence from either ulcerations. Ulcers dressed today with Aquacel Ag. Toe ulcer is covered with dry gauze, and tape dressing. Plantar foot ulcer is covered with Mepilex border. Dressings are to be changed daily. Foot is to be washed well with soap and water and dried with a clean towel prior to applying new dressings. He is to wear his diabetic shoes with all weight bearing activities, do not walk barefoot. Will continue to monitor ulcerations as needed while he remains inpatient. Will schedule follow up upon discharge. Problem: Chronic Qualifiers: Non-pressure ulcer stage: with fat layer exposed Qualified Code(s): L97.522 - Non-pressure chronic ulcer of other part of left foot with fat layer exposed
[2020-02-10] MEDS: INSULIN LISPRO 100 UNITS/ML VIAL SC SCH (17:04)
[2020-02-10] MEDS: ROSUVASTATIN CALCIUM 10 MG TABLET PO SCH (21:38)
[2020-02-11] MEDS: PIPERACILLIN SODIUM/TAZOBACTAM 3.375 GM in DEXTROSE 5 % IN WATER 100 ML IV SCH ×8 (01:01→23:47)
[2020-02-11] MEDS: INSULIN LISPRO 100 UNITS/ML VIAL SC SCH ×3 (07:27→17:13)
[2020-02-11 07:28] LABS: Hematocrit 34.3 % (42.0-52.0); Hemoglobin 10.7 gm/dL (13.5-18.0); Mean Cell Volume 94.5 fl (78-100); Mean Corpuscular Hemoglobin 29.5 pg (27-31); Mean Corpuscular Hgb Conc 31.2 g/dl (32-36); Mean Platelet Volume 11.1 fl (8-11.3); Neutrophil # 8.2 K/mm3 (1.3-6.0); Platelet Count 166 K/mm3 (150-450); Red Blood Count 3.63 M/mm3 (4.7-6.0); White Blood Count 10.7 K/mm3 (4.0-10.5)
[2020-02-11] MEDS: ACETAMINOPHEN 500 MG TABLET PO PRN (07:32)
[2020-02-11 07:35] LABS: BUN/Creatinine Ratio 13.3 (9.0-21.6); Calcium * 8.9 mg/dL (7.9-10.9); Carbon Dioxide 25.1 mmol/L (24-32.6); Estimated Creat Clear 35.6; Potassium 4.1 mmol/L (3.4-4.6)
[2020-02-11] MEDS ORDERED: ACETAMINOPHEN 500 MG TABLET PO ONE (08:48)
--- NOTE | 2020-02-11 08:48 | PN ---
Subjective - Date and Time Seen Date: 02/11/20 Time: 08:37 Subjective Narrative: Patient afebrile this morning but shaking. Tmax was 38.4 yesterday at 1 pm. D0se 3 4 of IV Zosyn. Objective - Review of Systems Generalized/Overall Review: Reports: Chills, Fever EENTM: Denies: Blurred Vision Respiratory: Denies: Cough, Shortness of Breath, Orthopnea Cardiac: Reports: Edema. Denies: Chest Pain, Palpitations Abdominal: Reports: Abdominal Pain. Denies: Nausea, Vomiting Genitourinary Symptoms: Denies: Urgency, Frequency Musculoskeletal Complaints: Reports: Back Pain Neurological: Denies: Headache Skin: Reports: Other - chronic ulcer. Denies: Lesions, Rash - Vitals Vitals: Last Vital Signs Temp 37.1 C 02/11/20 07:05 Pulse 78 02/11/20 07:05 Resp 16 02/11/20 07:05 BP 169/64 H 02/11/20 07:05 Pulse Ox 97 02/11/20 07:05 - Abnormal Lab Findings Abnormal Lab Findings: Abnormal Lab Results 02/10/20 02/10/20 02/11/20 Range/Units 16:50 16:50 07:10 WBC 10.7 H (4.0-10.5) K/mm3 RBC 3.63 L (4.7-6.0) M/mm3 Hgb 10.7 L (13.5-18.0) gm/dL Hct 34.3 L (42.0-52.0) % MCHC 31.2 L (32-36) g/dl RDW 15.0 H (11.5-14.0) % Immature Gran % (Auto) 0.50 H (0.001-0.429) % Immature Gran # (Auto) 0.05 H (0.000-0.0310) K/mm3 Neutrophils % 76.0 H (42-75.0) % Lymphocytes % 12.4 L (20-51) % Eosinophils % 4.4 H (0.0-3.0) % Neutrophils # 8.2 H (1.3-6.0) K/mm3 Lymphocytes # 1.33 L (1.5-3.5) k/mm3 ESR 74 H (0-10) mm/hr Anion Gap (6.8-13.8) mmol/L BUN (6-23) mg/dL Creatinine (0.4-1.4) mg/dL Est GFR (Non-Af Amer) (60-130) mL/min C-Reactive Prot, Quant 9.8 H (0.0-0.9) mg/dL 02/11/20 Range/Units 07:10 WBC (4.0-10.5) K/mm3 RBC (4.7-6.0) M/mm3 Hgb (13.5-18.0) gm/dL Hct (42.0-52.0) % MCHC (32-36) g/dl RDW (11.5-14.0) % Immature Gran % (Auto) (0.001-0.429) % Immature Gran # (Auto) (0.000-0.0310) K/mm3 Neutrophils % (42-75.0) % Lymphocytes % (20-51) % Eosinophils % (0.0-3.0) % Neutrophils # (1.3-6.0) K/mm3 Lymphocytes # (1.5-3.5) k/mm3 ESR (0-10) mm/hr Anion Gap 15.0 H (6.8-13.8) mmol/L BUN 28 H (6-23) mg/dL Creatinine 2.11 H (0.4-1.4) mg/dL Est GFR (Non-Af Amer) 33 L (60-130) mL/min C-Reactive Prot, Quant (0.0-0.9) mg/dL - Exam Constitutional: Present: Alert, Oriented x3, Cooperative, Elderly ENT Exam: Present: hearing grossly normal Neck: Present: supple Respiratory: Present: decreased breath sounds, No rales, No wheezing Cardiovascular/Chest: Present: regular rate, rhythm, no JVD, systolic murmur Abdomen: Present: Normal bowel sounds, soft, obese, tender - slightly tender RUQ, negative Lester sign Extremity: Present: no calf tenderness, pedal edema Neurologic: Present: oriented x 3 Assessment/Plan Plan Narrative: HD # 2. Afebrile this morning but shaking. CXR - no infiltrates, Echo - no vegetation, Wound- clean and with goof granlation tissue, UA clean, CTS of abd- no acute intrabdominal findings. Discussed case with patient and daughter, Mindy - will continue with broadspectrum antibiotics until we get the results of his blood culture. Will get in touch with Dr. Crenshaw, when we get his preliminary culture result likely late today or tomorrow.We may need to do follow up imaging of his LS spine for his h/o discitis. His creatinine is creeping up and we will start him on NSS at 100 mL/h as his p.o. intake was less than 1 L yesterday. - Problems/Diagnosis (1) Fever Problem: Acute Qualifiers: (2) Leukocytosis Problem: Acute (3) Lactic acidosis Problem: Resolved (4) Diabetes mellitus Problem: Chronic Qualifiers: (5) Hyperlipidemia Problem: Chronic Qualifiers: (6) RHODA on CPAP Problem: Chronic (7) Paroxysmal A-fib Problem: Chronic (8) Aortic valve stenosis Problem: Chronic Qualifiers: (9) Chronic ulcer of left foot Problem: Chronic Qualifiers: Non-pressure ulcer stage: with fat layer exposed Qualified Code(s): L97.522 - Non-pressure chronic ulcer of other part of left foot with fat layer exposed (10) Hypertension Problem: Chronic Qualifiers: (11) BPH (benign prostatic hyperplasia) Problem: Chronic Qualifiers: (12) Low back pain Problem: Chronic Qualifiers: (13) History of prostate cancer Problem: Chronic (14) Thrombocytopenia Problem: Chronic
[2020-02-11] MEDS: SACCHAROMYCES BOULARDII 250 MG CAPSULE PO SCH ×2 (09:11→20:42)
[2020-02-11] MEDS: DABIGATRAN ETEXILATE MESYLATE 150 MG CAPSULE PO SCH ×2 (09:12→20:42)
[2020-02-11] MEDS: CYANOCOBALAMIN 1,000 MCG TABLET PO SCH (09:12)
[2020-02-11] MEDS: ASPIRIN 81 MG TABLET.DR PO SCH (09:12)
[2020-02-11] MEDS: POTASSIUM CHLORIDE 10 MEQ TABLET.SA PO SCH (09:12)
[2020-02-11] MEDS: POLYETHYLENE GLYCOL 3350 17 GM PACKET PO SCH ×2 (09:12→21:43)
[2020-02-11] MEDS: ALLOPURINOL 100 MG TABLET PO SCH ×2 (09:12→20:42)
[2020-02-11] MEDS: FERROUS SULFATE 325 MG TABLET PO SCH (09:12)
[2020-02-11] MEDS: LOSARTAN POTASSIUM 50 MG TABLET PO SCH (09:12)
[2020-02-11] MEDS: FUROSEMIDE 40 MG TABLET PO SCH (09:12)
[2020-02-11] MEDS: LEVOMEFOLATE PO SCH (09:13)
[2020-02-11] MEDS: ALGAL OIL PO SCH (09:13)
[2020-02-11] MEDS: B12 PO SCH (09:13)
[2020-02-11] MEDS: FAMOTIDINE 20 MG TABLET PO SCH ×2 (09:13→20:42)
[2020-02-11] MEDS: METOPROLOL SUCCINATE 50 MG TABLET.SA PO SCH (09:13)
[2020-02-11] MEDS: B6 PO SCH (09:13)
[2020-02-11] MEDS: amLODIPine BESYLATE 5 MG TABLET PO SCH (09:13)
[2020-02-11] MEDS: SENNOSIDES 8.6 MG TABLET PO SCH ×2 (09:18→21:43)
[2020-02-11] MEDS: PREGABALIN 50 MG CAPSULE PO SCH ×4 (09:18→20:40)
[2020-02-11] MEDS: NORMAL SALINE 1,000 ML IV PRN ×2 (09:24→19:48)
[2020-02-11] MEDS: ROSUVASTATIN CALCIUM 10 MG TABLET PO SCH (20:41)
[2020-02-12] MEDS: NORMAL SALINE 1,000 ML IV PRN ×2 (05:47→12:32)
[2020-02-12 07:43] LABS: Hematocrit 29.2 % (42.0-52.0); Hemoglobin 9.3 gm/dL (13.5-18.0); Mean Corpuscular Hemoglobin 29.6 pg (27-31); Mean Corpuscular Hgb Conc 31.8 g/dl (32-36); Mean Platelet Volume 10.9 fl (8-11.3); Neutrophil # 7.6 K/mm3 (1.3-6.0); Neutrophil % 73.3 % (42-75.0); Platelet Count 138 K/mm3 (150-450); Red Blood Count 3.14 M/mm3 (4.7-6.0); Red Cell Distribution Width 14.8 % (11.5-14.0); White Blood Count 10.4 K/mm3 (4.0-10.5)
[2020-02-12] MEDS: INSULIN LISPRO 100 UNITS/ML VIAL SC SCH ×3 (07:49→16:43)
[2020-02-12 07:57] LABS: Anion Gap 11.9 mmol/L (6.8-13.8); BUN/Creatinine Ratio 14.7 (9.0-21.6); Calcium * 8.5 mg/dL (7.9-10.9); Estimated Creat Clear 40.8; Potassium 3.9 mmol/L (3.4-4.6)
[2020-02-12] MEDS: PIPERACILLIN SODIUM/TAZOBACTAM 3.375 GM in DEXTROSE 5 % IN WATER 100 ML IV SCH ×4 (08:19→16:43)
[2020-02-12] MEDS: amLODIPine BESYLATE 5 MG TABLET PO SCH (08:20)
[2020-02-12] MEDS: SACCHAROMYCES BOULARDII 250 MG CAPSULE PO SCH ×2 (08:20→20:43)
[2020-02-12] MEDS: METOPROLOL SUCCINATE 50 MG TABLET.SA PO SCH (08:21)
[2020-02-12] MEDS: DABIGATRAN ETEXILATE MESYLATE 150 MG CAPSULE PO SCH (08:21)
[2020-02-12] MEDS: FUROSEMIDE 40 MG TABLET PO SCH (08:21)
[2020-02-12] MEDS: FAMOTIDINE 20 MG TABLET PO SCH ×2 (08:22→20:43)
[2020-02-12] MEDS: B6 PO SCH (08:22)
[2020-02-12] MEDS: POTASSIUM CHLORIDE 10 MEQ TABLET.SA PO SCH (08:22)
[2020-02-12] MEDS: ALGAL OIL PO SCH (08:22)
[2020-02-12] MEDS: B12 PO SCH (08:22)
[2020-02-12] MEDS: FERROUS SULFATE 325 MG TABLET PO SCH (08:22)
[2020-02-12] MEDS: ALLOPURINOL 100 MG TABLET PO SCH ×2 (08:22→20:43)
[2020-02-12] MEDS: LOSARTAN POTASSIUM 50 MG TABLET PO SCH (08:22)
[2020-02-12] MEDS: LEVOMEFOLATE PO SCH (08:22)
[2020-02-12] MEDS: ASPIRIN 81 MG TABLET.DR PO SCH (08:22)
[2020-02-12] MEDS: CYANOCOBALAMIN 1,000 MCG TABLET PO SCH (08:22)
[2020-02-12] MEDS: PREGABALIN 50 MG CAPSULE PO SCH ×4 (08:23→20:43)
[2020-02-12] MEDS: POLYETHYLENE GLYCOL 3350 17 GM PACKET PO SCH ×2 (08:23→20:42)
[2020-02-12] MEDS: SENNOSIDES 8.6 MG TABLET PO SCH ×2 (08:23→20:43)
[2020-02-12] MEDS: fentaNYL 12 MCG PATCH.TD72 TD SCH (08:31)
--- NOTE | 2020-02-12 10:44 | PN ---
Subjective - Date and Time Seen Date: 02/12/20 Time: 10:36 Subjective Narrative: shaun is feeling better this morning. Had abdominal pain and loose stools lastnight and small emesis. AXR showed no obstruction except for bowel conntrast. has been afebrile since 1 pm fo 09/10/2019. Objective - Review of Systems Generalized/Overall Review: Reports: Weakness. Denies: Chills, Fever EENTM: Denies: Blurred Vision Respiratory: Denies: Shortness of Breath, Orthopnea Cardiac: Denies: Chest Pain, Edema, Palpitations Abdominal: Reports: Nausea - resolved, Vomiting - resolved, Abdominal Pain - resolved Genitourinary Symptoms: Denies: Urgency Musculoskeletal Complaints: Reports: Back Pain Neurological: Denies: Headache Skin: Denies: Lesions, Rash Misc: All systems neg except as marked - Vitals Vitals: Last Vital Signs Temp 36.5 C 02/12/20 07:17 Pulse 60 02/12/20 08:22 Resp 20 02/12/20 07:17 BP 125/59 02/12/20 08:22 Pulse Ox 100 02/12/20 07:17 - Abnormal Lab Findings Abnormal Lab Findings: Abnormal Lab Results 02/12/20 02/12/20 Range/Units 07:30 07:30 RBC 3.14 L (4.7-6.0) M/mm3 Hgb 9.3 L (13.5-18.0) gm/dL Hct 29.2 L (42.0-52.0) % MCHC 31.8 L (32-36) g/dl RDW 14.8 H (11.5-14.0) % Plt Count 138 L (150-450) K/mm3 Immature Gran % (Auto) 0.70 H (0.001-0.429) % Immature Gran # (Auto) 0.07 H (0.000-0.0310) K/mm3 Lymphocytes % 13.3 L (20-51) % Monocytes % 10.9 H (0.0-9) % Neutrophils # 7.6 H (1.3-6.0) K/mm3 Lymphocytes # 1.38 L (1.5-3.5) k/mm3 Monocytes # 1.1 H (0.0-1.0) k/mm3 BUN 27 H (6-23) mg/dL Creatinine 1.84 H (0.4-1.4) mg/dL Est GFR (Non-Af Amer) 38 L (60-130) mL/min Random Glucose 131 H (70-110) mg/dL - Exam Constitutional: Present: Alert, Oriented x3, Cooperative, Obese ENT Exam: Present: hearing grossly normal Neck: Present: supple Respiratory: Present: decreased breath sounds, No rales, No wheezing Cardiovascular/Chest: Present: regular rate, rhythm, no JVD, systolic murmur Abdomen: Present: Normal bowel sounds, soft, nontender, nondistended Extremity: Present: no calf tenderness, pedal edema Assessment/Plan Plan Narrative: Shaun is feeling better this morning. He had a bout of abdominal pain, loose stools/diarrhea with small emesis last night. I put him on clear liquids and increase his IV fluids and got an abdominal x-ray which showed no acute intraabdominal findings. Positive contrast in the bowels. We got a C. difficile which was negative and I believe his GI problems last night was due to his bowel contrast being eliminated.. He has been afebrile since 1 PM of 09/10/2019. His white blood cell count has gone back to normal. His blood cultures for the 48 hours has been showing no growth. I discussed his condition with patient and with his daughter Mindy. I told him that I was going to call his infectious disease doctor and get his recommendation. I am awaiting his call back. If patient continues to be afebrile for 48 to 72 hours consider changing to oral antibiotics with good bioavailabilty if his blood culture still shows no growth. - Problems/Diagnosis (1) Fever Problem: Acute Qualifiers: (2) Leukocytosis Problem: Acute (3) Lactic acidosis Problem: Resolved (4) Diabetes mellitus Problem: Chronic Qualifiers: (5) Hyperlipidemia Problem: Chronic Qualifiers: (6) RHODA on CPAP Problem: Chronic (7) Paroxysmal A-fib Problem: Chronic (8) Aortic valve stenosis Problem: Chronic Qualifiers: (9) Chronic ulcer of left foot Problem: Chronic Qualifiers: Non-pressure ulcer stage: with fat layer exposed Qualified Code(s): L97.522 - Non-pressure chronic ulcer of other part of left foot with fat layer exposed (10) Hypertension Problem: Chronic Qualifiers: (11) BPH (benign prostatic hyperplasia) Problem: Chronic Qualifiers: (12) Low back pain Problem: Chronic Qualifiers: (13) History of prostate cancer Problem: Chronic (14) Thrombocytopenia Problem: Chronic
[2020-02-12] MEDS ORDERED: BISACODYL 10 MG SUPP.RECT RC PRN (13:06)
[2020-02-12] MEDS: ROSUVASTATIN CALCIUM 10 MG TABLET PO SCH (20:43)
[2020-02-12] MEDS: DABIGATRAN ETEXILATE MESYLATE 75 MG CAPSULE PO SCH (20:44)
[2020-02-13] MEDS: PIPERACILLIN SODIUM/TAZOBACTAM 3.375 GM in DEXTROSE 5 % IN WATER 100 ML IV SCH ×2 (01:24)
[2020-02-13 06:56] LABS: Hematocrit 29.4 % (42.0-52.0); Hemoglobin 9.3 gm/dL (13.5-18.0); Mean Corpuscular Hemoglobin 29.4 pg (27-31); Mean Corpuscular Hgb Conc 31.6 g/dl (32-36); Mean Platelet Volume 11.6 fl (8-11.3); Neutrophil # 5.8 K/mm3 (1.3-6.0); Neutrophil % 63.5 % (42-75.0); Platelet Count 148 K/mm3 (150-450); Red Blood Count 3.16 M/mm3 (4.7-6.0); Red Cell Distribution Width 14.6 % (11.5-14.0); White Blood Count 9.2 K/mm3 (4.0-10.5)
[2020-02-13 07:11] LABS: Anion Gap 12.8 mmol/L (6.8-13.8); Calcium * 8.4 mg/dL (7.9-10.9); Carbon Dioxide 25.1 mmol/L (24-32.6); Estimated Creat Clear 41.7; Potassium 3.9 mmol/L (3.4-4.6)
[2020-02-13] MEDS: INSULIN LISPRO 100 UNITS/ML VIAL SC SCH ×3 (07:46→17:23)
[2020-02-13] MEDS: SACCHAROMYCES BOULARDII 250 MG CAPSULE PO SCH ×2 (08:41→20:19)
[2020-02-13] MEDS: B6 PO SCH (08:41)
[2020-02-13] MEDS: ALGAL OIL PO SCH (08:41)
[2020-02-13] MEDS: B12 PO SCH (08:41)
[2020-02-13] MEDS: FAMOTIDINE 20 MG TABLET PO SCH ×2 (08:41→20:18)
[2020-02-13] MEDS: POLYETHYLENE GLYCOL 3350 17 GM PACKET PO SCH ×2 (08:41→20:19)
[2020-02-13] MEDS: MEROPENEM 1 GM in NORMAL SALINE 100 ML IV SCH ×2 (08:41→20:17)
[2020-02-13] MEDS: LEVOMEFOLATE PO SCH (08:41)
[2020-02-13] MEDS: PREGABALIN 50 MG CAPSULE PO SCH ×4 (08:41→20:18)
[2020-02-13] MEDS: FERROUS SULFATE 325 MG TABLET PO SCH (08:42)
[2020-02-13] MEDS: ALLOPURINOL 100 MG TABLET PO SCH ×2 (08:42→20:20)
[2020-02-13] MEDS: CYANOCOBALAMIN 1,000 MCG TABLET PO SCH (08:42)
[2020-02-13] MEDS: LOSARTAN POTASSIUM 50 MG TABLET PO SCH (08:42)
[2020-02-13] MEDS: METOPROLOL SUCCINATE 50 MG TABLET.SA PO SCH (08:42)
[2020-02-13] MEDS: POTASSIUM CHLORIDE 10 MEQ TABLET.SA PO SCH (08:42)
[2020-02-13] MEDS: DABIGATRAN ETEXILATE MESYLATE 75 MG CAPSULE PO SCH ×2 (08:42→20:19)
[2020-02-13] MEDS: ASPIRIN 81 MG TABLET.DR PO SCH (08:43)
[2020-02-13] MEDS: amLODIPine BESYLATE 5 MG TABLET PO SCH (08:43)
[2020-02-13] MEDS: fentaNYL 12 MCG PATCH.TD72 TD SCH (08:43)
[2020-02-13] MEDS: SENNOSIDES 8.6 MG TABLET PO SCH ×2 (08:44→20:20)
[2020-02-13] MEDS: FUROSEMIDE 40 MG TABLET PO SCH (08:45)
[2020-02-13] MEDS: NORMAL SALINE 1,000 ML IV PRN (13:54)
[2020-02-13] MEDS: ACETAMINOPHEN 500 MG TABLET PO PRN (13:59)
[2020-02-13] MEDS: ROSUVASTATIN CALCIUM 10 MG TABLET PO SCH (20:19)
--- NOTE | 2020-02-13 22:56 | PN ---
Subjective - Date and Time Seen Date: 02/13/20 Time: 11:30 Subjective Narrative: Patient comfortable sitting in his chair, no acute events overnight. Has not had a fever in close 24 hours. Patient vitals are stable. Patient feels well. Patient denies signs or symptoms of infection anywhere. Zosyn stopped today, continued on meropenem. Objective - Review of Systems Generalized/Overall Review: Reports: No Symptoms Reported. Denies: Weakness, Chills, Fever EENTM: Denies: Nose Congestion, Mouth Swelling Respiratory: Denies: Cough, Shortness of Breath Cardiac: Denies: Chest Pain, Edema, Palpitations Abdominal: Denies: Nausea, Vomiting, Abdominal Pain Genitourinary Symptoms: Denies: Burning, Itching, Urgency, Frequency Musculoskeletal Complaints: Reports: No Symptoms Reported Neurological: Reports: No Symptoms Reported. Denies: Headache Skin: Reports: No Symptoms Reported Endocrine: Reports: No Symptoms Reported - Vitals Vitals: Last Vital Signs Temp 36.8 C 02/13/20 22:14 Pulse 60 02/13/20 22:14 Resp 20 02/13/20 22:14 BP 114/56 02/13/20 22:14 Pulse Ox 99 02/13/20 22:14 - Abnormal Lab Findings Abnormal Lab Findings: Abnormal Lab Results 02/13/20 02/13/20 Range/Units 06:10 06:10 RBC 3.16 L (4.7-6.0) M/mm3 Hgb 9.3 L (13.5-18.0) gm/dL Hct 29.4 L (42.0-52.0) % MCHC 31.6 L (32-36) g/dl RDW 14.6 H (11.5-14.0) % Plt Count 148 L (150-450) K/mm3 MPV 11.6 H (8-11.3) fl Immature Gran # (Auto) 0.04 H (0.000-0.0310) K/mm3 Lymphocytes % 17.3 L (20-51) % Monocytes % 15.9 H (0.0-9) % Monocytes # 1.5 H (0.0-1.0) k/mm3 Creatinine 1.80 H (0.4-1.4) mg/dL Est GFR (Non-Af Amer) 39 L (60-130) mL/min - Exam Constitutional: Present: Alert, Oriented x3, Cooperative, Elderly ENT Exam: Present: hearing grossly normal, pharynx normal. Absent: nasal congestion, nasal drainage Neck: Present: non-tender Respiratory: Present: lungs clear, normal breath sounds Cardiovascular/Chest: Present: regular rate, rhythm, other - conveyor mechanic valve heard Abdomen: Present: Normal bowel sounds, soft, nontender, nondistended /Rectal: Present: Exam deferred Extremity: Present: non-tender, no pedal edema, no calf tenderness Skin Exam: Present: normal color, warm/dry Appearance: Present: appropriate appearance, appropriate insight Eye contact: Present: cooperative, good eye contact Thoughts: Present: normal thought pattern, normal mood /affect Assessment/Plan Plan Narrative: Patient feeling very good today. Patient denies abdominal pain, loose stools, diarrhea since 2 days prior. Tolerating p.o. well. He has been afebrile after 24 hours but he states he does feel chills and gets clammy still which has preceded febrile events recently. Patient's lab work and leukocytosis significantly improved. His vital signs are stable. Patient could be discharged home later today but due to his recent antibiotic treatment and is u nknown source of infection, we both agreed that we keep him here 1 more day just to make sure he does not fever again due to his high risk with his recent aortic valve replacement. The patient continues to be afebrile for the next 24 hours then will be discharged home tomorrow with plan to follow-up in the [facility] for his meropenem dosing. Patient is scant an additional 10 days of meropenem at the recommendation of infectious disease. Otherwise patient is stable and feels well. Likely discharge home tomorrow. Nurse call questions or concerns. - Problems/Diagnosis (1) Fever Problem: Acute Qualifiers: (2) Leukocytosis Problem: Acute (3) Paroxysmal A-fib Problem: Chronic (4) Aortic valve stenosis Problem: Chronic Qualifiers: (5) Chronic ulcer of left foot Problem: Chronic Qualifiers: Non-pressure ulcer stage: with fat layer exposed Qualified Code(s): L97.522 - Non-pressure chronic ulcer of other part of left foot with fat layer exposed (6) Hypertension Problem: Chronic Qualifiers: (7) RHODA on CPAP Problem: Chronic
[2020-02-14] MEDS: INSULIN LISPRO 100 UNITS/ML VIAL SC SCH ×3 (08:03→16:52)
[2020-02-14] MEDS: MEROPENEM 1 GM in NORMAL SALINE 100 ML IV SCH ×2 (08:29→17:02)
[2020-02-14] MEDS: POLYETHYLENE GLYCOL 3350 17 GM PACKET PO SCH (08:29)
[2020-02-14] MEDS: amLODIPine BESYLATE 5 MG TABLET PO SCH (08:30)
[2020-02-14] MEDS: METOPROLOL SUCCINATE 50 MG TABLET.SA PO SCH (08:30)
[2020-02-14] MEDS: ASPIRIN 81 MG TABLET.DR PO SCH (08:30)
[2020-02-14] MEDS: DABIGATRAN ETEXILATE MESYLATE 75 MG CAPSULE PO SCH (08:30)
[2020-02-14] MEDS: ALLOPURINOL 100 MG TABLET PO SCH (08:30)
[2020-02-14] MEDS: FAMOTIDINE 20 MG TABLET PO SCH (08:30)
[2020-02-14] MEDS: LOSARTAN POTASSIUM 50 MG TABLET PO SCH (08:30)
[2020-02-14] MEDS: SACCHAROMYCES BOULARDII 250 MG CAPSULE PO SCH (08:30)
[2020-02-14] MEDS: CYANOCOBALAMIN 1,000 MCG TABLET PO SCH (08:30)
[2020-02-14] MEDS: POTASSIUM CHLORIDE 10 MEQ TABLET.SA PO SCH (08:31)
[2020-02-14] MEDS: LEVOMEFOLATE PO SCH (08:31)
[2020-02-14] MEDS: FERROUS SULFATE 325 MG TABLET PO SCH (08:31)
[2020-02-14] MEDS: B6 PO SCH (08:31)
[2020-02-14] MEDS: FUROSEMIDE 40 MG TABLET PO SCH (08:31)
[2020-02-14] MEDS: B12 PO SCH (08:31)
[2020-02-14] MEDS: ALGAL OIL PO SCH (08:31)
[2020-02-14] MEDS: PREGABALIN 50 MG CAPSULE PO SCH ×3 (08:35→16:55)
[2020-02-14] MEDS: SENNOSIDES 8.6 MG TABLET PO SCH (08:39)
[2020-02-14] MEDS ORDERED: MEROPENEM 1 GM in NORMAL SALINE 100 ML IV SCH ×2 (17:30→21:00)
--- NOTE | 2020-02-14 17:41 | DS ---
(1) Fever Problem: Resolved Qualifiers: (2) Leukocytosis Problem: Resolved (3) Paroxysmal A-fib Problem: Chronic (4) Aortic valve stenosis Problem: Chronic Qualifiers: (5) Chronic ulcer of left foot Problem: Chronic Qualifiers: Non-pressure ulcer stage: with fat layer exposed Qualified Code(s): L97.522 - Non-pressure chronic ulcer of other part of left foot with fat layer exposed (6) Hypertension Problem: Chronic Qualifiers: (7) RHODA on CPAP Problem: Chronic Date of Discharge:: 02/14/20 Hospital Course: Mr. Gutierrez is a very pleasant 74-year-old who was readmitted to the hospital after recurring fevers and elevated white count. Unknown source. Patient recently had aortic valve replaced which was an uncomplicated. 5 days prior to admission patient had a planned dental procedure in which he took prophylactic amoxicillin. The day of admission patient was confused and not acting himself, temperature at that time was 104. Patient was brought in and was found to have a white count of 12. All his blood work and scans have come back negative. Unsure of the cause of his fever and leukocytosis. Infectious disease was consulted by Dr. Roberts where he was started on Zosyn and meropenem. Plan is for him to have 14 days of meropenem. Patient remained in the hospital until he is afebrile for these 48 hours which she has been. He will be discharged home the day following his last dose of meropenem which is taking place currently. Patient now has orders to return to the [facility] for meropenem twice daily for the next 10 days. Patient feels well and has no concerns at this time. White count returned to normal over the last 72 hours. No changes to his chronic medicines, patient to follow with his PCP this week. Procedures Performed: none Results and Findings: Pending Mircobiology Results 02/10/20 08:00 Blood Blood Culture - Preliminary NO GROWTH AFTER 48 HOURS 02/10/20 08:21 Blood Blood Culture - Preliminary NO GROWTH AFTER 48 HOURS Lab Pending Results 02/09/20 21:35: Urine Color Yellow, Urine Appearance Clear, Urine pH 6.5, Ur Specific [place] 1.010, Urine Protein Negative, Urine Glucose (UA) Negative, Urine Ketones Negative, Urine Blood Negative, Urine Nitrate Negative, Urine Bilirubin Negative, Urine Urobilinogen Normal, Ur Leukocyte Esterase Negative, Urine RBC Trace, Urine WBC Trace, Ur Epithelial Cells Trace, Urine Bacteria T race, Urine Culture Comments No culture indicated 02/09/20 22:05: WBC 12.0 H, RBC 3.63 L, Hgb 10.9 L, Hct 33.8 L, MCV 93.1, MCH 30.0, MCHC 32.2, RDW 14.7 H, Plt Count 163, MPV 10.7, Immature Gran % (Auto) 0.40, Immature Gran # (Auto) 0.05 H, Neutrophils % 81.6 H, Lymphocytes % 6.0 L, Monocytes % 10.9 H, Eosinophils % 0.4, Basophils % 0.7, Nucleated RBC % 0.0, Neutrophils # 9.8 H, Lymphocytes # 0.72 L, Monocytes # 1.3 H, Eosinophils # 0.1, Absolute Basophils 0.1 02/09/20 22:05: Sodium 140, Plasma Sodium 141, Potassium 4.1, Chloride 106, Carbon Dioxide 24.2, Anion Gap 13.9 H, BUN 26 H, Creatinine 1.81 H, Est GFR (Non-Af Amer) 39 L, BUN/Creatinine Ratio 14.4, Random Glucose 162 H, Calcium 9.1, Calcium Adj for Albumin 9.7, Total Bilirubin 0.9, AST 25, ALT 25, Alkaline Phosphatase 142, Total Protein 7.1, Albumin 2.9 L, Amylase 31, Lipase 111 02/09/20 22:05: Lactic Acid, Venous 2.6 H* 02/10/20 00:51: Lactic Acid, Venous 1.9 02/10/20 08:15: SARS-CoV-2 (PCR) Not detected 02/10/20 16:50: ESR 74 H 02/10/20 16:50: C-Reactive Prot, Quant 9.8 H 02/11/20 07:10: WBC 10.7 H, RBC 3.63 L, Hgb 10.7 L, Hct 34.3 L, MCV 94.5, MCH 29.5, MCHC 31.2 L, RDW 15.0 H, Plt Count 166, MPV 11.1, Immature Gran % (Auto) 0.50 H, Immature Gran # (Auto) 0.05 H, Neutrophils % 76.0 H, Lymphocytes % 12.4 L, Monocytes % 6.1, Eosinophils % 4.4 H, Basophils % 0.6, Nucleated RBC % 0.0, Neutrophils # 8.2 H, Lymphocytes # 1.33 L, Monocytes # 0.7, Eosinophils # 0.5, Absolute Basophils 0.1 02/11/20 07:10: Sodium 139, Plasma Sodium 139, Potassium 4.1, Chloride 103, Carbon Dioxide 25.1, Anion Gap 15.0 H, BUN 28 H, Creatinine 2.11 H, Est GFR (Non-Af Amer) 33 L, BUN/Creatinine Ratio 13.3, Random Glucose 103 D, Calcium 8.9 02/11/20 22:23: Stl C.difficile Tox A&B Negative 02/12/20 07:30: WBC 10.4, RBC 3.14 L, Hgb 9.3 L, Hct 29.2 L, MCV 93.0, MCH 29.6, MCHC 31.8 L, RDW 14.8 H, Plt Count 138 L, MPV 10.9, Immature Gran % (Auto) 0.70 H, Immature Gran # (Auto) 0.07 H, Neutrophils % 73.3, Lymphocytes % 13.3 L, Monocytes % 10.9 H, Eosinophils % 1.5, Basophils % 0.3, Nucleated RBC % 0.0, Neutrophils # 7.6 H, Lymphocytes # 1.38 L, Monocytes # 1.1 H, Eosinophils # 0.2, Absolute Basophils 0.0 02/12/20 07:30: Sodium 137, Plasma Sodium 137, Potassium 3.9, Chloride 104, Carbon Dioxide 25.0, Anion Gap 11.9, BUN 27 H, Creatinine 1.84 H, Est GFR (Non- Af Amer) 38 L, BUN/Creatinine Ratio 14.7, Random Glucose 131 H, Calcium 8.5 02/13/20 06:10: WBC 9.2, RBC 3.16 L, Hgb 9.3 L, Hct 29.4 L, MCV 93.0, MCH 29.4, MCHC 31.6 L, RDW 14.6 H, Plt Count 148 L, MPV 11.6 H, Immature Gran % (Auto) 0.40, Immature Gran # (Auto) 0.04 H, Neutrophils % 63.5, Lymphocytes % 17.3 L, Monocytes % 15.9 H, Eosinophils % 2.5, Basophils % 0.4, Nucleated RBC % 0.0, Neutrophils # 5.8, Lymphocytes # 1.59, Monocytes # 1.5 H, Eosinophils # 0.2, Absolute Basophils 0.0 02/13/20 06:10: Sodium 138, Plasma Sodium 138, Potassium 3.9, Chloride 104, Carbon Dioxide 25.1, Anion Gap 12.8, BUN 18, Creatinine 1.80 H, Est GFR (Non-Af Amer) 39 L, BUN/Creatinine Ratio 10.0, Random Glucose 99, Calcium 8.4 Discharge Location: Home Disposition: Home self-care Condition: Good Discharge Activity: Activity as tolerated Discharge Diet: Low fat/chol Referrals: Laila Roberts MD [Primary Care Provider] - One Week Additional Patient Instructions (free text): Please make an outpatient appointment for Moe Villanueva [facility] on discharge- recurrent fever/chills/infection- may need immunodeficiency work up. Complete Home Medications List: Complete Home Medication List: Atorvastatin Calcium 20 mg PO DAILY 12/31/16 Irbesartan [Avapro] 300 mg PO DAILY 12/31/16 cyanocobalamin (vitamin B-12) 1,000 mcg tablet 1,000 mcg PO DAILY 01/24/18 polyethylene glycol 3350 17 gram/dose oral powder 17 g PO BID 01/07/19 sennosides 8.6 mg tablet 8.6 mg PO BID 01/07/19 allopurinol 100 mg tablet 100 mg PO BID #180 tab 08/17/19 Aspirin [Aspirin EC] 81 mg PO DAILY 12/03/19 Ferrous Sulfate [High Potency Iron] 65 mg PO DAILY 12/03/19 Lactobacillus Rhamnosus GG [Culturelle] 1 tab PO DAILY 12/03/19 Levomefolate/B6/B12/Algal Oil [Metanx Capsule] 1 ea PO DAILY 12/03/19 Metoprolol Succinate [Toprol Xl] 50 mg PO DAILY 12/03/19 amlodipine 2.5 mg tablet 2.5 mg PO DAILY #0.1 tab 12/04/19 Clotrimazole/Betamethasone Dip [Lotrisone Cream] 1 applic TOPICAL PRN 01/24/20 Pregabalin [Lyrica] 100 mg PO QID 01/24/20 Famotidine [Pepcid] 20 mg PO BID #60 tab 01/29/20 Furosemide [Lasix] 40 mg PO DAILY #30 tab 01/29/20 acetaminophen 500 mg tablet 500 mg PO Q6H PRN #90 tab 02/03/20 fentanyl 12 mcg/hr transdermal patch 1 patch TRANSDERMAL Q72H #5 ea 02/03/20 Cephalexin 500 mg PO PRN PRN 02/09/20 Dabigatran Etexilate Mesylate [Pradaxa] 150 mg PO BID 02/09/20 Hydrochlorothiazide [Microzide] 12.5 mg PO DAILY 02/09/20 Zinc Oxide/Petrolatum,White [Sensi-Care Protective Barrier] 113 gm TOPICAL PRN PRN 02/09/20 oxyCODONE HCL/ACETAMINOPHEN [Oxycodone-Acetaminophen 5-325] 1 ea PO PRN PRN 02/09/20 Potassium Chloride [Klor-Con M10] 10 meq PO DAILY 02/10/20 metFORMIN HCL [Metformin HCl] 500 mg PO BID 02/10/20 Forms: Patient Portal Registration
[2020-02-14 18:25] VITALS: BP 124/65
--- NOTE | 2020-02-17 08:27 | ECHO ---
This report is available in the EMR
== END 2020-02-14 19:00 | disposition home or self-care (01) | DRG 868 ==
LOC: ER 21:11 → MS 02-10 01:57
PROVIDERS: ADMIT Family Medicine; ATTEND Internal Medicine
DX: R50.9 Fever, unspecified; G47.33 Obstructive sleep apnea (adult) (pediatric); I35.0 Nonrheumatic aortic (valve) stenosis; I48.0 Paroxysmal atrial fibrillation; D69.6 Thrombocytopenia, unspecified; I50.32 Chronic diastolic (congestive) heart failure; L97.522 Non-pressure chronic ulcer of other part of left foot with fat layer exposed; E87.2 Acidosis; B99.9 Unspecified infectious disease; D72.829 Elevated white blood cell count, unspecified; N20.0 Calculus of kidney; E11.622 Type 2 diabetes mellitus with other skin ulcer
CPT/HCPCS: 36415; 71020; 71046; 74019; 74020; 74177; 80048; 80053; 81001; 82150; 83605; 83690; 85025; 85652; 86140; 87040; 87493; 93005; 93308; 94660; 96374; 96375; 97110; 97116; 97161; 99285; C9803; J2405; Q9963; Q9967

== ENCOUNTER 2020-04-22 14:54 | Observation (INO) ==
[2020-04-22] MEDS ORDERED: FUROSEMIDE 10 MG/ML VIAL IV ONE ×2 (15:10→21:00)
[2020-04-22 15:17] LABS: Hematocrit 35.6 % (42.0-52.0); Hemoglobin 10.7 gm/dL (13.5-18.0); Mean Cell Volume 92.7 fl (78-100); Mean Corpuscular Hemoglobin 27.9 pg (27-31); Mean Corpuscular Hgb Conc 30.1 g/dl (32-36); Mean Platelet Volume 11.5 fl (8-11.3); Neutrophil # 5.7 K/mm3 (1.3-6.0); Neutrophil % 60.7 % (42-75.0); Platelet Count 139 K/mm3 (150-450); Red Blood Count 3.84 M/mm3 (4.7-6.0); Red Cell Distribution Width 19.2 % (11.5-14.0); White Blood Count 9.4 K/mm3 (4.0-10.5)
--- NOTE | 2020-04-22 15:18 | ERNOTE ---
Dyspnea - Date Date of Service: 04/22/20 - General Presenting Symptoms: shortness of breath Time Seen by Provider: 04/22/20 15:03 Source: patient Exam Limitations: no limitations - Immun/Allergies/Home Medications Immunizations: IMMUNIZATION HX Immunizations Up to Date Yes History of Influenza Vaccine No Hx Pneumococcal Vaccination No Allergies/Adverse Reactions: Allergies Sulfa (Sulfonamide Antibiotics) [Sulfa(Sulfonamide Antibiotics)] Allergy (Severe, Verified 04/22/20 15:04) facial and tongue swelling tetracycline [Tetracycline] Allergy (Severe, Verified 04/22/20 15:04) facial and tongue swelling clindamycin Allergy (Intermediate, Verified 04/22/20 15:04) rash on genitals levofloxacin [From Levaquin] Adverse Reaction (Intermediate, Verified 04/22/20 15:04) severe rash seasonal allergies Adverse Reaction (Intermediate, Uncoded 04/22/20 15:04) rhinitis Home Medications: HOME MEDICATIONS Atorvastatin Calcium 20 mg PO DAILY 12/31/16 [Last Taken Unknown] Irbesartan [Avapro] 300 mg PO DAILY 12/31/16 [Last Taken Unknown] cyanocobalamin (vitamin B-12) 1,000 mcg tablet 1,000 mcg PO DAILY 01/24/18 [Last Taken Unknown] polyethylene glycol 3350 17 gram/dose oral powder 17 g PO BID 01/07/19 [Last Taken Unknown] sennosides 8.6 mg tablet 8.6 mg PO BID 01/07/19 [Last Taken Unknown] allopurinol 100 mg tablet 100 mg PO BID #180 tab 08/17/19 [Last Taken Unknown] Aspirin [Aspirin EC] 81 mg PO DAILY 12/03/19 [Last Taken Unknown] Ferrous Sulfate [High Potency Iron] 65 mg PO DAILY 12/03/19 [Last Taken Unknown] Lactobacillus Rhamnosus GG [Culturelle] 1 tab PO DAILY 12/03/19 [Last Taken Unknown] Levomefolate/B6/B12/Algal Oil [Metanx Capsule] 1 ea PO DAILY 12/03/19 [Last Taken Unknown] Metoprolol Succinate [Toprol Xl] 50 mg PO DAILY 12/03/19 [Last Taken Unknown] amlodipine 2.5 mg tablet 2.5 mg PO DAILY #0.1 tab 12/04/19 [Last Taken Unknown] Clotrimazole/Betamethasone Dip [Lotrisone Cream] 1 applic TOPICAL PRN 01/24/20 [Last Taken Unknown] Pregabalin [Lyrica] 100 mg PO QID 01/24/20 [Last Taken Unknown] Famotidine [Pepcid] 20 mg PO BID #60 tab 01/29/20 [Last Taken Unknown] acetaminophen 500 mg tablet 500 mg PO Q6H PRN #90 tab 02/03/20 [Last Taken 02/09/20 19:00] Dabigatran Etexilate Mesylate [Pradaxa] 150 mg PO BID 02/09/20 [Last Taken Unknown] Hydrochlorothiazide [Microzide] 12.5 mg PO DAILY 02/09/20 [Last Taken Unknown] Zinc Oxide/Petrolatum,White [Sensi-Care Protective Barrier] 113 gm TOPICAL PRN PRN 02/09/20 [Last Taken Unknown] oxyCODONE HCL/ACETAMINOPHEN [Oxycodone-Acetaminophen 5-325] 1 ea PO PRN PRN 02/09/20 [Last Taken Unknown] metFORMIN HCL [Metformin HCl] 500 mg PO BID 02/10/20 [Last Taken Unknown] potassium citrate 10 mEq (1,080 mg) tablet,extended release 20 meq PO BID #0.1 tab 02/23/20 [Last Taken Unknown] Ertapenem Sodium [Invanz (Ertapenem)] 1,000 mg IV DAILY 03/11/20 [Last Taken Unknown] Vancomycin HCl [Vancocin HCl] 2.5 ml PO QID 03/11/20 [Last Taken Unknown] furosemide 40 mg tablet 40 mg PO DAILY #30 tab 03/14/20 [Last Taken Unknown] fentanyl 12 mcg/hr transdermal patch 1 patch TRANSDERMAL Q72H #5 ea 03/15/20 [Last Taken Unknown] - History of Present Illness Narrative: Patient presents to the ED for progressive SOB, weight gain. He has put on 8# by report. More SOB. No CP. Some cough but no fever. He was sent in by his home health nurse. Taking medications as directed. Nothing seems to make this better. 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 Denies: fever/chills Prior Treatment: Denies: recently seen Review of Systems - Review of Systems Constitutional: Absent: fever ENT: Absent: sore throat Respiratory: Present: shortness of breath Cardiology: Absent: chest pain Gastrointestinal/Abdominal: Absent: abdominal pain Genitourinary: Absent: dysuria Neurological: Absent: weakness All Other Systems: All systems neg except as marked Medical History (Last Reviewed 04/22/20 @ 15:16 by Jefry River MD) Diabetic ulcer of left foot (Acute) Onset Date: Unknown BPH with urinary obstruction Onset Date: Unknown Dr. Raul Fall MD Back pain Onset Date: Unknown L2-3 disc bulge Incontinence Onset Date: Unknown Influenza vaccine refused Onset Date: Unknown Wants to receive at later date. 04/06/19. SCOT Mullen Prostate cancer Onset Date: Unknown Urinary incontinence Onset Date: Unknown Atrial fibrillation Onset Date: ~1995 PAF Coronary artery disease Onset Date: Unknown Diabetes Onset Date: Unknown Diabetes mellitus type 2 in obese Onset Date: Unknown Elevated cholesterol Onset Date: Unknown Hyperlipidemia Onset Date: Unknown Hypertension Onset Date: Unknown Joint pain Onset Date: 09/06/11 Neuropathy Onset Date: Unknown Obesity Onset Date: Unknown Osteoarthritis Onset Date: 09/06/11 Sleep apnea Onset Date: Unknown CPAP Hx of intestinal obstruction Onset Date: Unknown Kidney stones Onset Date: ~08/2002 Partial small bowel obstruction Onset Date: Unknown Surgical History: Surgical History (Last Reviewed 04/22/20 @ 15:16 by Jefry River MD) Hx of aortic valve replacement Onset Date: ~10/2019 [facility] oF I Hx of heart surgery Onset Date: ~10/2019 [facility]-Tevac procedure Abnormal colonoscopy Onset Date: 01/09/10 Bagan-2 tubular adenomas and 1 hyperplastic polyp H/O barium enema Onset Date: 05/19/15 normal-redundant colon. Recheck in 10 years. H/O cardiac catheterization Onset Date: 11/26/02 normal EF minimal CAD right dominant H/O cardioversion Onset Date: 01/21/03 Dr. Leonardo SAVAGE H/O lithotripsy Onset Date: ~05/2008 H/O radical prostatectomy Onset Date: ~12/2009 History of extraction of renal calculus Onset Date: ~07/2008 History of gastric surgery Onset Date: ~1999 Hx of abdominal surgery Onset Date: Unknown Hx of total knee arthroplasty Onset Date: ~2009 Left-[facility] Normal colonoscopy Onset Date: 05/18/15 03/14/01 01' [place]. 15' Bagan-extremely redundant capacious colon. Normal to hepatic flexure. Barium edema done-nomal. Recheck 10 years with barium edema. Normal cystoscopy Onset Date: 12/09/13 [place] Status post epidural steroid injection Onset Date: 05/18/15 x2 07/22/02 artificial urinary sphincter insertion Onset Date: ~2010 [facility] Family History: Family History (Last Reviewed 04/22/20 @ 15:16 by Jefry River MD) Brother Neuropathy Heart disease, Onset Age: 44 coronary stent placement Brother , age 7-ruptured appendix age 65- suicide suicide Ruptured appendix Father , 77 Emphysema of lung Mother , 62 Heart disease Diabetes Cancer Breast Hypertension Myocardial infarction Sister Heart disease Myocardial infarction Sister CHF (congestive heart failure), Onset Age: 85 Cancer, Onset Age: 62 breast Myocardial infarction 44, 48, 62, and 65 Son A-fib paroxysmal Social History: (Last Reviewed 04/22/20 @ 15:16 by Jefry River MD) Social History: Marital status: household members: spouse current occupational status: retired Highest education level completed: Bachelor's degree Service: No Tobacco: Smoking Status: Never smoker Alcohol: alcohol intake: former Substance Use: substance use type: does not use Dietary Habits: caffeine: Yes caffeine comment: 2-3 Type: coffee Personal Safety: victim of physical abuse: No victim of sexual abuse: No Physical Exam - Physical Exam General Appearance: Present: alert, no apparent distress Head Exam: Present: normal inspection, no evidence of injury Eye Exam: Normal inspection: bilateral, PERRL: bilateral Ears, Nose, Throat: Present: normal ENT inspection Neck: Present: normal inspection Respiratory: Present: no respiratory distress, other - no wheezing, likely pleural effusions Cardiovascular/Chest: Present: regular rate, rhythm Gastrointestinal/Abdominal: Present: normal bowel sounds, nontender, soft, other - drainage tube c/d/i. Skin edema Back Exam: Absent: CVA tenderness (R), CVA tenderness (L) Extremity Exam: Present: extremity edema, other - 3+ bilateral edema Neurological Exam: Present: alert, no motor/sensory deficits, patient coordinator II-XII nml as tested Skin Exam: Present: normal color, warm/dry Progress - Results and Orders Patient's Lab Results:: I have reviewed the patient's lab results. - Vital Signs Patient's Vital Signs:: I have reviewed the patient's vital signs. Vital Signs: Vital Signs 04/22/20 14:54 Temperature 35.9 C L Pulse Rate 90 Respiratory Rate 20 Blood Pressure 153/87 H O2 Sat by Pulse Oximetry 100 - EKG EKG #1 EKG: NSR EKG read: Interp. by me EKG Comments: Paced rate 81. No clear evidence of STEMI - X-Ray X-Ray #1 X-Ray: chest Interpretation: Interp. by me X-ray Comments: I personally reviewed CXR image as well as official radiology report - Progress/Reassessment Chief Complaint: Dyspnea Progress Note-Subjective: 04/22/20 16:52 IV lasix given. He has new pleural effusion and CHF with severe edema. This is a failure of outpatient management. Given his renal function and significant co morbidities He will require observation in the hospital. I spoke with case management, observation status. Departure Clinical Impression: CHF exacerbation, Pleural effusion, Renal insufficiency, Failure of outpatient treatment - Departure Disposition: Still a patient Condition: Fair
[2020-04-22 15:52] LABS: Troponin I 0.029 ng/mL (0.00-0.10)
[2020-04-22 15:57] LABS: Albumin * 2.8 gm/dl (3.4-5.0); Anion Gap 12.9 mmol/L (6.8-13.8); BUN/Creatinine Ratio 16.9 (9.0-21.6); Bilirubin, Total 0.9 mg/dL (0.0-1.1); Ca. Corrected For Albumin 9.7 mg/dL (8.4-10.2); Calcium * 9.1 mg/dL (7.9-10.9); Carbon Dioxide 26.6 mmol/L (24-32.6); Potassium 3.5 mmol/L (3.4-4.6); Total Protein 7.7 gm/dL (6.2-8.2)
--- NOTE | 2020-04-22 18:11 | HP ---
Chief Complaint - Chief Complaint Date of Service: 04/22/20 Time of Service: 16:45 Chief Complaint: shortness of breath History of Present Illness: Pt with extensive PMHx, including atrial fibrillation, RHODA on CPAP, aortic valve stenosis S/P TAVR October 2019, previous CVA, DM with neuropathy and previous foot ulcers, stage III CKD. He currently has a drain, reportedly in his gallbladder, place at the [facility] approximately 5 weeks ago. He subsequently spent 5 weeks at a rehab facility after that drain was placed. He reports being unable to have the GB removed at that time due to inflammation, so this drain was placed. He has been on antibiotics multiple times recently. He was at home and developed a cough, SOB, and lower extremity and abdominal edema. Denies CP, chills, or fever. He's had some diarrhea this week. He was unable to see his PCP today, and came to the ED. Workup there was negative for COVID. WBC, neutrophils not elevated. Frontal one view CXR showed mild cardiac enlargement, pulmonary vascular congestion, and a new pleural effusion. He was given 40 mg IV lasix in the ED, and rene catheter placed. He is afebrile, no abnormalities of his vitals, and is able to give full history. He is admitted for diuresis. Medical History (Last Reviewed 04/22/20 @ 17:56 by Cachorro Lawson RN) Diabetic ulcer of left foot (Acute) Onset Date: Unknown BPH with urinary obstruction Onset Date: Unknown Dr. Raul Fall MD Back pain Onset Date: Unknown L2-3 disc bulge Incontinence Onset Date: Unknown Influenza vaccine refused Onset Date: Unknown Wants to receive at later date. 04/06/19. SCOT Mullen Prostate cancer Onset Date: Unknown Urinary incontinence Onset Date: Unknown Atrial fibrillation Onset Date: ~1995 PAF Coronary artery disease Onset Date: Unknown Diabetes Onset Date: Unknown Diabetes mellitus type 2 in obese Onset Date: Unknown Elevated cholesterol Onset Date: Unknown Hyperlipidemia Onset Date: Unknown Hypertension Onset Date: Unknown Joint pain Onset Date: 09/06/11 Neuropathy Onset Date: Unknown Obesity Onset Date: Unknown Osteoarthritis Onset Date: 09/06/11 Sleep apnea Onset Date: Unknown CPAP Hx of intestinal obstruction Onset Date: Unknown Kidney stones Onset Date: ~08/2002 Partial small bowel obstruction Onset Date: Unknown Surgical History: Surgical History (Last Reviewed 04/22/20 @ 17:56 by Cachorro Lawson RN) Hx of aortic valve replacement Onset Date: ~10/2019 U oF I Hx of heart surgery Onset Date: ~10/2019 [facility] I-Tevac procedure Abnormal colonoscopy Onset Date: 01/09/10 Bagan-2 tubular adenomas and 1 hyperplastic polyp H/O barium enema Onset Date: 05/19/15 normal-redundant colon. Recheck in 10 years. H/O cardiac catheterization Onset Date: 11/26/02 normal EF minimal CAD right dominant H/O cardioversion Onset Date: 01/21/03 Dr. Leonardo SAVAGE H/O lithotripsy Onset Date: ~05/2008 H/O radical prostatectomy Onset Date: ~12/2009 History of extraction of renal calculus Onset Date: ~07/2008 History of gastric surgery Onset Date: ~1999 Hx of abdominal surgery Onset Date: Unknown Hx of total knee arthroplasty Onset Date: ~2009 Left-[facility] [place] Normal colonoscopy Onset Date: 05/18/15 03/14/01 01' [place]. 15' Bagan-extremely redundant capacious colon. Normal to hepatic flexure. Barium edema done-nomal. Recheck 10 years with barium edema. Normal cystoscopy Onset Date: 12/09/13 [place] Status post epidural steroid injection Onset Date: 05/18/15 x2 07/22/02 artificial urinary sphincter insertion Onset Date: ~2010 [facility] Family History: Family History (Last Reviewed 04/22/20 @ 17:56 by Cachorro Lawson RN) Brother Heart disease, Onset Age: 44 coronary stent placement Neuropathy Brother , age 7-ruptured appendix age 65- suicide Ruptured appendix suicide Father , 77 Emphysema of lung Mother , 62 Myocardial infarction Hypertension Cancer Breast Diabetes Heart disease Sister Myocardial infarction Heart disease Sister Myocardial infarction 44, 48, 62, and 65 Cancer, Onset Age: 62 breast CHF (congestive heart failure), Onset Age: 85 Son A-fib paroxysmal Social History: (Last Reviewed 04/22/20 @ 17:56 by Cachorro Lawson RN) Social History: Marital status: household members: spouse current occupational status: retired Highest education level completed: Bachelor's degree Service: No Tobacco: Smoking Status: Never smoker Alcohol: alcohol intake: former Substance Use: substance use type: does not use Dietary Habits: caffeine: Yes caffeine comment: 2-3 Type: coffee Personal Safety: victim of physical abuse: No victim of sexual abuse: No Review Of Systems (GEN) - Review of Systems Generalized/Overall Review: Absent: Chills, Fever Respiratory: Present: Cough, Shortness of Breath Cardiac: Present: Edema. Absent: Chest Pain Abdominal: Present: Diarrhea, Other - drain in right abdomen. Absent: Abdominal Pain Genitourinary: Present: No Symptoms Reported Musculoskeletal: Present: No Symptoms Reported Neurological: Present: Other - nerve pain Skin: Present: No Symptoms Reported Immunizations: IMMUNIZATION HX Immunizations Up to Date Yes History of Influenza Vaccine No Hx Pneumococcal Vaccination No Allergies/Adverse Reactions: Allergies Allergy/AdvReac Type Severity Reaction Status Date / Time Sulfa (Sulfonamide Allergy Severe facial and Verified 04/22/20 17:56 Antibiotics) tongue [Sulfa(Sulfonamide swelling Antibiotics)] tetracycline [Tetracycline] Allergy Severe facial and Verified 04/22/20 17:56 tongue swelling clindamycin Allergy Intermediate rash on Verified 04/22/20 17:56 genitals levofloxacin [From Levaquin] AdvReac Intermediate severe rash Verified 04/22/20 17:56 seasonal allergies AdvReac Intermediate rhinitis Uncoded 04/22/20 17:56 Home Medications: HOME MEDICATIONS Atorvastatin Calcium 20 mg PO DAILY 12/31/16 [Last Taken Unknown] Irbesartan [Avapro] 300 mg PO DAILY 12/31/16 [Last Taken Unknown] cyanocobalamin (vitamin B-12) 1,000 mcg tablet 1,000 mcg PO DAILY 01/24/18 [Last Taken Unknown] polyethylene glycol 3350 17 gram/dose oral powder 17 g PO DAILY 01/07/19 [Last Taken Unknown] sennosides 8.6 mg tablet 8.6 mg PO BID 01/07/19 [Last Taken Unknown] allopurinol 100 mg tablet 100 mg PO BID #180 tab 08/17/19 [Last Taken Unknown] Aspirin [Aspirin EC] 81 mg PO DAILY 12/03/19 [Last Taken Unknown] Ferrous Sulfate [High Potency Iron] 65 mg PO BID 12/03/19 [Last Taken Unknown] Lactobacillus Rhamnosus GG [Culturelle] 1 tab PO DAILY 12/03/19 [Last Taken Unknown] Levomefolate/B6/B12/Algal Oil [Metanx Capsule] 1 ea PO DAILY 12/03/19 [Last Taken Unknown] Metoprolol Succinate [Toprol Xl] 50 mg PO DAILY 12/03/19 [Last Taken Unknown] amlodipine 2.5 mg tablet 2.5 mg PO DAILY #0.1 tab 12/04/19 [Last Taken Unknown] Clotrimazole/Betamethasone Dip [Lotrisone Cream] 1 applic TOPICAL PRN 01/24/20 [Last Taken Unknown] Pregabalin [Lyrica] 100 mg PO QID 01/24/20 [Last Taken Unknown] Dabigatran Etexilate Mesylate [Pradaxa] 150 mg PO BID 02/09/20 [Last Taken Unknown] Hydrochlorothiazide [Microzide] 12.5 mg PO DAILY 02/09/20 [Last Taken Unknown] Zinc Oxide/Petrolatum,White [Sensi-Care Protective Barrier] 113 gm TOPICAL PRN PRN 02/09/20 [Last Taken Unknown] oxyCODONE HCL/ACETAMINOPHEN [Oxycodone-Acetaminophen 5-325] 1 ea PO PRN PRN 02/09/20 [Last Taken Unknown] metFORMIN HCL [Metformin HCl] 500 mg PO BID 02/10/20 [Last Taken Unknown] Ertapenem Sodium [Invanz (Ertapenem)] 1,000 mg IV DAILY 03/11/20 [Last Taken Unknown] Vancomycin HCl [Vancocin HCl] 2.5 ml PO QID 03/11/20 [Last Taken Unknown] fentanyl 12 mcg/hr transdermal patch 1 patch TRANSDERMAL Q72H #5 ea 03/15/20 [Last Taken Unknown] Acetaminophen 650 mg PO TID PRN 04/22/20 [Last Taken Unknown] Ascorbic Acid [Vitamin C] 500 mg PO DAILY 04/22/20 [Last Taken Unknown] Bisacodyl [Dulcolax Suppository] 10 mg RC DAILY PRN 04/22/20 [Last Taken Unknown] Bisacodyl [Laxative] 10 mg PO DAILY PRN 04/22/20 [Last Taken Unknown] Cholecalciferol [Vitamin D] 2,000 unit PO DAILY 04/22/20 [Last Taken Unknown] Docusate Sodium 200 mg PO DAILY 04/22/20 [Last Taken Unknown] Famotidine [Pepcid] 40 mg PO BID 04/22/20 [Last Taken Unknown] Furosemide [Lasix] 80 mg PO DAILY 04/22/20 [Last Taken Unknown] Magnesium Hydroxide [Milk Of Magnesia] 30 ml PO DAILY PRN 04/22/20 [Last Taken Unknown] Multivitamin 1 ea PO DAILY 04/22/20 [Last Taken Unknown] Potassium Citrate [Urocit-K] 10 meq PO TID 04/22/20 [Last Taken Unknown] Saccharomyces Boulardii [Florastor] 250 mg PO DAILY 04/22/20 [Last Taken Unknown] Exam - Exam Vital Signs: Vital Signs - Last Taken Temp 36.0 C 04/22/20 17:50 Pulse 61 04/22/20 17:50 Resp 18 04/22/20 17:50 BP 132/68 04/22/20 17:50 Pulse Ox 100 04/22/20 17:50 Constitutional: Present: Alert, Cooperative, No distress, Elderly Neck: Absent: lymphadenopathy (R), lymphadenopathy (L) Respiratory: Present: no respiratory distress, crackles - bilateral bases. Absent: wheezing Cardiovascular/Chest: Present: normal peripheral pulses Abdomen: Present: obese, other - Dependent edema. drain in right abdomen covered with clean bandage. rene catheter in place Extremity: Present: lower extremity edema - 3+ to the knee Appearance: Present: appropriate appearance Eye contact: Present: cooperative, good eye contact Diagnostic Studies: Abnormal Lab Results 04/22/20 04/22/20 Range/Units 15:15 15:15 RBC 3.84 L (4.7-6.0) M/mm3 Hgb 10.7 L (13.5-18.0) gm/dL Hct 35.6 L (42.0-52.0) % MCHC 30.1 L (32-36) g/dl RDW 19.2 H (11.5-14.0) % Plt Count 139 L (150-450) K/mm3 MPV 11.5 H (8-11.3) fl Immature Gran # (Auto) 0.04 H (0.000-0.0310) K/mm3 Lymphocytes % 19.2 L (20-51) % Monocytes % 12.6 H (0.0-9) % Eosinophils % 5.9 H (0.0-3.0) % Basophils % 1.2 H (0.0-1.0) % Monocytes # 1.2 H (0.0-1.0) k/mm3 BUN 26 H (6-23) mg/dL Creatinine 1.54 H (0.4-1.4) mg/dL Est GFR (Non-Af Amer) 47 L D (60-130) mL/min Alkaline Phosphatase 183 H (50-170) U/L B-Natriuretic Peptide 1883 H (5-650) pg/mL Albumin 2.8 L (3.4-5.0) gm/dl Laboratory Results WBC 9.4 K/mm3 (4.0-10.5) 04/22/20 15:15 RBC 3.84 M/mm3 (4.7-6.0) L 04/22/20 15:15 Hgb 10.7 gm/dL (13.5-18.0) L 04/22/20 15:15 Hct 35.6 % (42.0-52.0) L 04/22/20 15:15 MCV 92.7 fl (78-100) 04/22/20 15:15 MCH 27.9 pg (27-31) 04/22/20 15:15 MCHC 30.1 g/dl (32-36) L 04/22/20 15:15 RDW 19.2 % (11.5-14.0) H 04/22/20 15:15 Plt Count 139 K/mm3 (150-450) L 04/22/20 15:15 MPV 11.5 fl (8-11.3) H 04/22/20 15:15 Immature Gran % (Auto) 0.40 % (0.001-0.429) 04/22/20 15:15 Immature Gran # (Auto) 0.04 K/mm3 (0.000-0.0310) H 04/22/20 15:15 Neutrophils % 60.7 % (42-75.0) 04/22/20 15:15 Lymphocytes % 19.2 % (20-51) L 04/22/20 15:15 Monocytes % 12.6 % (0.0-9) H 04/22/20 15:15 Eosinophils % 5.9 % (0.0-3.0) H 04/22/20 15:15 Basophils % 1.2 % (0.0-1.0) H 04/22/20 15:15 Nucleated RBC % 0.0 k/mm3 (0-1) 04/22/20 15:15 Neutrophils # 5.7 K/mm3 (1.3-6.0) 04/22/20 15:15 Lymphocytes # 1.80 k/mm3 (1.5-3.5) 04/22/20 15:15 Monocytes # 1.2 k/mm3 (0.0-1.0) H 04/22/20 15:15 Eosinophils # 0.6 k/mm3 (0.0-0.7) 04/22/20 15:15 Absolute Basophils 0.1 k/mm3 (0.0-0.1) 04/22/20 15:15 Sodium 142 mmol/L (132-142) 04/22/20 15:15 Plasma Sodium 142 mmol/L (130-142) 04/22/20 15:15 Potassium 3.5 mmol/L (3.4-4.6) 04/22/20 15:15 Chloride 106 mmol/L (97-106) 04/22/20 15:15 Carbon Dioxide 26.6 mmol/L (24-32.6) 04/22/20 15:15 Anion Gap 12.9 mmol/L (6.8-13.8) 04/22/20 15:15 BUN 26 mg/dL (6-23) H 04/22/20 15:15 Creatinine 1.54 mg/dL (0.4-1.4) H 04/22/20 15:15 Est GFR (Non-Af Amer) 47 mL/min (60-130) L D 04/22/20 15:15 BUN/Creatinine Ratio 16.9 (9.0-21.6) 04/22/20 15:15 Random Glucose 109 mg/dL (70-110) 04/22/20 15:15 Calcium 9.1 mg/dL (7.9-10.9) 04/22/20 15:15 Calcium Adj for Albumin 9.7 mg/dL (8.4-10.2) 04/22/20 15:15 Total Bilirubin 0.9 mg/dL (0.0-1.1) 04/22/20 15:15 AST 46 U/L (0-48) 04/22/20 15:15 ALT 28 U/L (19-67) 04/22/20 15:15 Alkaline Phosphatase 183 U/L (50-170) H 04/22/20 15:15 Troponin I 0.029 ng/mL (0.00-0.10) 04/22/20 15:15 B-Natriuretic Peptide 1883 pg/mL (5-650) H 04/22/20 15:15 Total Protein 7.7 gm/dL (6.2-8.2) 04/22/20 15:15 Albumin 2.8 gm/dl (3.4-5.0) L 04/22/20 15:15 SARS-CoV-2 (PCR) Not detected (NotDetected) 04/22/20 15:25 Assessment/Plan - Narrative Narrative: He was recently on ertapenem, but I believe this regimen was completed earlier this month. He was also taking metronidazole for C diff, but still reports having diarrhea, so will recheck for C diff. - Assessment/Plan (1) Fluid overload Assessment: He did not have signs of heart failure on echo done in January. He was given 40 mg IV lasix in the ED, and will repeat again tonight. Will continue bid lasix, and try to remove his catheter in the morning. If he does not diurese with IV lasix, will repeat echo. If adequate diuresis, he could DC home tomorrow. Problem: Acute (2) Diabetes mellitus Assessment: A1C was 6.0 in December. Will continue home meds when verified. Admission glucose of 109. Problem: Chronic Qualifiers: (3) Pleural effusion Assessment: He has a new pleural effusion on the left, not present in January. He is able to oxygenate on room air, and vitals are normal. Will administer IV furosemide. Problem: Acute (4) Cholecystostomy care Assessment: There is a drainage bag in place. He is to follow up with the [facility] in May. No intervention needed. Problem: Acute (5) Aortic valve stenosis Assessment: He reports undergoing a TAVR in October of this year. If he does not improve with IV lasix, will obtain echocardiogram. Problem: Chronic Qualifiers: (6) Diabetic neuropathy Problem: Chronic Qualifiers: (7) Paroxysmal A-fib Assessment: Continue home pradaxa and metoprolol. Problem: Chronic (8) Renal insufficiency Assessment: His renal function today appears to be his baseline. Will reassess daily, as we will be giving IV lasix. Problem: Chronic (9) RHODA on CPAP Assessment: continue home PAP settings Problem: Chronic
[2020-04-22] MEDS: PREGABALIN 50 MG CAPSULE PO SCH ×2 (18:16→21:21)
[2020-04-22] MEDS ORDERED: BISACODYL 10 MG SUPP.RECT RC PRN (18:24)
[2020-04-22] MEDS ORDERED: BISACODYL 5 MG TABLET.DR PO PRN (19:09)
[2020-04-22] MEDS ORDERED: ZINC OXIDE/COD LIVER OIL 113 APPL TUBE TP PRN (19:32)
[2020-04-22] MEDS ORDERED: SENNOSIDES 8.6 MG TABLET PO SCH (21:00)
[2020-04-22] MEDS: FAMOTIDINE 20 MG TABLET PO SCH (21:20)
[2020-04-22] MEDS: DABIGATRAN ETEXILATE MESYLATE 150 MG CAPSULE PO SCH (21:21)
[2020-04-22] MEDS: ALLOPURINOL 100 MG TABLET PO SCH (21:21)
[2020-04-22] MEDS: amLODIPine BESYLATE 5 MG TABLET PO SCH (21:21)
[2020-04-22] MEDS: ROSUVASTATIN CALCIUM 10 MG TABLET PO SCH ×2 (21:22→21:38)
[2020-04-22] MEDS: ACETAMINOPHEN 325 MG TABLET PO PRN (21:24)
[2020-04-23] MEDS: ACETAMINOPHEN 325 MG TABLET PO PRN (05:11)
[2020-04-23] MEDS ORDERED: FUROSEMIDE 10 MG/ML VIAL IV SCH (06:00)
[2020-04-23 07:20] LABS: Albumin * 2.6 gm/dl (3.4-5.0); Anion Gap 12.7 mmol/L (6.8-13.8); BUN/Creatinine Ratio 17.7 (9.0-21.6); Ca. Corrected For Albumin 9.6 mg/dL (8.4-10.2); Calcium * 8.8 mg/dL (7.9-10.9); Carbon Dioxide 26.7 mmol/L (24-32.6); Potassium 3.4 mmol/L (3.4-4.6); Total Protein 6.6 gm/dL (6.2-8.2)
[2020-04-23] MEDS: POLYETHYLENE GLYCOL 3350 17 GM PACKET PO SCH (08:54)
[2020-04-23] MEDS: amLODIPine BESYLATE 5 MG TABLET PO SCH (08:56)
[2020-04-23] MEDS: METOPROLOL SUCCINATE 50 MG TABLET.SA PO SCH (08:56)
[2020-04-23] MEDS: FAMOTIDINE 20 MG TABLET PO SCH ×2 (08:57→21:58)
[2020-04-23] MEDS: ASCORBIC ACID 500 MG TABLET PO SCH (08:58)
[2020-04-23] MEDS: ASPIRIN 81 MG TABLET.DR PO SCH (08:58)
[2020-04-23] MEDS: DOCUSATE SODIUM 100 MG CAPSULE PO SCH (08:58)
[2020-04-23] MEDS: PREGABALIN 50 MG CAPSULE PO SCH ×4 (08:59→21:58)
[2020-04-23] MEDS: ALLOPURINOL 100 MG TABLET PO SCH ×2 (08:59→21:58)
[2020-04-23] MEDS ORDERED: SACCHAROMYCES BOULARDII 250 MG CAPSULE PO SCH (09:00)
[2020-04-23] MEDS ORDERED: POLYETHYLENE GLYCOL 3350 119 GM BTL PO SCH (09:00)
[2020-04-23] MEDS ORDERED: FLU VACC QS2020-21(6MOS UP)/PF 60 MCG/0.5 ML SYRINGE IM ONE (09:00)
[2020-04-23] MEDS: DABIGATRAN ETEXILATE MESYLATE 150 MG CAPSULE PO SCH ×2 (09:03→21:58)
--- NOTE | 2020-04-23 09:47 | PN ---
Subjective - Date and Time Seen Date: 04/23/20 Time: 09:39 Subjective Narrative: Was able to walk to the bathroom. Still feels a bit SOB. Small amount of diarrhea. Objective - Review of Systems Generalized/Overall Review: Denies: Fever Respiratory: Reports: Cough - better, Shortness of Breath Cardiac: Reports: Edema. Denies: Chest Pain Abdominal: Reports: Other - cholecystotomy in place Genitourinary Symptoms: Reports: Incontinent - at baseline Musculoskeletal Complaints: Reports: No Symptoms Reported Neurological: Reports: No Symptoms Reported - Vitals Vitals: Last Vital Signs Temp 36.5 C 04/23/20 07:04 Pulse 76 04/23/20 08:56 Resp 18 04/23/20 07:04 BP 127/70 04/23/20 08:56 Pulse Ox 92 L 04/23/20 07:04 - Abnormal Lab Findings Abnormal Lab Findings: Abnormal Lab Results 04/22/20 04/22/20 04/23/20 Range/Units 15:15 15:15 06:30 RBC 3.84 L (4.7-6.0) M/mm3 Hgb 10.7 L (13.5-18.0) gm/dL Hct 35.6 L (42.0-52.0) % MCHC 30.1 L (32-36) g/dl RDW 19.2 H (11.5-14.0) % Plt Count 139 L (150-450) K/mm3 MPV 11.5 H (8-11.3) fl Immature Gran # (Auto) 0.04 H (0.000-0.0310) K/mm3 Lymphocytes % 19.2 L (20-51) % Monocytes % 12.6 H (0.0-9) % Eosinophils % 5.9 H (0.0-3.0) % Basophils % 1.2 H (0.0-1.0) % Monocytes # 1.2 H (0.0-1.0) k/mm3 BUN 26 H 26 H (6-23) mg/dL Creatinine 1.54 H 1.47 H (0.4-1.4) mg/dL Est GFR (Non-Af Amer) 47 L D 50 L (60-130) mL/min Alkaline Phosphatase 183 H (50-170) U/L B-Natriuretic Peptide 1883 H (5-650) pg/mL Albumin 2.8 L 2.6 L (3.4-5.0) gm/dl - Exam Constitutional: Present: Alert, Cooperative, Well developed, No distress Respiratory: Present: lungs clear, normal breath sounds, crackles - mild, bilateral bases Cardiovascular/Chest: Present: regular rate, rhythm Abdomen: Present: soft, obese, other - cholecystotomy tube in right abdomen, covered with bandage Extremity: Present: lower extremity edema - 1+ bilaterally Eye contact: Present: cooperative, good eye contact Cauti Physician Documentation - Urinary Catheter Management Urethral (Vickers) Date of Insertion: 04/22/20 Time of Insertion: 16:33 Assessment/Plan - Problems/Diagnosis (1) Fluid overload Problem: Acute Narrative: Unclear etiology at this time, but he is responding to lasix. Weight is down 8 pounds from yesterday afternoon. He actually is getting his same home lasix dose, but via IV. Will continue 40 mg IV lasix bid today. He is oxygenating on room air. Anticipate DC tomorrow. I feel like heart failure is less likely, as he just had an echo two months ago, and his EF was 55-60%. Nephrotic syndrome is possible source, and UA pending, to assess for protein. He has hypoalbuminemia, with an albumin of 2.6 this morning, and will add boost. I will also try to obtain records from his DC summary from the [facility] [place], as his daughter reports some fluid overload there as well. PT eval pending, though I am not sure this is available today since it's Saturday. (2) Diabetes mellitus Problem: Chronic Qualifiers: (3) Pleural effusion Problem: Acute (4) Cholecystostomy care Problem: Acute (5) Aortic valve stenosis Problem: Chronic Qualifiers: (6) Diabetic neuropathy Problem: Chronic Qualifiers: (7) Paroxysmal A-fib Problem: Chronic (8) Renal insufficiency Problem: Chronic Narrative: Renal function improved, with creatinine from 1.54 to 1.47, and GFR from 47 to 50. (9) RHODA on CPAP Problem: Chronic (10) Diarrhea Problem: Chronic Narrative: He has had extensive antibiotics over the last few months. He was treated for C. difficile. He continues to have some mild diarrhea, and repeat C. difficile test pending.
[2020-04-23] MEDS: FUROSEMIDE 10 MG/ML VIAL IV SCH (13:11)
[2020-04-23 13:23] LABS: Urine Appearance Slightly Cloudy (CLEAR); Urine Color Yellow
[2020-04-23 13:29] LABS: Urine Bacteria None Seen; Urine Bilirubin Negative (NEGATIVE); Urine Blood 250 /ul (NEGATIVE); Urine Ketone Negative (NEGATIVE); Urine Nitrite Negative (NEGATIVE); Urine Protein Negative (NEGATIVE); Urine RBC >50 /hpf (0-5); Urine Urobilinogen Normal (NORMAL); Urine WBC 0-5 /hpf (0-5); Urine pH 6.5 pH (5.0-7.0)
[2020-04-23] MEDS: ROSUVASTATIN CALCIUM 10 MG TABLET PO SCH (21:58)
[2020-04-24] MEDS: FUROSEMIDE 10 MG/ML VIAL IV SCH (05:40)
[2020-04-24 06:42] LABS: Albumin * 2.5 gm/dl (3.4-5.0); Anion Gap 11.6 mmol/L (6.8-13.8); BUN/Creatinine Ratio 17.8 (9.0-21.6); Calcium * 9.1 mg/dL (7.9-10.9); Carbon Dioxide 26.7 mmol/L (24-32.6); Potassium 3.3 mmol/L (3.4-4.6); Total Protein 7.1 gm/dL (6.2-8.2)
[2020-04-24] MEDS ORDERED: FUROSEMIDE 10 MG/ML VIAL IV ONE (07:00)
[2020-04-24] MEDS: PREGABALIN 50 MG CAPSULE PO SCH ×2 (08:04→13:12)
[2020-04-24] MEDS: amLODIPine BESYLATE 5 MG TABLET PO SCH (08:04)
[2020-04-24] MEDS: DABIGATRAN ETEXILATE MESYLATE 150 MG CAPSULE PO SCH (08:04)
[2020-04-24] MEDS: ASPIRIN 81 MG TABLET.DR PO SCH (08:04)
[2020-04-24] MEDS: ASCORBIC ACID 500 MG TABLET PO SCH (08:05)
[2020-04-24] MEDS: METOPROLOL SUCCINATE 50 MG TABLET.SA PO SCH (08:05)
[2020-04-24] MEDS: ALLOPURINOL 100 MG TABLET PO SCH (08:05)
[2020-04-24] MEDS: FAMOTIDINE 20 MG TABLET PO SCH (08:05)
[2020-04-24] MEDS: DOCUSATE SODIUM 100 MG CAPSULE PO SCH (08:06)
[2020-04-24] MEDS: POLYETHYLENE GLYCOL 3350 17 GM PACKET PO SCH (08:08)
--- NOTE | 2020-04-24 11:43 | DS ---
(1) Edema due to hypoalbuminemia Problem: Acute (2) Fluid overload Problem: Resolved (3) Diabetes mellitus Problem: Chronic Qualifiers: (4) Pleural effusion Problem: Acute (5) Cholecystostomy care Problem: Chronic (6) Aortic valve stenosis Problem: Chronic Qualifiers: (7) Diabetic neuropathy Problem: Chronic Qualifiers: (8) Paroxysmal A-fib Problem: Chronic (9) Renal insufficiency Problem: Chronic (10) RHODA on CPAP Problem: Chronic (11) Diarrhea Problem: Chronic Date of Discharge:: 04/24/20 Hospital Course: Pt with extensive PMHx, including atrial fibrillation, RHODA on CPAP, aortic valve stenosis S/P TAVR October 2019, previous CVA, DM with neuropathy and previous foot ulcers, stage III CKD. He currently has a cholecystotomy, placed at the [facility] approximately 5 weeks ago. He subsequently spent 5 weeks at a rehab facility after that drain was placed. He reports being unable to have the GB removed at that time due to inflammation, so this drain was placed. He has been on antibiotics multiple times recently. He was at home and developed a cough, SOB, and lower extremity and abdominal edema. Denies CP, chills, or fever. He's had some diarrhea this week. He was unable to see his PCP, and came to the ED. Workup there was negative for COVID. WBC, neutrophils not elevated. Frontal one view CXR showed mild cardiac enlargement, pulmonary vascular congestion, and a new pleural effusion. He was given 40 mg IV lasix in the ED, and rene catheter placed. He is afebrile, no abnormalities of his vitals, and is able to give full history. He was admitted for diuresis. He received 40 mg IV lasix bid during his stay, with good response. His most recent echo was 2 months prior, and his EF was 55-60%. Renal function was at his baseline, though his albumin was low. UA was negative for protein. His albumin was low however, and this was felt to be contributing to his edema. Discussed taking boost or ensure with meals. The only medication change will be an increase his home lasix dose to 120 mg daily, and have him follow closely with his PCP. He is scheduled to see his lap runner in May, and discussed possible trying to have a sooner appointment. Procedures Performed: none Results and Findings: Lab Pending Results 04/22/20 15:15: WBC 9.4, RBC 3.84 L, Hgb 10.7 L, Hct 35.6 L, MCV 92.7, MCH 27.9, MCHC 30.1 L, RDW 19.2 H, Plt Count 139 L, MPV 11.5 H, Immature Gran % (Auto) 0.40, Immature Gran # (Auto) 0.04 H, Neutrophils % 60.7, Lymphocytes % 19.2 L, Monocytes % 12.6 H, Eosinophils % 5.9 H, Basophils % 1.2 H, Nucleated RBC % 0.0, Neutrophils # 5.7, Lymphocytes # 1.80, Monocytes # 1.2 H, Eosinophils # 0.6, Absolute Basophils 0.1 04/22/20 15:15: Sodium 142, Plasma Sodium 142, Potassium 3.5, Chloride 106, Carbon Dioxide 26.6, Anion Gap 12.9, BUN 26 H, Creatinine 1.54 H, Est GFR (Non- Af Amer) 47 L D, BUN/Creatinine Ratio 16.9, Random Glucose 109, Calcium 9.1, Calcium Adj for Albumin 9.7, Total Bilirubin 0.9, AST 46, ALT 28, Alkaline Phosphatase 183 H, Troponin I 0.029, B-Natriuretic Peptide 1883 H, Total Protein 7.7, Albumin 2.8 L 04/22/20 15:25: SARS-CoV-2 (PCR) Not detected 04/23/20 06:30: Sodium 142, Plasma Sodium 142, Potassium 3.4, Chloride 106, Carbon Dioxide 26.7, Anion Gap 12.7, BUN 26 H, Creatinine 1.47 H, Est GFR (Non- Af Amer) 50 L, BUN/Creatinine Ratio 17.7, Random Glucose 90, Calcium 8.8, Calcium Adj for Albumin 9.6, Total Bilirubin 1.0, AST 36, ALT 24, Alkaline Phosphatase 154, Total Protein 6.6, Albumin 2.6 L 04/23/20 09:28: Stl C.difficile Tox A&B Negative 04/23/20 13:03: Urine Color Yellow, Urine Appearance Slightly cloudy, Urine pH 6.5, Ur Specific Webb 1.020, Urine Protein Negative, Urine Glucose (UA) Negative, Urine Ketones Negative, Urine Blood 250 H, Urine Nitrate Negative, Urine Bilirubin Negative, Urine Urobilinogen Normal, Ur Leukocyte Esterase Negative, Urine RBC >50 H, Urine WBC 0-5, Ur Epithelial Cells 0-5, Urine Bacteria None seen 04/24/20 06:10: Sodium 140, Plasma Sodium 140, Potassium 3.3 L, Chloride 105, Carbon Dioxide 26.7, Anion Gap 11.6, BUN 27 H, Creatinine 1.52 H, Est GFR (Non- Af Amer) 48 L, BUN/Creatinine Ratio 17.8, Random Glucose 93, Calcium 9.1, Calcium Adj for Albumin 10.0, Total Bilirubin 1.0, AST 30, ALT 20, Alkaline Phosphatase 144, Total Protein 7.1, Albumin 2.5 L Discharge Location: Home Disposition: Home self-senior care Health Agency: Other - He is currently getting home health Condition: Fair Discharge Activity: Activity as tolerated Discharge Diet: General/regular food Referrals: Laila Roberts MD [Primary Care Provider] - One Week (Please make appt for this week) Prescriptions (Any new or edited meds): RX: Furosemide [Lasix] 120 mg PO DAILY 30 Days #120 Complete Home Medications List: Complete Home Medication List: RX: Atorvastatin Calcium 20 mg PO DAILY 12/31/16 cyanocobalamin (vitamin B-12) 1,000 mcg tablet 1,000 mcg PO DAILY 01/24/18 polyethylene glycol 3350 17 gram/dose oral powder 17 g PO DAILY 01/07/19 allopurinol 100 mg tablet 100 mg PO BID #180 tab 08/17/19 RX: Aspirin [Aspirin EC] 81 mg PO DAILY 12/03/19 RX: Ferrous Sulfate [High Potency Iron] 65 mg PO BID 12/03/19 RX: Lactobacillus Rhamnosus GG [Culturelle] 1 tab PO DAILY 12/03/19 RX: Levomefolate/B6/B12/Algal Oil [Metanx Capsule] 1 ea PO DAILY 12/03/19 RX: Metoprolol Succinate [Toprol Xl] 50 mg PO DAILY 12/03/19 amlodipine 2.5 mg tablet 2.5 mg PO DAILY #0.1 tab 12/04/19 RX: Clotrimazole/Betamethasone Dip [Lotrisone Cream] 1 applic TOPICAL PRN 01/24/20 RX: Pregabalin [Lyrica] 100 mg PO QID 01/24/20 RX: Dabigatran Etexilate Mesylate [Pradaxa] 150 mg PO BID 02/09/20 RX: Zinc Oxide/Petrolatum,White [Sensi-Care Protective Barrier] 113 gm TOPICAL PRN PRN 02/09/20 RX: Acetaminophen 650 mg PO TID PRN 04/22/20 RX: Ascorbic Acid [Vitamin C] 500 mg PO DAILY 04/22/20 RX: Cholecalciferol [Vitamin D] 2,000 unit PO DAILY 04/22/20 RX: Famotidine [Pepcid] 40 mg PO BID 04/22/20 RX: Magnesium Hydroxide [Milk Of Magnesia] 30 ml PO DAILY PRN 04/22/20 RX: Multivitamin 1 ea PO DAILY 04/22/20 RX: Potassium Citrate [Urocit-K] 10 meq PO TID 04/22/20 RX: Furosemide [Lasix] 120 mg PO DAILY 30 Days #120 04/24/20 Forms: Patient Portal Registration
[2020-04-24 13:19] VITALS: BP 118/58
[2020-04-25] MEDS ORDERED: FUROSEMIDE 40 MG TABLET PO SCH (09:00)
== END 2020-04-24 13:38 | disposition home health service (06) ==
LOC: ER 14:54 → MS 14:54
PROVIDERS: ADMIT Family Medicine; ATTEND Internal Medicine
DX: G47.33 Obstructive sleep apnea (adult) (pediatric); E87.70 Fluid overload, unspecified; Z79.84 Long term (current) use of oral hypoglycemic drugs; Z23 Encounter for immunization; R19.7 Diarrhea, unspecified; E11.22 Type 2 diabetes mellitus with diabetic chronic kidney disease; N18.30 Chronic kidney disease, stage 3 unspecified; R06.02 Shortness of breath; I48.0 Paroxysmal atrial fibrillation; J90 Pleural effusion, not elsewhere classified